=== PATIENT | male | born 1955 | race Caucasian/White ===

== ENCOUNTER 2016-10-22 14:59 | Inpatient (IN) | payer OTHER ==
[~2016-10-22] VITALS: Ht 165.1 cm; Wt 58.9 kg
[2016-10-22] MEDS ORDERED: FAMOTIDINE 20 MG INJ IV STA (17:43)
[2016-10-22] MEDS ORDERED: ONDANSETRON 4 MG INJ IV STA (17:43)
[2016-10-22] MEDS ORDERED: SOD CHLORIDE 0.9% 1,000 ML IV STA (17:43)
[2016-10-22] MEDS ORDERED: DEXL60CA2 PO (18:27)
[2016-10-22] MEDS ORDERED: [UNRECOGNIZED DRUG - OTHER] PO (18:31)
[2016-10-22 18:37] LABS: BASOPHIL # 0.1 10^3/ul (0.0-0.1); BASOPHILS % 0.9 % (0.0-2.0); EOSINOPHILS # 0.2 10^3/ul (0.0-0.5); EOSINOPHILS % 3.5 % (0.0-7.0); HEMATOCRIT 43.6 % (42.0-52.0); HEMOGLOBIN 14.7 g/dl (14.0-18.0); LYMPHOCYTES # 1.8 10^3/ul (0.8-2.9); LYMPHOCYTES % 28.6 % (15.0-51.0); MEAN CORPUSCULAR HEMOGLOBIN 29.6 pg (29.0-33.0); MEAN CORPUSCULAR HGB CONC 33.8 g/dl (32.0-37.0); MEAN CORPUSCULAR VOLUME 87.5 fl (82.0-101.0); MONOCYTE # 0.8 10^3/ul (0.3-0.9); MONOCYTES % 13.4 % (0.0-11.0); NEUTROPHIL # 3.4 10^3/ul (1.6-7.5); NEUTROPHILS % 53.6 % (39.0-77.0); PLATELET COUNT 373 10^3/UL (140-440); RED BLOOD COUNT 4.98 10^6/ul (4.70-6.10); RED CELL DISTRIBUTION WIDTH 13.9 % (11.5-14.5); UNCORRECTED WBC 6.3 10^3/ul (4.8-10.8); WHITE BLOOD COUNT 6.3 10^3/ul (4.8-10.8)
[2016-10-22 18:39] LABS: CONDITION 1
[2016-10-22 18:47] LABS: ALBUMIN 3.4 g/dl (3.3-4.9)
[2016-10-22 18:48] LABS: POTASSIUM 3.9 mmol/L (3.5-5.1)
[2016-10-22 18:50] LABS: ALBUMIN/GLOBULIN RATIO 1.06; BILIRUBIN,INDIRECT 0.6 mg/dl (0-1.1); BILIRUBIN,TOTAL 0.6 mg/dl (0.2-1.3); CREATININE 0.59 mg/dl (0.61-1.24); TOTAL PROTEIN 6.6 g/dl (6.1-8.1)
[2016-10-22 18:51] LABS: CALCIUM 8.9 mg/dl (8.4-10.2)
[2016-10-22 18:57] LABS: ADD UMIC NO; URINE BILIRUBIN (Dip) 1+ (NEGATIVE); URINE BLOOD (Dip) NEGATIVE (NEGATIVE); URINE COLOR YELLOW (YELLOW); URINE GLUCOSE (Dip) NEGATIVE (NEGATIVE); URINE KETONES (Dip) TRACE (NEGATIVE); URINE LEUKOCYTE ESTERASE (Dip) NEGATIVE (NEGATIVE); URINE NITRITE (Dip) NEGATIVE (NEGATIVE); URINE TOTAL PROTEIN (Dip) NEGATIVE (NEGATIVE); URINE UROBILINOGEN (Dip) 2.0 E.U./dL (0.1-1.0)
[2016-10-22] MEDS ORDERED: IOHEXOL 300MG/ML 150 ML BTL ONE (19:02)
[2016-10-22] MEDS ORDERED: SOD CHLORIDE 0.9% 100 ML ONE (19:02)
[2016-10-22 19:14] LABS: ICTOTEST NEGATIVE (NEGATIVE)
--- NOTE | 2016-10-22 19:39 | RADRPT ---
PROCEDURE: CT Abdomen and Pelvis with contrast. CLINICAL INDICATION: Abdominal pain, nausea/vomiting status post surgery 2 months ago TECHNIQUE: CT scan of the abdomen and pelvis with contrast was performed on a multidetector high-r Secure-24olution CT scanner. 90 cc of Omnipaque-300 was injected intravenously.. No oral contrast was admin istered. Coronal and sagittal reformatted images were obtained from the axial source images. Images were reviewed on a high-resolution PACS workstation. The total exam CTDI equals 7.53 mGy and the to karthikeyan exam DLP equals 440.5 mGy-cm. COMPARISON: None. FINDINGS: Lungs: There is a nonspecific 4 mm nodular density in the right lower lung lobe. There are 2 nonspe cific nodular densities in the lingula measuring 5 mm and 6 mm respectively. There is minimal linea r atelectasis/fibrosis scattered at the lung bases. There is nonspecific approximate 6 mm nodular d ensity in the left lower lung lobe. Liver: No abnormality seen. Gallbladder: Minimal pericholecystic fluid apparent. Spleen: No abnormality seen. Stomach: There is diffuse wall thickening of the gastric antrum and possibly the first portion of t he duodenum suspicious for malignancy. Opaque sutures apparent in the anterior gastric wall. Pancreas: No intrinsic abnormality is seen. Adrenals: No abnormality seen. Kidneys: Minimal fluid in bilateral renal collecting systems. Bilateral 1 cm renal cysts. Abdominal aorta: No aneurysm seen. Atherosclerotic calcification is seen. Calcification in iliac a rteries. Lymph nodes: There is adenopathy with enlarged lymph nodes in the gastrohepatic ligament, periporta l, peripancreatic, celiac, portocaval, aortocaval, left periaortic regions consistent with metastase s with an approximate 8.3 cm maximum transverse, 9.7 cm maximum anterior-posterior dimension conglom erate siddharth mass. Small bowel: Please see above. Colon: Moderate amount of stool in the rectum. Appendix: Not seen. Bladder: Impression on posterior inferior bladder by enlarged prostate. Appearance of diffuse wall t hickening which may at least partially be due to underdistension. Pelvic organs: Moderately enlarged prostate with impression on posterior inferior bladder. Ascites: Small amount of ascites. Osseous structures: Lumbar spondylosis. Degenerative changes at sacroiliac joints and hips. IMPRESSION: Diffuse wall thickening of the gastric antrum and possibly the first portion of the duodenum suspici ous for malignancy. There is marked narrowing of the region of the pylorus/ duodenal bulb suggesting impending gastric outlet obstruction. Adenopathy with enlarged lymph nodes in the gastrohepatic lig ament, periportal, peripancreatic, celiac, portocaval, aortocaval, left periaortic regions consisten t with metastases with an approximate 8.3 cm maximum transverse, 9.7 cm maximum anterior-posterior d imension conglomerate siddharth mass. Nonspecific nodular densities at lung bases. These could represen t metastases. Small amount of ascites. Moderately enlarged prostate. Please see above. A call repo rt was made to <<Referring Physicians Name>> on <<DATETIME>>. RPTAT: HJES .Ivan Gordon MD, Date Time Electronically viewed and signed by .Ivan Gordon MD, MD on 10/22/2016 19:38 .S/
[2016-10-22] MEDS ORDERED: SOD CHLORIDE 0.9% 1,000 ML IV SCH (19:45)
--- NOTE | 2016-10-22 19:51 | ERA ---
ER Documentation Chief Complaint Date/Time DATE: 10/22/16 TIME: 19:48 Chief Complaint sent by pmd to r/o obstruction see attached HPI This is a 61-year-old male with a history of gastric cancer not on chemo who presents to the emergency room for evaluation of vomiting and abdominal pain. Patient was seen by his primary care physician, was sent to the emergency room for further evaluation of his symptoms. The patient localizes the abdominal pain to the midportion of his abdomen and states it is an achy pain relief with vomiting and worse with food and laying flat ROS All systems reviewed and are negative except as per history of present illness. Medications Home Meds Reported Medications [Dosier] No Conflict Check, 5 MG PO BID 10/22/16 Dexlansoprazole (Dexilant) 60 Mg Cap., 60 MG PO DAILY, #30 CAP 10/22/16 Allergies Allergies: Coded Allergies: No Known Allergy (Unverified , 10/22/16) PMhx/Soc History of Surgery: Yes (lymphoma of the stomach) Hx Miscellaneous Medical Probl: Yes (DM) Hx Alcohol Use: No Hx Substance Use: No Hx Tobacco Use: No Smoking Status: Never smoker Physical Exam Vitals Vital Signs Date Time Temp Pulse Resp B/P Pulse Ox O2 Delivery O2 Flow Rate FiO2 10/22/16 15:04 97.6 75 20 115/65 98 Physical Exam INITIAL VITAL SIGNS: Reviewed by me GENERAL: The patient is well developed and appropriate for usual state of health in no apparent distress HEENT: Pupils equal, round, and reactive to light. EOMI. There is no scleral icterus. NECK: C-spine is soft and supple, there is no meningismus. There is no cervical lymphadenopathy. LUNGS: Clear to auscultation bilaterally. There are no rales, wheezes or rhonchi. HEART: Regular rate and rhythm, no murmurs, clicks, rubs or gallops. ABDOMEN: Epigastric tenderness to palpation, otherwise, negative Rodriguez's non- distended. There are bowel sounds in all four quadrants. No rebound or guarding. EXTREMITIES: There is no peripheral cyanosis or edema. No focal swelling or erythema. NEUROLOGICAL: The patient moves all four extremities with 5/5 strength. Cranial nerves II - XII are intact. Normal gait. Alert and oriented SKIN: There is no apparent rash or petechiae. HEME/LYMPHATIC: There is no evidence of excessive bruising or lymphedema. PSYCHIATRIC: The patient does not appear anxious or depressed. Result Diagram: 10/22/16181410/22/161814 Results 24 hrs Laboratory Tests Test 10/22/16 18:15 Alanine Aminotransferase (ALT/SGPT) 37IU/L Albumin 3.4g/dl Albumin/Globulin Ratio 1.06 Alkaline Phosphatase 122IU/L Anion Gap 16 Aspartate Amino Transf (AST/SGOT) 18IU/L Basophils # 0.110^3/ul Basophils % 0.9% Blood Morphology Comment Blood Urea Nitrogen 16mg/dl Calcium Level 8.9mg/dl Carbon Dioxide Level 28mmol/L Chloride Level 96mmol/L Creatinine 0.59mg/dl Direct Bilirubin 0.00mg/dl Eosinophils # 0.210^3/ul Eosinophils % 3.5% Globulin 3.20g/dl Glucose Level 161mg/dl Hematocrit 43.6% Hemoglobin 14.7g/dl Indirect Bilirubin 0.6mg/dl Lipase 111U/L Lymphocytes # 1.810^3/ul Lymphocytes % 28.6% Mean Corpuscular Hemoglobin 29.6pg Mean Corpuscular Hemoglobin Concent 33.8g/dl Mean Corpuscular Volume 87.5fl Mean Platelet Volume 7.0fl Monocytes # 0.810^3/ul Monocytes % 13.4% Neutrophils # 3.410^3/ul Neutrophils % 53.6% Nucleated Red Blood Cells # 0.010^3/ul Nucleated Red Blood Cells % 0.0/100WBC Platelet Count 31521^3/UL Potassium Level 3.9mmol/L Red Blood Count 4.9810^6/ul Red Cell Distribution Width 13.9% Sodium Level 136mmol/L Total Bilirubin 0.6mg/dl Total Protein 6.6g/dl Urine Bilirubin 1+ Urine Clarity CLEAR Urine Color YELLOW Urine Glucose NEGATIVE% Urine Hemoglobin NEGATIVE Urine Ictotest NEGATIVE Urine Ketones TRACE Urine Leukocyte Esterase NEGATIVE Urine Nitrite NEGATIVE Urine Specific [place] 1.025 Urine Total Protein NEGATIVE Urine Urobilinogen 2.0 E.U./dL Urine pH 6.0 White Blood Count 6.310^3/ul Current Medications Medications (Trade) Dose Ordered Sig/Sasha Route PRN Reason Start Time Stop Time Status Last Admin Dose Admin Sodium Chloride (NS) 1,000 ml @ 1,000 mls/hr Q1H STAT IV 10/22/16 17:43 10/22/16 18:42 DC 10/22/16 18:32 Ondansetron HCl (Zofran Inj) 4 mg ONCE STAT IV 10/22/16 17:43 10/22/16 17:44 DC 10/22/16 18:32 Famotidine (Pepcid Iv) 20 mg ONCE STAT IV 10/22/16 17:43 10/22/16 17:44 DC 10/22/16 18:32 IV Flush 10 ml 10 ml STK-MED ONCE .ROUTE 10/22/16 19:02 10/22/16 19:03 DC 10/22/16 19:13 Sodium Chloride (NS) 100 ml @ ud STK-MED ONCE .ROUTE 10/22/16 19:02 10/22/16 19:03 DC 10/22/16 19:13 Iohexol 150 ml 150 ml STK-MED ONCE .ROUTE 10/22/16 19:02 10/22/16 19:03 DC 10/22/16 19:13 Sodium Chloride (NS) 1,000 ml @ 125 mls/hr Q8H IV 10/22/16 19:45 10/23/16 03:44 Ondansetron HCl (Zofran Inj) 4 mg BRIDGE ORDER PRN IV NAUSEA AND/OR VOMITING 10/22/16 20:00 10/23/16 19:59 Acetaminophen (Tylenol Tab) 650 mg ER BRIDGE PRN PO MILD PAIN/FEVER 10/22/16 20:00 10/23/16 19:59 Procedures/MDM CT abdomen pelvis with IV contrast: Diffuse wall thickening of the gastric antrum and possibly the first portion of the duodenum suspicious for malignancy. There is marked narrowing of the region of the pylorus/ duodenal bulb suggesting impending gastric outlet obstruction. Adenopathy with enlarged lymph nodes in the gastrohepatic ligament, periportal, peripancreatic, celiac, portocaval, aortocaval, left periaortic regions consistent with metastases with an approximate 8.3 cm maximum transverse, 9.7 cm maximum anterior-posterior dimension conglomerate siddharth mass. Nonspecific nodular densities at lung bases. These could represent metastases. Small amount of ascites. Moderately enlarged prostate This is a 61-year-old male who presents to the emergency room for evaluation of abdominal pain, nausea and vomiting. This patient does have a history of gastric carcinoma which she is aware of. The patient is having difficulty holding down his food, states that when he eats he vomits. The patient was evaluated by myself and did have epigastric tenderness to palpation. CT of the abdomen and pelvis with contrast does reveal known gastric carcinoma and impending gastric outlet obstruction. This patient will be placed for admission at this time for symptomatic management and possible GI consult for gastric outlet obstruction. He is aware of his condition and plan of care. he is medically stable for [facility]. Departure Diagnosis: Primary Impression: Abdominal pain Additional Impression: Gastric outlet obstruction Condition: Stable MERCY AGUIRRE DO Oct 22, 2016 19:50
[2016-10-22] MEDS ORDERED: ACETAMINOPHEN 325 MG TAB PO PRN (20:00)
[2016-10-22] MEDS ORDERED: ONDANSETRON 4 MG INJ IV PRN (20:00)
[2016-10-22 22:00] VITALS: PULSE 70; Ht 165.1 cm; Wt 58.9 kg
[2016-10-22] MEDS: ZOLPIDEM 5 MG TAB PO PRN (22:37)
[2016-10-22] MEDS ORDERED: GLUCOSE GEL 15 GRAM TUBE BUCCAL PRN (23:30)
[2016-10-22] MEDS ORDERED: GLUCOSE GEL 15 GRAM TUBE PO PRN ×2 (23:30)
[2016-10-22] MEDS ORDERED: GLUCAGON 1 MG INJ IM PRN (23:30)
[2016-10-22] MEDS ORDERED: DEXTROSE 50% 50 ML SYRINGE IV PRN ×2 (23:30)
[2016-10-22] MEDS: SOD CHLORIDE 0.9% 1,000 ML IV SCH (23:34)
[2016-10-22] MEDS: DOCUSATE SODIUM 100 MG CAP PO SCH (23:36)
--- NOTE | 2016-10-22 23:42 | HP ---
DATE OF ADMISSION: 10/22/2016 PRESENTING COMPLAINT: Intermittent abdominal pain, nausea and vomiting. HISTORY OF PRESENTING COMPLAINT: Mr. Horn is a pleasant 61-year-old male with a past medical history only of diabetes who was recently diagnosed with a gastric lymphoma in [place] just about a m onth ago. The patient had gone in to see a doctor in [place] because of intermittent abdominal pain as well as occasional nausea and vomiting, underwent an upper endoscopy, and was found to have a gas tric mass. The mass was biopsied and was found to be cancerous. According to the son, a laparoscop ic surgery was done with the intention of possible resection of the mass; however, upon opening the patient up the son reports that the doctors were unable to resect the mass. Hence, he was referred for chemotherapy. He then returned to the [facility] here where he resides. He went to see his primary care physician about 2 weeks ago with the reports from [place]. His primary care physician h as put in referrals to oncology as well as GI. However, they are still in the process of awaiting i nsurance approval. They returned for a followup today and in the interim, the patient's nausea and vomiting has worsened. He is only able to tolerate low volumes of water and sometimes able to keep down his food, but more often than not, he tends to vomit whatever he eats. These episodes are usua lly associated with intractable abdominal pain, however. Patient has lost significant weight, per h is son. He, however, has no pain at this time, is not actively vomiting, but the patient does repor t a lot of nausea. There is no diarrhea and there is no hematochezia or hematemesis at this point. The patient also denies chest pain, denies shortness of breath or palpitations. REVIEW OF SYSTEMS: A 12-point review of systems was done and pertinent findings are as noted. PAST MEDICAL HISTORY: Positive for gastric lymphoma and diabetes mellitus. PAST SURGICAL HISTORY: Positive only for recent laparoscopic surgery for cancer staging. ALLERGIES: HE HAS NO KNOWN DRUG ALLERGIES. SOCIAL HISTORY: The patient never smoked, does not drink alcohol and has never abused illicit drugs . FAMILY HISTORY: Negative for stomach or colon cancer. PHYSICAL EXAMINATION VITAL SIGNS: Temperature 97.6, pulse is 75, respirations 20, blood pressure 115/65, saturation 98% on room air. GENERAL: I found an actinic gentleman in no acute distress, alert and oriented. HEENT: Head is normocephalic with equal, round, and reactive pupils. Mucous membranes were moist. There was no scleral jaundice. No conjunctival pallor. Posterior pharynx was clear of erythema an d exudate. NECK: Supple, nontender, without JVD or adenopathy. CHEST: Clear to auscultation with good air entry on both sides. CARDIOVASCULAR: S1 and S2, without added sounds or murmurs. ABDOMEN: Soft, nontender, nondistended. Normoactive bowel sounds. The patient's surgical scars no jay and healing very well without evidence of cellulitis or drainage. LOWER EXTREMITIES: Negative for edema. NEUROLOGIC: He has no focal deficits. SKIN: Not jaundiced and is without rash. PSYCHIATRIC: He was calm and cooperative with physical exam. LABORATORY VALUES: His CBC was completely normal, as was a CMP, except his alkaline phosphatase was mildly elevated at 122. Lipase levels were also normal. Urinalysis was not suggestive of an infec tion. IMAGING: A CT scan of his abdomen did show diffuse wall thickening of the gastric antrum with marke d narrowing of the region of the pylorus/duodenal bulb suggestive of impending gastric outlet obstru ction with diffuse adenopathy as well as moderate prostatic enlargement. IMPRESSION: A 61-year-old male with: 1. Intractable nausea, vomiting and intermittent abdominal pain secondary to impending gastric outl et obstruction secondary to #2. 2. 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 3. Diet-controlled diabetes mellitus. PLAN: The patient is to be admitted to the medical-surgical floor. He will be kept n.p.o. for now and put on maintenance IV fluids. We will obtain consultation with GI as well as oncology. GI will assess and see if the patient would benefit from stent placement, after which we might be able to a dvance his diet. The patient has his pathology reports from [place] as well as his EGD pictures and reports. If this is adequate for oncology, maybe we will discuss the plan to commence chemotherapy sooner than later. If not, the patient might require repeat biopsies from endoscopy procedures and based on this, oncology may proceed with the decision on how to treat. We will defer to them on the se, however. Other than that, we will provide supportive care to include IV fluids, pain control, a ntiemetics and antipyretics if those become needed. We will closely monitor patient, especially fo r GI bleeding and plan to intervene as appropriate if and when necessary. Prophylaxis will be with SCDs and intravenous PPI therapy twice a day and further interventions will depend on his clinical c ourse. I have discussed this plan with the patient in detail. I have answered questions. I have s poken with the patient's son. I have reviewed documentation sent from [place] and have reviewed docu mentation in house here. Overall evaluation time has been more than 1 hour. For clarification and further information, jefry sherwood review the patient's chart and my orders. Dictated By: POOJA VILLA MD, BA/AMBROSE Conf#: [id number] DID#: [id number]
[2016-10-23] VITALS (8 sets, daily range): BP systolic 105–131; BP diastolic 54–77; PULSE 63–88; RESP 12–55
[2016-10-23] MEDS: ACCUCHECK XX SCH (02:00)
[2016-10-23] MEDS: PANTOPRAZOLE 40 MG INJ IV SCH (05:38)
[2016-10-23 05:45] LABS: BASOPHILS % 0.5 % (0.0-2.0); EOSINOPHILS # 0.3 10^3/ul (0.0-0.5); EOSINOPHILS % 5.1 % (0.0-7.0); HEMATOCRIT 38.8 % (42.0-52.0); HEMOGLOBIN 13.1 g/dl (14.0-18.0); LYMPHOCYTES # 1.3 10^3/ul (0.8-2.9); LYMPHOCYTES % 22.8 % (15.0-51.0); MEAN CORPUSCULAR HEMOGLOBIN 29.6 pg (29.0-33.0); MEAN CORPUSCULAR HGB CONC 33.8 g/dl (32.0-37.0); MEAN CORPUSCULAR VOLUME 87.5 fl (82.0-101.0); MEAN PLATELET VOLUME 6.4 fl (7.4-10.4); MONOCYTE # 0.8 10^3/ul (0.3-0.9); MONOCYTES % 13.1 % (0.0-11.0); NEUTROPHIL # 3.4 10^3/ul (1.6-7.5); NEUTROPHILS % 58.5 % (39.0-77.0); PLATELET COUNT 350 10^3/UL (140-440); RED BLOOD COUNT 4.43 10^6/ul (4.70-6.10); RED CELL DISTRIBUTION WIDTH 13.8 % (11.5-14.5); UNCORRECTED WBC 5.8 10^3/ul (4.8-10.8); WHITE BLOOD COUNT 5.8 10^3/ul (4.8-10.8)
[2016-10-23 05:55] LABS: POTASSIUM 4.7 mmol/L (3.5-5.1)
[2016-10-23 05:57] LABS: CREATININE 0.69 mg/dl (0.61-1.24)
[2016-10-23 05:58] LABS: CALCIUM 8.5 mg/dl (8.4-10.2); MAGNESIUM 1.9 mg/dl (1.7-2.5)
[2016-10-23 06:15] LABS: CONDITION 1
[2016-10-23] MEDS: INSULIN ASPART [NOVOLOG] 3 ML PEN SC SCH ×4 (07:59→21:00)
--- NOTE | 2016-10-23 08:24 | PN ---
Date/Time of Note Date/Time of Note DATE: 10/23/16 TIME: 08:17 Assessment/Plan VTE Prophylaxis VTE Prophylaxis Intervention: SCD's Lines/Catheters IV Catheter Type (from Nrs): Peripheral IV Assessment/Plan Chief Complaint/Hosp Course Assessment and plan 1. Intractable nausea and vomiting secondary to gastric outlet obstruction from gastric mass (recent diagnosis of metastatic gastric lymphoma). Patient to be placed on IV fluids for now. We'll provide with antiemetics as needed. Working Second Hand as well as oncologist following 2. Reported diabetes mellitus. Follow-up with A1c. Continue carbohydrate controlled diet. We'll provide with insulin regimen and adjust as needed GERD prophylaxis: PPI Disposition and plan: We'll keep patient npo for now. Follow-up with finance accounting internship recommendations. Continue inpatient monitoring Discussed plan of care with Dr. Ortiz Problems: Subjective 24 Hr Interval Summary Free Text/Dictation Patient resting at this time. Reports only some right abdominal quadrant pain. Exam/Review of Systems Vital Signs Vitals Vital Signs Date Time Temp Pulse Resp B/P Pulse Ox O2 Delivery O2 Flow Rate FiO2 10/22/16 22:00 97.7 70 10/22/16 20:49 18 99 Room Air Intake and Output 10/22/16 10/22/16 10/23/16 15:00 23:00 07:00 Intake Total 660 ml Balance 660 ml Exam General: No acute signs or symptoms of distress Eyes: pupils equal round, Anicteric sclera Neck: Supple nontender, no JVD Cardiac: S1, S2 auscultated, regular rhythm and rate Pulmonary: No coarse rhonchi or breathing auscultated GI: Minimally tender upon palpation more noted on right abdominal quadrant Extremities: No edema bilateral lower extremities Skin: Clean dry and intact Neurologic: Alert to person place and time and situation Results Result Diagram: 10/23/16 0520 10/23/16 0520 Results 24 hrs Laboratory Tests Test 10/22/16 18:15 10/22/16 23:35 10/23/16 05:20 10/23/16 07:46 Alanine Aminotransferase (ALT/SGPT) 37 Albumin 3.4 Albumin/Globulin Ratio 1.06 Alkaline Phosphatase 122 H Anion Gap 16 13 Aspartate Amino Transf (AST/SGOT) 18 Basophils # 0.1 0.0 Basophils % 0.9 0.5 Blood Morphology Comment Blood Urea Nitrogen 16 13 Calcium Level 8.9 8.5 Carbon Dioxide Level 28 28 Chloride Level 96 L 101 Creatinine 0.59 L 0.69 Direct Bilirubin 0.00 Eosinophils # 0.2 0.3 Eosinophils % 3.5 5.1 Globulin 3.20 Glucose Level 161 92 # Hematocrit 43.6 38.8 L Hemoglobin 14.7 13.1 L Indirect Bilirubin 0.6 Lipase 111 Lymphocytes # 1.8 1.3 Lymphocytes % 28.6 22.8 Mean Corpuscular Hemoglobin 29.6 29.6 Mean Corpuscular Hemoglobin Concent 33.8 33.8 Mean Corpuscular Volume 87.5 87.5 Mean Platelet Volume 7.0 L 6.4 L Monocytes # 0.8 0.8 Monocytes % 13.4 H 13.1 H Neutrophils # 3.4 3.4 Neutrophils % 53.6 58.5 Nucleated Red Blood Cells # 0.0 0.0 Nucleated Red Blood Cells % 0.0 0.0 Platelet Count 373 350 Potassium Level 3.9 4.7 Red Blood Count 4.98 4.43 L Red Cell Distribution Width 13.9 13.8 Sodium Level 136 137 Total Bilirubin 0.6 Total Protein 6.6 Urine Bilirubin 1+ H Urine Clarity CLEAR Urine Color YELLOW Urine Glucose NEGATIVE Urine Hemoglobin NEGATIVE Urine Ictotest NEGATIVE Urine Ketones TRACE Urine Leukocyte Esterase NEGATIVE Urine Nitrite NEGATIVE Urine Specific [place] 1.025 Urine Total Protein NEGATIVE Urine Urobilinogen 2.0 E.U./dL H Urine pH 6.0 White Blood Count 6.3 5.8 Bedside Glucose 105 85 Magnesium Level 1.9 Medications Medications Current Medications Zolpidem Tartrate (Ambien) 5 mg HS PRN PO INSOMNIA Last administered on at 22:37; Admin Dose 5 MG; Start 10/22/16 at 22:30 Docusate Sodium (Colace) 100 mg BID PO Last administered on 10/22/16at 23:36; Admin Dose 100 MG; Start 10/22/16 at 23:30 Ondansetron HCl (Zofran Inj) 4 mg Q6H PRN IV NAUSEA AND/OR VOMITING; Start at 23:30 Acetaminophen (Tylenol Tab) 650 mg Q6H PRN PO PAIN AND OR ELEVATED TEMP; Start 10/22/16 at 23:30 Pantoprazole (Protonix Iv) 40 mg DAILY@06 IV Last administered on 10/23/16at 05 :38; Admin Dose 40 MG; Start 10/23/16 at 06:00 Diagnostic Test (Pha) 1 ea 1 ea 02 XX ; Start 10/23/16 at 02:00 Sodium Chloride (NS) 1,000 ml @ 80 mls/hr [id number] IV Last administered on at 23:34; Admin Dose 80 MLS/HR; Start 10/22/16 at 23:30 Miscellaneous Information 1 ea NOTE XX ; Start 10/22/16 at 23:30 Glucose (Glutose) 15 gm Q15M PRN PO DECREASED GLUCOSE; Start 10/22/16 at 23:30 Glucose (Glutose) 22.5 gm Q15M PRN PO DECREASED GLUCOSE; Start 10/22/16 at 23: 30 Dextrose (D50w Syringe) 25 ml Q15M PRN IV DECREASED GLUCOSE; Start 10/22/16 at 23:30 Dextrose (D50w Syringe) 50 ml Q15M PRN IV DECREASED GLUCOSE; Start 10/22/16 at 23:30 Glucagon (Glucagen) 1 mg Q15M PRN IM DECREASED GLUCOSE; Start 10/22/16 at 23: 30 Glucose (Glutose) 15 gm Q15M PRN BUCCAL DECREASED GLUCOSE; Start 10/22/16 at 23:30 GLORIA COOLEY Oct 23, 2016 08:24
[2016-10-23] MEDS: DOCUSATE SODIUM 100 MG CAP PO SCH ×2 (09:02→22:40)
[2016-10-23] MEDS: SOD CHLORIDE 0.9% 1,000 ML IV SCH ×2 (11:06→11:58)
[2016-10-23] MEDS ORDERED: FENTAnyl 50 MCG/ML VIAL ONE (13:59)
[2016-10-23] MEDS ORDERED: MIDAZOLAM 1 MG/ML 2 ML INJ ONE (13:59)
[2016-10-23] MEDS ORDERED: PROPOFOL 20 ML ONE (13:59)
--- NOTE | 2016-10-23 14:15 | CONS ---
Date/Time of Note Date/Time of Note DATE: 10/23/16 TIME: 13:56 Assessment/Plan Assessment/Plan Additional Assessment/Plan Assessment: * Persistent nausea and vomiting/gastric outlet obstruction * Known gastric mass, diagnosed lymphoma in [place] * Unresectable large distal gastric proximal intestinal mass with significant lymphadenopathy * History of diabetes mellitus Plan: * EGD now. Patient informed of risks, benefits and alternatives. Agreeable to proceed * Further recommendations will depend on our findings. 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 The patient has been previously evaluated approximately 1 month prior in [place] for similar symptoms , underwent endoscopic evaluation at which time a mass was noted in the antrum of the stomach which was biopsied and appeared to represent a lymphoma. The patient also had laparoscopic attempted resection which were unsuccessful. The patient was advised chemotherapy and radiation therapy but decided to come back to the [facility] where he normally resides. He saw his primary care physician and is currently awaiting authorization to see a rf design engineer and oncologist as outpatient however his situation deteriorated with his inability to maintain nutrition and it is for this reason she presents to the emergency room. The patient has had a CAT scan of the abdomen which showed a very large mass likely leading to gastric outlet obstruction. Oncology consultation is pending.. At this point we will evaluate endoscopically to obtain tissue diagnosis and expedite his treatment which likely will required radiation and chemotherapy. We will also address the feasibility of stenting the outlet of the stomach to provide palliative relief of gastric outlet obstruction. Constitutional: other (Weight loss), poor po Eyes: no complaints ENT: no complaints Respiratory: no complaints Cardiovascular: no complaints Gastrointestinal: decreased appetite, nausea, pain (Epigastric), vomiting Genitourinary: no complaints Musculoskeletal: no complaints Skin: no complaints Neurologic: no complaints Endocrine: no complaints Lymphatic: no complaints Psychological: nl mood/affect, no complaints Immunologic: no complaints Past Medical History Medical History: other (Gastric lymphoma) Past Surgical History Past Surgical Hx: endoscopy, other (Laparoscopy September 12, 2016) Family History Significant Family History: no pertinent family hx Social History Alcohol Use: occasionally Smoking Status: Never smoker Drug Use: none Exam/Review of Systems Vital Signs Vitals Vital Signs Date Time Temp Pulse Resp B/P Pulse Ox O2 Delivery O2 Flow Rate FiO2 10/23/16 08:00 97.8 72 18 120/63 98 Room Air Intake and Output 10/22/16 10/22/16 10/23/16 14:59 22:59 06:59 Intake Total 660 ml Balance 660 ml Exam Constitutional: alert, oriented, well developed (Undernourished) Psych: nl mood/affect, no complaints Head: atraumatic, normocephalic Eyes: EOMI, PERRL, nl conjunctiva, nl lids, nl sclera ENMT: nl external ears & nose, nl lips & teeth, nl nasal mucosa & septum Neck: non-tender, supple Respiratory: clear to auscultation, normal air movement Cardiovascular: nl pulses, regular rate and rhythm Gastrointestinal: bowel sounds, hepatomegaly, mass (Ill-defined fullness/mass in the epigastrium right upper quadrant areas), non-tender, soft, surgical scars (Recent laparoscopy), No rebound or guarding, No splenomegaly, No tender Musculoskeletal: nl extremities to inspection, nl gait and stance Extremities: normal pulses Neurological: PERSONAL LINES ACCOUNT MANAGER II-XII intact, nl mental status, nl speech, nl strength Skin: nl turgor, No rash or lesions Results Result Diagram: 10/23/16 0520 10/23/16 0520 Results 24 hrs Laboratory Tests Test 10/22/16 18:15 10/22/16 23:35 10/23/16 05:20 10/23/16 07:46 Alanine Aminotransferase (ALT/SGPT) 37 Albumin 3.4 Albumin/Globulin Ratio 1.06 Alkaline Phosphatase 122 H Anion Gap 16 13 Aspartate Amino Transf (AST/SGOT) 18 Basophils # 0.1 0.0 Basophils % 0.9 0.5 Blood Morphology Comment Blood Urea Nitrogen 16 13 Calcium Level 8.9 8.5 Carbon Dioxide Level 28 28 Chloride Level 96 L 101 Creatinine 0.59 L 0.69 Direct Bilirubin 0.00 Eosinophils # 0.2 0.3 Eosinophils % 3.5 5.1 Globulin 3.20 Glucose Level 161 92 # Hematocrit 43.6 38.8 L Hemoglobin 14.7 13.1 L Indirect Bilirubin 0.6 Lipase 111 Lymphocytes # 1.8 1.3 Lymphocytes % 28.6 22.8 Mean Corpuscular Hemoglobin 29.6 29.6 Mean Corpuscular Hemoglobin Concent 33.8 33.8 Mean Corpuscular Volume 87.5 87.5 Mean Platelet Volume 7.0 L 6.4 L Monocytes # 0.8 0.8 Monocytes % 13.4 H 13.1 H Neutrophils # 3.4 3.4 Neutrophils % 53.6 58.5 Nucleated Red Blood Cells # 0.0 0.0 Nucleated Red Blood Cells % 0.0 0.0 Platelet Count 373 350 Potassium Level 3.9 4.7 Red Blood Count 4.98 4.43 L Red Cell Distribution Width 13.9 13.8 Sodium Level 136 137 Total Bilirubin 0.6 Total Protein 6.6 Urine Bilirubin 1+ H Urine Clarity CLEAR Urine Color YELLOW Urine Glucose NEGATIVE Urine Hemoglobin NEGATIVE Urine Ictotest NEGATIVE Urine Ketones TRACE Urine Leukocyte Esterase NEGATIVE Urine Nitrite NEGATIVE Urine Specific [place] 1.025 Urine Total Protein NEGATIVE Urine Urobilinogen 2.0 E.U./dL H Urine pH 6.0 White Blood Count 6.3 5.8 Bedside Glucose 105 85 Hemoglobin A1c 6.8 H Magnesium Level 1.9 Test 10/23/16 11:42 Bedside Glucose 85 Medications Medications Current Medications Zolpidem Tartrate (Ambien) 5 mg HS PRN PO INSOMNIA Last administered on at 22:37; Admin Dose 5 MG; Start 10/22/16 at 22:30 Docusate Sodium (Colace) 100 mg BID PO Last administered on 10/23/16at 09:02; Admin Dose 100 MG; Start 10/22/16 at 23:30 Ondansetron HCl (Zofran Inj) 4 mg Q6H PRN IV NAUSEA AND/OR VOMITING; Start at 23:30 Acetaminophen (Tylenol Tab) 650 mg Q6H PRN PO PAIN AND OR ELEVATED TEMP; Start 10/22/16 at 23:30 Pantoprazole (Protonix Iv) 40 mg DAILY@06 IV Last administered on 10/23/16at 05 :38; Admin Dose 40 MG; Start 10/23/16 at 06:00 Diagnostic Test (Pha) 1 ea 1 ea 02 XX ; Start 10/23/16 at 02:00 Sodium Chloride (NS) 1,000 ml @ 80 mls/hr [id number] IV Last administered on at 11:06; Admin Dose 80 MLS/HR; Start 10/22/16 at 23:30 Miscellaneous Information 1 ea NOTE XX ; Start 10/22/16 at 23:30 Glucose (Glutose) 15 gm Q15M PRN PO DECREASED GLUCOSE; Start 10/22/16 at 23:30 Glucose (Glutose) 22.5 gm Q15M PRN PO DECREASED GLUCOSE; Start 10/22/16 at 23: 30 Dextrose (D50w Syringe) 25 ml Q15M PRN IV DECREASED GLUCOSE; Start 10/22/16 at 23:30 Dextrose (D50w Syringe) 50 ml Q15M PRN IV DECREASED GLUCOSE; Start 10/22/16 at 23:30 Glucagon (Glucagen) 1 mg Q15M PRN IM DECREASED GLUCOSE; Start 10/22/16 at 23: 30 Glucose (Glutose) 15 gm Q15M PRN BUCCAL DECREASED GLUCOSE; Start 10/22/16 at 23:30 JV DIAZ MD Oct 23, 2016 14:15
[2016-10-23] MEDS: METOCLOPRAMIDE 10 MG INJ IV SCH ×3 (14:39→22:40)
[2016-10-23] MEDS: ONDANSETRON 4 MG INJ IV PRN (14:42)
--- NOTE | 2016-10-23 15:10 | GILP ---
DATE OF PROCEDURE: PROCEDURE: Esophagogastroduodenoscopy with biopsy. BRIEF HISTORY AND INDICATIONS: The patient is being evaluated for gastric outlet obstruction with p ersistent nausea and vomiting and a history of recently diagnosed lymphoma, apparently unresectable. PREMEDICATION: Monitored anesthesia care by anesthesiologist. SURGEON: Jv Rojas MD. INSTRUMENT USED: Olympus panendoscope. TECHNIQUE: After informed consent, with the patient/relatives understanding the procedure, its indic ations, potential risks and complications, including but not limited to: allergic reaction, bleeding , perforation or infection, and after all pertinent questions were answered to the patients satisfac tion, the patient/relatives signed witnessed informed consent. Following this, premedication was administered slowly IV push under careful cardiovascular and respi ratory monitoring with pulse oximetry, automatic blood pressure and lead javascript engineer. Once the sedative effect was achieved the patient was place in the left lateral decubitus, the panen doscope was introduced and advanced under visual control. Careful examination of the upper gastrointestinal tract, both on insertion as well as withdrawal of the instrument disclosed the following findings: ESOPHAGUS: The mucosa of the entire esophagus appears within normal limits. There is no evidence of esophagitis, varices, neoplasm or stricture. No hiatal hernia identified. STOMACH: Upon entrance to the stomach, air was insufflated, the gastric huynh distended normally. There is evidence of small amount of retained material in the stomach which is suctioned out without difficulty. The antrum of the stomach is occupied in its entirety by a very large and ulcerated ma ss which compromises the to a significant extent. I am, however, able to identify an opening and reach the small intestine. PYLORUS: The pylorus appears to be obliterated by the tumor. Outlet obstruction is partial. The instrument was brought back into the stomach. Multiple biopsies were obtained from the edges of the mass to obtain viable tissue. It also became evident that the patient has a patent surgical ga strojejunostomy. The enteric portion of the gastrojejunostomy appears patent and within normal limi ts with normal appearing mucosa. The instrument was withdrawn, and the patient tolerated the proced ure well. IMPRESSION 1. Large partially obstructing antral gastric mass, clearly malignant in nature with extensive ulce ration. Multiple biopsies were obtained. 2. Patent surgical gastrojejunostomy. PLAN: The patient will be continued on present regimen. A liquid diet will be instituted. Reglan will be added to his regimen to hopefully improve gastric emptying. There would be no benefit to st enting the gastric outlet obstruction as the patient has a patent gastrojejunostomy which is much wi jason than what a stent may accomplish without significant difficulties that it may entail. Oncology consultation is pending. The possibility of chemotherapy and radiation therapy if this turns out to be a lymphoma should provide relatively rapid and beneficial response. Dictated By: JV RO Conf#: [id number] DID#: [id number]
[2016-10-23] MEDS: ZOLPIDEM 5 MG TAB PO PRN (22:40)
[2016-10-24] MEDS: SOD CHLORIDE 0.9% 1,000 ML IV SCH ×3 (01:15→15:17)
[2016-10-24] MEDS: ACCUCHECK XX SCH (02:00)
[2016-10-24] MEDS: METOCLOPRAMIDE 10 MG INJ IV SCH ×3 (05:33→18:04)
[2016-10-24] MEDS: PANTOPRAZOLE 40 MG INJ IV SCH (05:33)
[2016-10-24 05:45] LABS: POTASSIUM 3.9 mmol/L (3.5-5.1)
[2016-10-24 05:47] LABS: CREATININE 0.65 mg/dl (0.61-1.24)
[2016-10-24 05:48] LABS: CALCIUM 8.3 mg/dl (8.4-10.2)
[2016-10-24 07:05] LABS: BASOPHILS % 0.6 % (0.0-2.0); CONDITION 1; EOSINOPHILS # 0.2 10^3/ul (0.0-0.5); EOSINOPHILS % 4.6 % (0.0-7.0); HEMATOCRIT 36.5 % (42.0-52.0); HEMOGLOBIN 12.5 g/dl (14.0-18.0); LYMPHOCYTES # 1.2 10^3/ul (0.8-2.9); LYMPHOCYTES % 23.2 % (15.0-51.0); MEAN CORPUSCULAR HEMOGLOBIN 29.8 pg (29.0-33.0); MEAN CORPUSCULAR HGB CONC 34.4 g/dl (32.0-37.0); MEAN CORPUSCULAR VOLUME 86.7 fl (82.0-101.0); MEAN PLATELET VOLUME 6.9 fl (7.4-10.4); MONOCYTE # 0.7 10^3/ul (0.3-0.9); MONOCYTES % 14.6 % (0.0-11.0); NEUTROPHIL # 2.9 10^3/ul (1.6-7.5); PLATELET COUNT 342 10^3/UL (140-440); RED BLOOD COUNT 4.21 10^6/ul (4.70-6.10); RED CELL DISTRIBUTION WIDTH 13.7 % (11.5-14.5); UNCORRECTED WBC 5.1 10^3/ul (4.8-10.8); WHITE BLOOD COUNT 5.1 10^3/ul (4.8-10.8)
[2016-10-24] MEDS: INSULIN ASPART [NOVOLOG] 3 ML PEN SC SCH ×4 (07:59→21:00)
[2016-10-24 08:00] VITALS: BP 167/74; PULSE 62; RESP 18
[2016-10-24] MEDS: DOCUSATE SODIUM 100 MG CAP PO SCH ×2 (08:00→21:17)
--- NOTE | 2016-10-24 12:52 | CONS ---
Date/Time of Note Date/Time of Note DATE: 10/24/16 TIME: 12:43 Assessment/Plan Assessment/Plan Chief Complaint/Hosp Course The patient is a 61 year old male with recent diagnosis of gastric lymphoma in [place], with nausea and vomiting due to gastric outlet obstruction - The patient underwent EGD with biopsy 10/23/16 that demonstrated a large obstructing antral gastric mass, clearly malignant with extensive ulceration. Multiple biopsies were obtained.Per Dr. Rojas, there would be no benefit to stenting the gastric outlet obstruction as the patient has a patent gastrojejunostomy which is much wider than what a stent may accomplish. - CT A/P with contrast 10/22/16 demonstrated diffuse wall thickening of the gastric antrum and possibly the first portion of the duodenum suspicious for malignancy. There is marked narrowing of the region of the pylorus/ duodenal bulb suggesting impending gastric outlet obstruction. Adenopathy with enlarged lymph nodes in the gastrohepatic ligament, periportal, peripancreatic, celiac, portocaval, aortocaval, left periaortic regions consistent with metastases with an approximate 8.3 cm maximum transverse, 9.7 cm maximum anterior-posterior dimension conglomerate siddharth mass. Nonspecific nodular densities at lung bases. These could represent metastases. Small amount of ascites - Will need outpatient PET/CT scan - Will order CT chest for staging while in house - Will need bone marrow biopsy for staging, ordered for tomorrow by Dr. Erwin - Follow-up final path from EGD yesterday prior to initiation of chemotherapy. 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 In the meantime, consider starting steroids if patient unstable, however will hold off until BMBx obtained as can affect results - Will need port placed - ordered for tomorrow, coags ordered. Patient NPO after midnight. - Check LDH, uric acid to monitor for tumor lysis - Will order TTE prior to anthracyclines, HIV, hepatitis panel prior to rituximab - Problems: Consultation Date/Type/Reason Admit Date/Time Oct 22, 2016 at 19:46 Date of Consultation: Oct 24, 2016 Type of Consultation: Hematology/Oncology Hx of Present Illness Mr. Horn is a pleasant 61-year-old male with a past medical history only of diabetes who was recently diagnosed with a gastric lymphoma in [place] just about a month ago. The patient had gone in to see a doctor in [place] because of intermittent abdominal pain as well as occasional nausea and vomiting, underwent an upper endoscopy, and was found to have a gastric mass. The mass was biopsied and was found to be cancer. According to the son, a laparoscopic surgery was done September 13, 2016 with the intention of possible resection of the mass; however, upon opening the patient up the son reports that the doctors were unable to resect the mass. Hence, he was referred for chemotherapy. He then returned to the [facility] here where he resides. He went to see his primary care physician about 2 weeks ago with the reports from [place]. His primary care physician has put in referrals to oncology as well as GI. However , they are still in the process of awaiting insurance approval. They returned for a followup today and in the interim, the patient's nausea and vomiting has worsened. He is only able to tolerate low volumes of water and sometimes able to keep down his food, but more often than not, he tends to vomit whatever he eats. These episodes are usually associated with intractable abdominal pain, however. Patient has lost significant weight, per his son, about 20 kg over the past 3 months. He, however, has no pain at this time, is not actively vomiting, but the patient does report a lot of nausea. There is no diarrhea and there is no hematochezia or hematemesis at this point though did have two episodes of vomiting "black" emesis in the past. The patient also denies chest pain, denies shortness of breath or palpitations. The patient underwent EGD with biopsy 10/23/16 that demonstrated a large obstructing antral gastric mass, clearly malignant with extensive ulceration. Multiple biopsies were obtained.Per Dr. Rojas, there would be no benefit to stenting the gastric outlet obstruction as the patient has a patent gastrojejunostomy which is much wider than what a stent may accomplish. He denies fevers, or night sweats but has had 20 kg of weight loss over 3 months. ECOG PS 1. He denies pain at this time. Constitutional: other (Weight loss), poor po Eyes: no complaints ENT: no complaints Respiratory: no complaints Cardiovascular: no complaints Gastrointestinal: decreased appetite, nausea, pain (Epigastric), vomiting Genitourinary: no complaints Musculoskeletal: no complaints Skin: no complaints Neurologic: no complaints Endocrine: no complaints Lymphatic: no complaints Psychological: nl mood/affect, no complaints Immunologic: no complaints Past Medical History Gastric lymphoma and diabetes Medical History: other (Gastric lymphoma) Past Surgical History Past Surgical Hx: endoscopy, other (Laparoscopy September 12, 2016) Family History Significant Family History: cancer (cousin with non-Hodgkin's lymphoma) Social History Alcohol Use: occasionally Smoking Status: Never smoker Drug Use: none Exam/Review of Systems Vital Signs Vitals Vital Signs Date Time Temp Pulse Resp B/P Pulse Ox O2 Delivery O2 Flow Rate FiO2 10/24/16 08:00 98.3 62 18 167/74 97 Room Air 10/23/16 14:13 5 Intake and Output 10/23/16 10/23/16 10/24/16 15:00 23:00 07:00 Intake Total 370 ml 720 ml 1230 ml Output Total 200 ml Balance 370 ml 520 ml 1230 ml Exam Constitutional: alert, oriented Psych: no complaints Head: normocephalic Eyes: nl conjunctiva Neck: non-tender, supple Respiratory: clear to auscultation Cardiovascular: regular rate and rhythm Gastrointestinal: non-tender, soft Musculoskeletal: nl extremities to inspection Lymph: nl lymph nodes Results Result Diagram: 10/24/16 0520 10/24/16 0520 Results 24 hrs Laboratory Tests Test 10/23/16 16:30 10/23/16 20:42 10/24/16 05:20 10/24/16 07:45 Bedside Glucose 78 125 87 Anion Gap 11 Basophils # 0.0 Basophils % 0.6 Blood Morphology Comment Blood Urea Nitrogen 9 Calcium Level 8.3 L Carbon Dioxide Level 25 Chloride Level 103 Creatinine 0.65 Eosinophils # 0.2 Eosinophils % 4.6 Glucose Level 75 Hematocrit 36.5 L Hemoglobin 12.5 L Lymphocytes # 1.2 Lymphocytes % 23.2 Mean Corpuscular Hemoglobin 29.8 Mean Corpuscular Hemoglobin Concent 34.4 Mean Corpuscular Volume 86.7 Mean Platelet Volume 6.9 L Monocytes # 0.7 Monocytes % 14.6 H Neutrophils # 2.9 Neutrophils % 57.0 Nucleated Red Blood Cells # 0.0 Nucleated Red Blood Cells % 0.0 Platelet Count 342 Potassium Level 3.9 Red Blood Count 4.21 L Red Cell Distribution Width 13.7 Sodium Level 135 White Blood Count 5.1 Test 10/24/16 12:20 Bedside Glucose 98 Medications Medications Current Medications Zolpidem Tartrate (Ambien) 5 mg HS PRN PO INSOMNIA Last administered on at 22:40; Admin Dose 5 MG; Start 10/22/16 at 22:30 Docusate Sodium (Colace) 100 mg BID PO Last administered on 10/24/16at 08:00; Admin Dose 100 MG; Start 10/22/16 at 23:30 Ondansetron HCl (Zofran Inj) 4 mg Q6H PRN IV NAUSEA AND/OR VOMITING Last administered on 10/23/16at 14:42; Admin Dose 4 MG; Start 10/22/16 at 23:30 Acetaminophen (Tylenol Tab) 650 mg Q6H PRN PO PAIN AND OR ELEVATED TEMP; Start 10/22/16 at 23:30 Pantoprazole (Protonix Iv) 40 mg DAILY@06 IV Last administered on 10/24/16at 05 :33; Admin Dose 40 MG; Start 10/23/16 at 06:00 Diagnostic Test (Pha) 1 ea 1 ea 02 XX ; Start 10/23/16 at 02:00 Sodium Chloride (NS) 1,000 ml @ 80 mls/hr [id number] IV Last administered on at 01:15; Admin Dose 80 MLS/HR; Start 10/22/16 at 23:30 Miscellaneous Information 1 ea NOTE XX ; Start 10/22/16 at 23:30 Glucose (Glutose) 15 gm Q15M PRN PO DECREASED GLUCOSE; Start 10/22/16 at 23:30 Glucose (Glutose) 22.5 gm Q15M PRN PO DECREASED GLUCOSE; Start 10/22/16 at 23: 30 Dextrose (D50w Syringe) 25 ml Q15M PRN IV DECREASED GLUCOSE; Start 10/22/16 at 23:30 Dextrose (D50w Syringe) 50 ml Q15M PRN IV DECREASED GLUCOSE; Start 10/22/16 at 23:30 Glucagon (Glucagen) 1 mg Q15M PRN IM DECREASED GLUCOSE; Start 10/22/16 at 23: 30 Glucose (Glutose) 15 gm Q15M PRN BUCCAL DECREASED GLUCOSE; Start 10/22/16 at 23:30 Metoclopramide HCl (Reglan) 10 mg Q6 IV Last administered on 10/24/16at 12:22; Admin Dose 10 MG; Start 10/23/16 at 14:30 NEY SORTO MD Oct 24, 2016 12:52
--- NOTE | 2016-10-24 16:34 | CONS ---
Date/Time of Note Date/Time of Note DATE: 10/24/16 TIME: 16:34 Assessment/Plan Assessment/Plan Additional Assessment/Plan Persistent nausea and vomiting/gastric outlet obstruction * Known gastric mass, diagnosed lymphoma in [place] * Unresectable large distal gastric proximal intestinal mass with significant lymphadenopathy * There would be no benefit to stenting the gastric outlet obstruction as the patient has a patent gastrojejunostomy which is much wider than what a stent may accomplish without significant difficulties that it may entail. Oncology consultation is pending. The possibility of chemotherapy and radiation therapy if this turns out to be a lymphoma should provide relatively rapid and beneficial response. * History of diabetes mellitus Plan: * Advance diet as tolerated * Review pathology * Add Reglan 10mg every 6 hrs * Further recommendations will depend on our findings. Patient seen in collaboration with Dr. Rojas Consultation Date/Type/Reason Admit Date/Time Oct 22, 2016 at 19:46 Initial Consult Date 10/24/16 Type of Consultation: Gastroenterology 24 HR Interval Summary Free Text/Dictation Tolerating soft diet with little appetite CT chest and bone biopsy in process EGD biopsies in process Denies nausea and vomiting Abdominal pain and Exam/Review of Systems Vital Signs Vitals Vital Signs Date Time Temp Pulse Resp B/P Pulse Ox O2 Delivery O2 Flow Rate FiO2 10/24/16 08:00 98.3 62 18 167/74 97 Room Air 10/23/16 14:13 5 Intake and Output 10/23/16 10/23/16 10/24/16 15:00 23:00 07:00 Intake Total 370 ml 720 ml 1230 ml Output Total 200 ml Balance 370 ml 520 ml 1230 ml Exam Constitutional: alert, oriented, other (Thin) Psych: nl mood/affect Eyes: EOMI Respiratory: normal air movement Cardiovascular: regular rate and rhythm Gastrointestinal: non-tender, soft Neurological: RETAIL INTERIOR DESIGNER II-XII intact Results Result Diagram: 10/24/16 0520 10/24/16 0520 Results 24 hrs Laboratory Tests Test 10/23/16 20:42 10/24/16 05:20 10/24/16 07:45 10/24/16 12:20 Bedside Glucose 125 87 98 Anion Gap 11 Basophils # 0.0 Basophils % 0.6 Blood Morphology Comment Blood Urea Nitrogen 9 Calcium Level 8.3 L Carbon Dioxide Level 25 Chloride Level 103 Creatinine 0.65 Eosinophils # 0.2 Eosinophils % 4.6 Glucose Level 75 Hematocrit 36.5 L Hemoglobin 12.5 L Lymphocytes # 1.2 Lymphocytes % 23.2 Mean Corpuscular Hemoglobin 29.8 Mean Corpuscular Hemoglobin Concent 34.4 Mean Corpuscular Volume 86.7 Mean Platelet Volume 6.9 L Monocytes # 0.7 Monocytes % 14.6 H Neutrophils # 2.9 Neutrophils % 57.0 Nucleated Red Blood Cells # 0.0 Nucleated Red Blood Cells % 0.0 Platelet Count 342 Potassium Level 3.9 Red Blood Count 4.21 L Red Cell Distribution Width 13.7 Sodium Level 135 White Blood Count 5.1 Medications Medications Current Medications Zolpidem Tartrate (Ambien) 5 mg HS PRN PO INSOMNIA Last administered on at 22:40; Admin Dose 5 MG; Start 10/22/16 at 22:30 Docusate Sodium (Colace) 100 mg BID PO Last administered on 10/24/16at 08:00; Admin Dose 100 MG; Start 10/22/16 at 23:30 Ondansetron HCl (Zofran Inj) 4 mg Q6H PRN IV NAUSEA AND/OR VOMITING Last administered on 10/23/16at 14:42; Admin Dose 4 MG; Start 10/22/16 at 23:30 Acetaminophen (Tylenol Tab) 650 mg Q6H PRN PO PAIN AND OR ELEVATED TEMP; Start 10/22/16 at 23:30 Pantoprazole (Protonix Iv) 40 mg DAILY@06 IV Last administered on 10/24/16at 05 :33; Admin Dose 40 MG; Start 10/23/16 at 06:00 Diagnostic Test (Pha) 1 ea 1 ea 02 XX ; Start 10/23/16 at 02:00 Sodium Chloride (NS) 1,000 ml @ 80 mls/hr [id number] IV Last administered on at 15:17; Admin Dose 80 MLS/HR; Start 10/22/16 at 23:30 Miscellaneous Information 1 ea NOTE XX ; Start 10/22/16 at 23:30 Glucose (Glutose) 15 gm Q15M PRN PO DECREASED GLUCOSE; Start 10/22/16 at 23:30 Glucose (Glutose) 22.5 gm Q15M PRN PO DECREASED GLUCOSE; Start 10/22/16 at 23: 30 Dextrose (D50w Syringe) 25 ml Q15M PRN IV DECREASED GLUCOSE; Start 10/22/16 at 23:30 Dextrose (D50w Syringe) 50 ml Q15M PRN IV DECREASED GLUCOSE; Start 10/22/16 at 23:30 Glucagon (Glucagen) 1 mg Q15M PRN IM DECREASED GLUCOSE; Start 10/22/16 at 23: 30 Glucose (Glutose) 15 gm Q15M PRN BUCCAL DECREASED GLUCOSE; Start 10/22/16 at 23:30 Metoclopramide HCl (Reglan) 10 mg Q6 IV Last administered on 10/24/16at 12:22; Admin Dose 10 MG; Start 10/23/16 at 14:30 [place] Oct 24, 2016 16:34
[2016-10-24 20:00] VITALS: BP 115/59; PULSE 85; RESP 18
--- NOTE | 2016-10-24 21:37 | PN ---
Date/Time of Note Date/Time of Note DATE: 10/24/16 TIME: 21:25 Assessment/Plan VTE Prophylaxis VTE Prophylaxis Intervention: SCD's Lines/Catheters IV Catheter Type (from Nrs): Peripheral IV Assessment/Plan Assessment/Plan 1. Large partially obstructing antral gastric mass with extensive ulceration with extensive lymphadenopathy: pt known diagnoses of lymphoma in [place]. Tumor unresectable - s/p EGD with multiple biopsies on 10/23. Will await final pathology result. Stenting felt unnecessary as pt with patent gastrojejunostomy - oncology now on board with plan for portacath, outpt PET and eventually chemo - Will f/u staging CT chest 2. Intractable N/V: 2/2 above: per pt and family, symptom completely resolved with current anti-emetics. Will continue 3. Diabetes: A1C 6.8: diet controlled. PRN insulin while in house DVT/GI Ppx: SCDs and PPI DISP: pending result of pathology, placement of portacath, staging CT chest Subjective 24 Hr Interval Summary Free Text/Dictation feeling better. Reported N/V almost completely resolved Exam/Review of Systems Vital Signs Vitals Vital Signs Date Time Temp Pulse Resp B/P Pulse Ox O2 Delivery O2 Flow Rate FiO2 10/24/16 08:00 98.3 62 18 167/74 97 Room Air 10/23/16 14:13 5 Intake and Output 10/23/16 10/23/16 10/24/16 15:00 23:00 07:00 Intake Total 370 ml 720 ml 1230 ml Output Total 200 ml Balance 370 ml 520 ml 1230 ml Exam Constitutional: alert, oriented Head: atraumatic, normocephalic Neck: non-tender, supple Respiratory: clear to auscultation, normal air movement Cardiovascular: nl pulses, regular rate and rhythm Gastrointestinal: other (minimal tenderness to deep palpation in RLQ), soft Extremities: normal pulses Results Result Diagram: 10/24/16 0520 10/24/16 0520 Results 24 hrs Laboratory Tests Test 10/24/16 05:20 10/24/16 07:45 10/24/16 12:20 10/24/16 16:58 Anion Gap 11 Basophils # 0.0 Basophils % 0.6 Blood Morphology Comment Blood Urea Nitrogen 9 Calcium Level 8.3 L Carbon Dioxide Level 25 Chloride Level 103 Creatinine 0.65 Eosinophils # 0.2 Eosinophils % 4.6 Glucose Level 75 Hematocrit 36.5 L Hemoglobin 12.5 L Lymphocytes # 1.2 Lymphocytes % 23.2 Mean Corpuscular Hemoglobin 29.8 Mean Corpuscular Hemoglobin Concent 34.4 Mean Corpuscular Volume 86.7 Mean Platelet Volume 6.9 L Monocytes # 0.7 Monocytes % 14.6 H Neutrophils # 2.9 Neutrophils % 57.0 Nucleated Red Blood Cells # 0.0 Nucleated Red Blood Cells % 0.0 Platelet Count 342 Potassium Level 3.9 Red Blood Count 4.21 L Red Cell Distribution Width 13.7 Sodium Level 135 White Blood Count 5.1 Bedside Glucose 87 98 100 Test 10/24/16 21:15 Bedside Glucose 108 Medications Medications Current Medications Zolpidem Tartrate (Ambien) 5 mg HS PRN PO INSOMNIA Last administered on at 22:40; Admin Dose 5 MG; Start 10/22/16 at 22:30 Docusate Sodium (Colace) 100 mg BID PO Last administered on 10/24/16at 21:17; Admin Dose 100 MG; Start 10/22/16 at 23:30 Ondansetron HCl (Zofran Inj) 4 mg Q6H PRN IV NAUSEA AND/OR VOMITING Last administered on 10/23/16at 14:42; Admin Dose 4 MG; Start 10/22/16 at 23:30 Acetaminophen (Tylenol Tab) 650 mg Q6H PRN PO PAIN AND OR ELEVATED TEMP; Start 10/22/16 at 23:30 Pantoprazole (Protonix Iv) 40 mg DAILY@06 IV Last administered on 10/24/16at 05 :33; Admin Dose 40 MG; Start 10/23/16 at 06:00 Diagnostic Test (Pha) 1 ea 1 ea 02 XX ; Start 10/23/16 at 02:00 Sodium Chloride (NS) 1,000 ml @ 80 mls/hr [id number] IV Last administered on at 15:17; Admin Dose 80 MLS/HR; Start 10/22/16 at 23:30 Miscellaneous Information 1 ea NOTE XX ; Start 10/22/16 at 23:30 Glucose (Glutose) 15 gm Q15M PRN PO DECREASED GLUCOSE; Start 10/22/16 at 23:30 Glucose (Glutose) 22.5 gm Q15M PRN PO DECREASED GLUCOSE; Start 10/22/16 at 23: 30 Dextrose (D50w Syringe) 25 ml Q15M PRN IV DECREASED GLUCOSE; Start 10/22/16 at 23:30 Dextrose (D50w Syringe) 50 ml Q15M PRN IV DECREASED GLUCOSE; Start 10/22/16 at 23:30 Glucagon (Glucagen) 1 mg Q15M PRN IM DECREASED GLUCOSE; Start 10/22/16 at 23: 30 Glucose (Glutose) 15 gm Q15M PRN BUCCAL DECREASED GLUCOSE; Start 10/22/16 at 23:30 Metoclopramide HCl (Reglan) 10 mg Q6 IV Last administered on 10/24/16at 18:04; Admin Dose 10 MG; Start 10/23/16 at 14:30 NICK GRAHAM MD Oct 24, 2016 21:36
[2016-10-24] MEDS: ZOLPIDEM 5 MG TAB PO PRN (22:35)
[2016-10-25] MEDS: METOCLOPRAMIDE 10 MG INJ IV SCH ×5 (00:47→23:43)
[2016-10-25] MEDS: SOD CHLORIDE 0.9% 1,000 ML IV SCH ×3 (01:30→18:04)
[2016-10-25] MEDS: ACCUCHECK XX SCH (02:00)
[2016-10-25] MEDS: PANTOPRAZOLE 40 MG INJ IV SCH (05:32)
[2016-10-25 06:20] LABS: HAAIG REFLEX REFLEX FILED
[2016-10-25 06:33] LABS: BASOPHILS % 0.6 % (0.0-2.0); EOSINOPHILS # 0.2 10^3/ul (0.0-0.5); EOSINOPHILS % 3.2 % (0.0-7.0); HEMATOCRIT 37.1 % (42.0-52.0); HEMOGLOBIN 12.7 g/dl (14.0-18.0); LYMPHOCYTES # 1.2 10^3/ul (0.8-2.9); LYMPHOCYTES % 23.5 % (15.0-51.0); MEAN CORPUSCULAR HEMOGLOBIN 29.8 pg (29.0-33.0); MEAN CORPUSCULAR HGB CONC 34.3 g/dl (32.0-37.0); MEAN CORPUSCULAR VOLUME 86.8 fl (82.0-101.0); MEAN PLATELET VOLUME 6.7 fl (7.4-10.4); MONOCYTE # 0.6 10^3/ul (0.3-0.9); MONOCYTES % 12.4 % (0.0-11.0); NEUTROPHIL # 2.9 10^3/ul (1.6-7.5); NEUTROPHILS % 60.3 % (39.0-77.0); PLATELET COUNT 333 10^3/UL (140-440); RED BLOOD COUNT 4.28 10^6/ul (4.70-6.10); RED CELL DISTRIBUTION WIDTH 13.8 % (11.5-14.5); UNCORRECTED WBC 4.9 10^3/ul (4.8-10.8); WHITE BLOOD COUNT 4.9 10^3/ul (4.8-10.8)
[2016-10-25 06:37] LABS: INR 1.06; PROTIME 13.8 Sec (12.2-14.2); PT RATIO 1.1
[2016-10-25 06:43] LABS: CONDITION 1
[2016-10-25 07:01] LABS: LACTATE DEHYDROGENASE 444 IU/L (313-618)
[2016-10-25 07:02] LABS: URIC ACID 3.5 mg/dl (3.1-7.9)
[2016-10-25 07:08] LABS: POTASSIUM 3.9 mmol/L (3.5-5.1)
[2016-10-25 07:10] LABS: CREATININE 0.51 mg/dl (0.61-1.24)
[2016-10-25 07:11] LABS: CALCIUM 8.2 mg/dl (8.4-10.2)
[2016-10-25] MEDS: INSULIN ASPART [NOVOLOG] 3 ML PEN SC SCH ×4 (07:38→20:31)
[2016-10-25 07:43] LABS: HEPATITIS B CORE ANTIBODY NEGATIVE (NEGATIVE)
[2016-10-25 08:09] VITALS: BP 120/57; PULSE 62; RESP 20
--- NOTE | 2016-10-25 08:24 | CONS ---
Date/Time of Note Date/Time of Note DATE: 10/25/16 TIME: 08:17 Assessment/Plan Assessment/Plan Additional Assessment/Plan Persistent nausea and vomiting/gastric outlet obstruction * Known gastric mass, diagnosed lymphoma in [place] * Unresectable large distal gastric proximal intestinal mass with significant lymphadenopathy * There would be no benefit to stenting the gastric outlet obstruction as the patient has a patent gastrojejunostomy which is much wider than what a stent may accomplish without significant difficulties that it may entail. Oncology consultation is pending. The possibility of chemotherapy and radiation therapy if this turns out to be a lymphoma should provide relatively rapid and beneficial response. * History of diabetes mellitus Plan: * Advance diet as tolerated * Review pathology * Reglan 10mg every 6 hrs * Further recommendations will depend on our findings. * Patient seen in collaboration with Dr. Rojas Consultation Date/Type/Reason Admit Date/Time Oct 22, 2016 at 19:46 Initial Consult Date 10/24/16 Type of Consultation: Gastroenterology 24 HR Interval Summary Free Text/Dictation Patient to have cath and CT chest Pathology in process No reports from patient of nausea or vomiting Exam/Review of Systems Vital Signs Vitals Vital Signs Date Time Temp Pulse Resp B/P Pulse Ox O2 Delivery O2 Flow Rate FiO2 10/25/16 08:09 98.2 62 20 120/57 97 Room Air 10/23/16 14:13 5 Intake and Output 10/24/16 10/24/16 10/25/16 15:00 23:00 07:00 Intake Total 2130 ml 1700 ml Balance 2130 ml 1700 ml Exam Constitutional: alert, oriented, other (Thin) Psych: nl mood/affect Eyes: EOMI Respiratory: normal air movement Cardiovascular: regular rate and rhythm Gastrointestinal: non-tender, soft Neurological: [employer] II-XII intact Results Result Diagram: 10/25/16 0540 10/25/16 0540 Results 24 hrs Laboratory Tests Test 10/24/16 12:20 10/24/16 16:58 10/24/16 21:15 10/25/16 05:40 Bedside Glucose 98 100 108 Activated Partial Thromboplast Time 32.0 Anion Gap 13 Basophils # 0.0 Basophils % 0.6 Blood Morphology Comment Blood Urea Nitrogen 8 Calcium Level 8.2 L Carbon Dioxide Level 25 Chloride Level 102 Creatinine 0.51 L Eosinophils # 0.2 Eosinophils % 3.2 Glucose Level 80 HIV (1&2) Antibody NEGATIVE Hematocrit 37.1 L Hemoglobin 12.7 L Hepatitis B Core Total Antibody NEGATIVE Hepatitis B Surface Antigen NEGATIVE Hepatitis C Antibody NEGATIVE INR International Normalized Ratio 1.06 Lactate Dehydrogenase 444 Lymphocytes # 1.2 Lymphocytes % 23.5 Mean Corpuscular Hemoglobin 29.8 Mean Corpuscular Hemoglobin Concent 34.3 Mean Corpuscular Volume 86.8 Mean Platelet Volume 6.7 L Monocytes # 0.6 Monocytes % 12.4 H Neutrophils # 2.9 Neutrophils % 60.3 Nucleated Red Blood Cells # 0.0 Nucleated Red Blood Cells % 0.0 Platelet Count 333 Potassium Level 3.9 Prothrombin Time 13.8 Prothrombin Time Ratio 1.1 Red Blood Count 4.28 L Red Cell Distribution Width 13.8 Sodium Level 136 Uric Acid 3.5 White Blood Count 4.9 Test 10/25/16 07:37 Bedside Glucose 97 Medications Medications Current Medications Zolpidem Tartrate (Ambien) 5 mg HS PRN PO INSOMNIA Last administered on at 22:35; Admin Dose 5 MG; Start 10/22/16 at 22:30 Docusate Sodium (Colace) 100 mg BID PO Last administered on 10/24/16at 21:17; Admin Dose 100 MG; Start 10/22/16 at 23:30 Ondansetron HCl (Zofran Inj) 4 mg Q6H PRN IV NAUSEA AND/OR VOMITING Last administered on 10/23/16at 14:42; Admin Dose 4 MG; Start 10/22/16 at 23:30 Acetaminophen (Tylenol Tab) 650 mg Q6H PRN PO PAIN AND OR ELEVATED TEMP; Start 10/22/16 at 23:30 Pantoprazole (Protonix Iv) 40 mg DAILY@06 IV Last administered on 10/25/16at 05 :32; Admin Dose 40 MG; Start 10/23/16 at 06:00 Diagnostic Test (Pha) 1 ea 1 ea 02 XX ; Start 10/23/16 at 02:00 Sodium Chloride (NS) 1,000 ml @ 80 mls/hr [id number] IV Last administered on at 04:23; Admin Dose 80 MLS/HR; Start 10/22/16 at 23:30 Miscellaneous Information 1 ea NOTE XX ; Start 10/22/16 at 23:30 Glucose (Glutose) 15 gm Q15M PRN PO DECREASED GLUCOSE; Start 10/22/16 at 23:30 Glucose (Glutose) 22.5 gm Q15M PRN PO DECREASED GLUCOSE; Start 10/22/16 at 23: 30 Dextrose (D50w Syringe) 25 ml Q15M PRN IV DECREASED GLUCOSE; Start 10/22/16 at 23:30 Dextrose (D50w Syringe) 50 ml Q15M PRN IV DECREASED GLUCOSE; Start 10/22/16 at 23:30 Glucagon (Glucagen) 1 mg Q15M PRN IM DECREASED GLUCOSE; Start 10/22/16 at 23: 30 Glucose (Glutose) 15 gm Q15M PRN BUCCAL DECREASED GLUCOSE; Start 10/22/16 at 23:30 Metoclopramide HCl (Reglan) 10 mg Q6 IV Last administered on 10/25/16at 05:32; Admin Dose 10 MG; Start 10/23/16 at 14:30 [place] Oct 25, 2016 08:24
[2016-10-25] MEDS: DOCUSATE SODIUM 100 MG CAP PO SCH ×2 (08:34→20:31)
[2016-10-25] MEDS ORDERED: POLYMYXIN/BACITRACIN 1L IRRIG IRR SCH (11:00)
[2016-10-25] MEDS ORDERED: MIDAZOLAM 1 MG/ML 2 ML INJ ONE (11:16)
[2016-10-25] MEDS ORDERED: LIDOCAINE 1%/EPI (MDV) 20 ML INJ ONE (11:16)
[2016-10-25] MEDS ORDERED: LIDOCAINE 1% (MDV) 20 ML INJ ONE (11:16)
[2016-10-25] MEDS ORDERED: FENTAnyl 50 MCG/ML VIAL ONE (11:16)
[2016-10-25] MEDS ORDERED: IODIXANOL LOCM 50 ML BTL ONE (11:20)
[2016-10-25] MEDS ORDERED: SOD CHLORIDE 0.9% 500 ML ONE (11:20)
--- NOTE | 2016-10-25 11:35 | PN ---
Date/Time of Note Date/Time of Note DATE: 10/25/16 TIME: 11:33 Assessment/Plan VTE Prophylaxis VTE Prophylaxis Intervention: SCD's Lines/Catheters IV Catheter Type (from Nrs): Peripheral IV Assessment/Plan Assessment/Plan 1. Large partially obstructing antral gastric mass with extensive ulceration with extensive lymphadenopathy: pt known diagnoses of lymphoma in [place]. Tumor unresectable - s/p EGD with multiple biopsies on 10/23. Will await final pathology result. Stenting felt unnecessary as pt with patent gastrojejunostomy - oncology now on board with plan for portacath, outpt PET and eventually chemo - Will f/u staging CT chest 2. Intractable N/V: 2/2 above: per pt and family, symptom completely resolved with current anti-emetics. Will continue 3. Diabetes: A1C 6.8: diet controlled. PRN insulin while in house DVT/GI Ppx: SCDs and PPI DISP: pending result of pathology from EGD, placement of portacath, staging CT chest and Bone Marrow Biopsy Subjective 24 Hr Interval Summary Free Text/Dictation lying in bed, in acute distress. he said he is feeling well. Denied N/V or pain Exam/Review of Systems Vital Signs Vitals Vital Signs Date Time Temp Pulse Resp B/P Pulse Ox O2 Delivery O2 Flow Rate FiO2 10/25/16 08:09 98.2 62 20 120/57 97 Room Air 10/23/16 14:13 5 Intake and Output 10/24/16 10/24/16 10/25/16 15:00 23:00 07:00 Intake Total 2130 ml 1700 ml Balance 2130 ml 1700 ml Exam Constitutional: alert, oriented Head: atraumatic, normocephalic Neck: non-tender, supple Respiratory: clear to auscultation, normal air movement Cardiovascular: nl pulses, regular rate and rhythm Gastrointestinal: other (minimal tenderness to deep palpation in RLQ), soft Extremities: normal pulses Results Result Diagram: 10/25/16 0540 10/25/16 0540 Results 24 hrs Laboratory Tests Test 10/24/16 12:20 10/24/16 16:58 10/24/16 21:15 10/25/16 05:40 Bedside Glucose 98 100 108 Activated Partial Thromboplast Time 32.0 Anion Gap 13 Basophils # 0.0 Basophils % 0.6 Blood Morphology Comment Blood Urea Nitrogen 8 Calcium Level 8.2 L Carbon Dioxide Level 25 Chloride Level 102 Creatinine 0.51 L Eosinophils # 0.2 Eosinophils % 3.2 Glucose Level 80 HIV (1&2) Antibody NEGATIVE Hematocrit 37.1 L Hemoglobin 12.7 L Hepatitis B Core Total Antibody NEGATIVE Hepatitis B Surface Antigen NEGATIVE Hepatitis C Antibody NEGATIVE INR International Normalized Ratio 1.06 Lactate Dehydrogenase 444 Lymphocytes # 1.2 Lymphocytes % 23.5 Mean Corpuscular Hemoglobin 29.8 Mean Corpuscular Hemoglobin Concent 34.3 Mean Corpuscular Volume 86.8 Mean Platelet Volume 6.7 L Monocytes # 0.6 Monocytes % 12.4 H Neutrophils # 2.9 Neutrophils % 60.3 Nucleated Red Blood Cells # 0.0 Nucleated Red Blood Cells % 0.0 Platelet Count 333 Potassium Level 3.9 Prothrombin Time 13.8 Prothrombin Time Ratio 1.1 Red Blood Count 4.28 L Red Cell Distribution Width 13.8 Sodium Level 136 Uric Acid 3.5 White Blood Count 4.9 Test 10/25/16 07:37 Bedside Glucose 97 Medications Medications Current Medications Zolpidem Tartrate (Ambien) 5 mg HS PRN PO INSOMNIA Last administered on at 22:35; Admin Dose 5 MG; Start 10/22/16 at 22:30 Docusate Sodium (Colace) 100 mg BID PO Last administered on 10/24/16at 21:17; Admin Dose 100 MG; Start 10/22/16 at 23:30 Ondansetron HCl (Zofran Inj) 4 mg Q6H PRN IV NAUSEA AND/OR VOMITING Last administered on 10/23/16at 14:42; Admin Dose 4 MG; Start 10/22/16 at 23:30 Acetaminophen (Tylenol Tab) 650 mg Q6H PRN PO PAIN AND OR ELEVATED TEMP; Start 10/22/16 at 23:30 Pantoprazole (Protonix Iv) 40 mg DAILY@06 IV Last administered on 10/25/16at 05 :32; Admin Dose 40 MG; Start 10/23/16 at 06:00 Diagnostic Test (Pha) 1 ea 1 ea 02 XX ; Start 10/23/16 at 02:00 Sodium Chloride (NS) 1,000 ml @ 80 mls/hr [id number] IV Last administered on at 04:23; Admin Dose 80 MLS/HR; Start 10/22/16 at 23:30 Miscellaneous Information 1 ea NOTE XX ; Start 10/22/16 at 23:30 Glucose (Glutose) 15 gm Q15M PRN PO DECREASED GLUCOSE; Start 10/22/16 at 23:30 Glucose (Glutose) 22.5 gm Q15M PRN PO DECREASED GLUCOSE; Start 10/22/16 at 23: 30 Dextrose (D50w Syringe) 25 ml Q15M PRN IV DECREASED GLUCOSE; Start 10/22/16 at 23:30 Dextrose (D50w Syringe) 50 ml Q15M PRN IV DECREASED GLUCOSE; Start 10/22/16 at 23:30 Glucagon (Glucagen) 1 mg Q15M PRN IM DECREASED GLUCOSE; Start 10/22/16 at 23: 30 Glucose (Glutose) 15 gm Q15M PRN BUCCAL DECREASED GLUCOSE; Start 10/22/16 at 23:30 Metoclopramide HCl (Reglan) 10 mg Q6 IV Last administered on 10/25/16at 05:32; Admin Dose 10 MG; Start 10/23/16 at 14:30 NICK GRAHAM MD Oct 25, 2016 11:35
[2016-10-25] MEDS ORDERED: HEPARIN 1000 UNITS/ML 10 ML INJ ONE (11:42)
[2016-10-25] MEDS ORDERED: IOHEXOL 300MG/ML 150 ML BTL ONE (12:23)
[2016-10-25] MEDS ORDERED: SOD CHLORIDE 0.9% 100 ML ONE (12:23)
--- NOTE | 2016-10-25 12:35 | RADRPT ---
PROCEDURE: FLUOROSCOPIC AND ULTRASONOGRAPHIC-GUIDED PLACEMENT OF RIGHT CHEST PORT. CLINICAL INDICATION: History of gastric lymphoma. Venous access for chemotherapy. TECHNIQUE: INTRAPROCEDURE MEDICATIONS: PB antibiotic solution 40 cc applied topically. 1 gram Ancef intravenous ly, intra-op. IV Versed and Fentanyl per protocol. Informed consent was obtained. The procedure, risks, benefits, complications and alternatives were explained to the patient. Risks including bleeding, infection, and pneumothorax were explained. The patient understood and was willing to proceed. A procedural pause was performed. The patient's name, date of , and procedure to be performed w ere verified. The central line was inserted with all elements of maximal sterile barrier technique. All of the fol lowing were used: head covering, facial mask, sterile gown, sterile gloves, a large sterile sheet, h and hygiene, and 2% chlorhexidine for cutaneous antisepsis. The right neck and anterior/superior chest wall were prepped and draped in usual sterile fashion. Limited sonography of the right neck was then performed. Noted is a patent right internal jugular ve in. Following the local injection of 1% lidocaine, the right internal jugular vein was punctured under s onographic guidance with a 20-gauge needle through which a 0.018 inch floppy tip guidewire was advan tho into the superior vena cava with fluoroscopic guidance. The tract was dilated to 5 [place]i and the wire was then replaced with a 0.035 in Amplatz guidewire. Serial dilatation was then performed and a 7 [place]i peel away sheath was introduced. A site just inferior to the clavicle in the superior anterior right chest wall was localized. One pe rcent lidocaine was used as local anesthesia. A transverse 2.5 cm incision was made utilizing a 15 b lade scalpel. Utilizing blunt dissection a subcutaneous pocket was created inferior to the incision. The cavity was flushed with approximately 40 cc of PB antibiotic solution. The catheter was tunneled underneath the skin from the newly created pocket to the puncture site in the neck. The central line catheter was pulled through the tract. The catheter was then advanced thr ough the sheath until the tip was positioned in the right atrium. The peel-away sheath was removed. The catheter was flushed and clamped. The 6.6 [place]i catheter was then connected to the Angiodynamics power port. The port was then placed into the pocket. Prior to closing the instrument and sponge count was verified and was correct. The subcutaneous tissue was closed with 3-0 Vicryl interrupted suture. The skin at the site of the pock et and in the neck was closed with 4-0 Vicryl suture in a running subcuticular technique. The port w as flushed with 1500 units of heparin in 1.5 cc utilizing a Wallis needle. The needle was removed. A dressing was applied. The patient tolerated procedure well. COMPARISON: None. FINDINGS: Ultrasound images were recorded and stored in the patient's medical record. Final radiographic images demonstrate the tip of the catheter in the upper right atrium. A total of 0.2 minutes of fluoroscopy time was used. The ultrasound images demonstrate the needle entering th e internal jugular vein. IMPRESSION: 1. Successful ultrasonographic and fluoroscopic guided placement of right chest power port. RPTAT: QQ .Nicolas Erwin MD, Date Time Electronically viewed and signed by .Nicolas Erwin MD, MD on 10/25/2016 12:35 .R/
--- NOTE | 2016-10-25 12:42 | CONS ---
Date/Time of Note Date/Time of Note DATE: 10/25/16 TIME: 12:41 Assessment/Plan Assessment/Plan Chief Complaint/Hosp Course The patient is a 61 year old male with recent diagnosis of gastric lymphoma in [place], with nausea and vomiting due to gastric outlet obstruction - The patient underwent EGD with biopsy 10/23/16 that demonstrated a large obstructing antral gastric mass, clearly malignant with extensive ulceration. Multiple biopsies were obtained.Per Dr. Rojas, there would be no benefit to stenting the gastric outlet obstruction as the patient has a patent gastrojejunostomy which is much wider than what a stent may accomplish. - CT A/P with contrast 10/22/16 demonstrated diffuse wall thickening of the gastric antrum and possibly the first portion of the duodenum suspicious for malignancy. There is marked narrowing of the region of the pylorus/ duodenal bulb suggesting impending gastric outlet obstruction. Adenopathy with enlarged lymph nodes in the gastrohepatic ligament, periportal, peripancreatic, celiac, portocaval, aortocaval, left periaortic regions consistent with metastases with an approximate 8.3 cm maximum transverse, 9.7 cm maximum anterior-posterior dimension conglomerate siddharth mass. Nonspecific nodular densities at lung bases. These could represent metastases. Small amount of ascites - CT chest 10/25/16 showed stable bulky retroperitoneal and gastrohepatic lymphadenopathy as demonstrated on prior CT scan consistent with lymphoma. No intrathoracic, supraclavicular, or axillary lymphadenopathy. - Will need outpatient PET/CT scan - Pending bone marrow biopsy for staging, to be performed on 10/29/15 by IR. If BMBx positive, will order baseline LP for staging. - TTE 10/25/16 shows Ef 55-60% - Follow-up final path from EGD yesterday prior to initiation of chemotherapy. 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 Ki 67 high at 95%. BCL2 and BCL6 positive, FISH pending for BCL2, BCL6 and Myc. Given double expression of BCL2 and BCL6, will likely start with R-EPOCH chemotherapy until FISH results return. - Once pharmacy has received chemo, will administer R-EPOCH (5 day infusional chemotherapy). Chemo orders written. Patient to be transferred to . Rituximab 375 mg IV D1 Etoposide 50 mg/m2 IV over 24 hours D1-4 Doxorubicin 10 mg/m2 IV over 24 hours D1-4 Vincristine 0.4 mg/m2 IV over 24 hours D1-4 Cyclophosphamide 750 mg/m2 IV over 15 minutes D5 Prednisone 60 mg/m2 PO D1-5 - Patient will need neupogen 300 mcg starting D6 - s/p port placement 10/25/16 - Check LDH, uric acid daily to monitor for tumor lysis, so far ok with LDH 444 and uric acid 3.5, will start allopurinol with chemotherapy as tumor lysis prophylaxis - Pending TTE read prior to anthracyclines; HIV, hepatitis panel negative - Problems: Consultation Date/Type/Reason Admit Date/Time Oct 22, 2016 at 19:46 Initial Consult Date 10/24/16 Type of Consultation: Hematology/Oncology 24 HR Interval Summary Free Text/Dictation The patient has no complaints, he is feeling well and eating well. Exam/Review of Systems Vital Signs Vitals Vital Signs Date Time Temp Pulse Resp B/P Pulse Ox O2 Delivery O2 Flow Rate FiO2 10/25/16 08:09 98.2 62 20 120/57 97 Room Air 10/23/16 14:13 5 Intake and Output 10/24/16 10/24/16 10/25/16 15:00 23:00 07:00 Intake Total 2130 ml 1700 ml Balance 2130 ml 1700 ml Exam Constitutional: alert, oriented Psych: no complaints Head: normocephalic Eyes: nl conjunctiva Neck: non-tender, supple Respiratory: clear to auscultation Cardiovascular: regular rate and rhythm Gastrointestinal: non-tender, soft Musculoskeletal: nl extremities to inspection Lymph: nl lymph nodes Results Result Diagram: 10/25/16 0540 10/25/16 0540 Results 24 hrs Laboratory Tests Test 10/24/16 16:58 10/24/16 21:15 10/25/16 05:40 10/25/16 07:37 Bedside Glucose 100 108 97 Activated Partial Thromboplast Time 32.0 Anion Gap 13 Basophils # 0.0 Basophils % 0.6 Blood Morphology Comment Blood Urea Nitrogen 8 Calcium Level 8.2 L Carbon Dioxide Level 25 Chloride Level 102 Creatinine 0.51 L Eosinophils # 0.2 Eosinophils % 3.2 Glucose Level 80 HIV (1&2) Antibody NEGATIVE Hematocrit 37.1 L Hemoglobin 12.7 L Hepatitis B Core Total Antibody NEGATIVE Hepatitis B Surface Antigen NEGATIVE Hepatitis C Antibody NEGATIVE INR International Normalized Ratio 1.06 Lactate Dehydrogenase 444 Lymphocytes # 1.2 Lymphocytes % 23.5 Mean Corpuscular Hemoglobin 29.8 Mean Corpuscular Hemoglobin Concent 34.3 Mean Corpuscular Volume 86.8 Mean Platelet Volume 6.7 L Monocytes # 0.6 Monocytes % 12.4 H Neutrophils # 2.9 Neutrophils % 60.3 Nucleated Red Blood Cells # 0.0 Nucleated Red Blood Cells % 0.0 Platelet Count 333 Potassium Level 3.9 Prothrombin Time 13.8 Prothrombin Time Ratio 1.1 Red Blood Count 4.28 L Red Cell Distribution Width 13.8 Sodium Level 136 Uric Acid 3.5 White Blood Count 4.9 Medications Medications Current Medications Zolpidem Tartrate (Ambien) 5 mg HS PRN PO INSOMNIA Last administered on at 22:35; Admin Dose 5 MG; Start 10/22/16 at 22:30 Docusate Sodium (Colace) 100 mg BID PO Last administered on 10/24/16at 21:17; Admin Dose 100 MG; Start 10/22/16 at 23:30 Ondansetron HCl (Zofran Inj) 4 mg Q6H PRN IV NAUSEA AND/OR VOMITING Last administered on 10/23/16at 14:42; Admin Dose 4 MG; Start 10/22/16 at 23:30 Acetaminophen (Tylenol Tab) 650 mg Q6H PRN PO PAIN AND OR ELEVATED TEMP; Start 10/22/16 at 23:30 Pantoprazole (Protonix Iv) 40 mg DAILY@06 IV Last administered on 10/25/16at 05 :32; Admin Dose 40 MG; Start 10/23/16 at 06:00 Diagnostic Test (Pha) 1 ea 1 ea 02 XX ; Start 10/23/16 at 02:00 Sodium Chloride (NS) 1,000 ml @ 80 mls/hr [id number] IV Last administered on at 04:23; Admin Dose 80 MLS/HR; Start 10/22/16 at 23:30 Miscellaneous Information 1 ea NOTE XX ; Start 10/22/16 at 23:30 Glucose (Glutose) 15 gm Q15M PRN PO DECREASED GLUCOSE; Start 10/22/16 at 23:30 Glucose (Glutose) 22.5 gm Q15M PRN PO DECREASED GLUCOSE; Start 10/22/16 at 23: 30 Dextrose (D50w Syringe) 25 ml Q15M PRN IV DECREASED GLUCOSE; Start 10/22/16 at 23:30 Dextrose (D50w Syringe) 50 ml Q15M PRN IV DECREASED GLUCOSE; Start 10/22/16 at 23:30 Glucagon (Glucagen) 1 mg Q15M PRN IM DECREASED GLUCOSE; Start 10/22/16 at 23: 30 Glucose (Glutose) 15 gm Q15M PRN BUCCAL DECREASED GLUCOSE; Start 10/22/16 at 23:30 Metoclopramide HCl (Reglan) 10 mg Q6 IV Last administered on 10/25/16at 05:32; Admin Dose 10 MG; Start 10/23/16 at 14:30 TONEY MD Oct 25, 2016 12:42
[2016-10-25 12:55] VITALS: BP 106/52; PULSE 81; RESP 20
--- NOTE | 2016-10-25 13:34 | RADRPT ---
PROCEDURE: CT CHEST WITH CONTRAST CLINICAL INDICATION: Lymphoma TECHNIQUE: Volumetrically acquired images of the thorax obtained with intravenous contrast were re formatted in the axial, coronal, and sagittal planes. CTDI = 11.1 mGy; DLP = 456 mGy-cm. 80 cc of O mnipaque was administered. COMPARISON: CT abdomen from 10/22/2016. FINDINGS: LOWER NECK AND CHEST WALL: A right chest wall port catheter seen with the tip in the superior vena c anil AIRWAYS: The trachea and large airways are normal. Minimal bronchial wall thickening is seen. LUNGS: Occasional benign micronodules are seen, the result of prior bronchiolitis. No suspicious no dules, masses, or consolidation. PLEURA: Unremarkable. No pleural thickening or effusions. MEDIASTINUM: No mediastinal mass. LYMPH NODES: No significant axillary, hilar, or mediastinal lymphadenopathy by CT size criteria. CARDIAC: The heart size is normal. No pericardial effusion. VASCULAR: The aorta and main pulmonary artery are normal in caliber. Aortic and coronary atheroscl erotic calcifications are present. OSSEOUS: No suspicious osseous lesions. Scattered degenerative changes of the thoracic spine is vis ualized. Limited evaluation of the upper abdomen demonstrates bulky gastrohepatic and retroperitoneal lymphad enopathy as demonstrated on prior study. IMPRESSION: 1. Stable bulky retroperitoneal and gastrohepatic lymphadenopathy as demonstrated on prior CT scan consistent with lymphoma. No intrathoracic, supraclavicular, or axillary lymphadenopathy. 2. Aortic and coronary atherosclerosis. 3. Minimal bronchial wall thickening may be sequela of bronchitis, asthma, or other nonspecific airw ay inflammation. No suspicious pulmonary nodules. RPTAT:PP .Rupert Stewart MD, Date Time Electronically viewed and signed by .Rupert Stewart MD, MD on 10/25/2016 13:33 .V/
--- NOTE | 2016-10-25 19:00 | RADRPT ---
Echocardiogram Report Patient Name: LEONARDA FARIA Gender: Male Date: 1955 Study Date: 25-Oct-2016 Vice President Of Procurement: Tori Tobin [facility] Location: [id number] Ref. Physician: NEY SORTO Quality: Good Procedures: Transthoracic echocardiogram with complete 2D, M-Mode, and doppler examination. Indications: Evaluate Left Ventricular function. 2D/M Mode Doppler Measurement Value Normal Ranges Measurement Value Normal Ranges LVIDd 2D 4.9 3.5 - 5.6 cm AV Peak Jaquan 1.3 m/sec LVIDs 2D 3.2 2.1 - 4.1 cm AV Peak PG 7.0 mmHg LVPWd 2D 0.9 0.6 - 1.1 cm AI Peak PG 61.1 mmHg IVSd 2D 0.8 0.6 - 1.1 cm AI Peak Jaquan 3.9 m/sec AoR Diam 2D 3.1 2.0 - 3.7 cm AI PHT 562.9 msec EDV 2D 110.6 cm3 LVOT Peak Jaquan 1.2 m/sec ESV 2D 34.0 cm3 LVOT Peak PG 5.3 mmHg LA Dimen 2D 3.2 2.3 - 4.0 cm MV E Peak Jaquan 0.4 m/sec MV A Peak Jaquan 0.6 m/sec MV E/A 0.8 MV Decel Time 228 msec MV Decel Saline 2 MV E/A 0.8 Findings Left Ventricle: Normal left ventricular systolic function. Normal left ventricular cavity size. Normal left ventricular wall thickness. Ejection fraction is visually estimated at 5560 %. Tissue Doppler/Mitral Doppler indices are consistent with impaired relaxation (Stage I diastolic dysfunction). Right Ventricle: Normal right ventricular size. Normal right ventricular systolic function. Left Atrium: The left atrium is normal in size. Right Atrium: The right atrium is normal in size. Mitral Valve: Normal appearance and function of the mitral valve with trace physiologic regurgitation. Aortic Valve: Aortic cusps appear mildly calcified. Mild aortic valve regurgitation. Tricuspid Valve: Normal appearance and function of the tricuspid valve with trace physiologic regurgitation. Pericardium: Normal pericardium with no significant pericardial effusion. Aorta: Normal aortic root. IVC: Normal size and normal respiratory collapse consistent with normal right atrial pressure. Conclusions 1.Normal left ventricular systolic function. Normal left ventricular cavity size. Normal left ventricular wall thickness. Ejection fraction is visually estimated at 55-60 %. Tissue Doppler/Mitral Doppler indices are consistent with impaired relaxation (Stage I diastolic dysfunction). 2.Normal appearance and function of the mitral valve with trace physiologic regurgitation. 3.Aortic cusps appear mildly calcified. Mild aortic valve regurgitation. 4.Normal appearance and function of the tricuspid valve with trace physiologic regurgitation. Electronically Signed By: Jean-Paul Quan 25-Oct-2016 18:59:33 -0800 Patient Name: LEONARDA FARIA Study Date: 25-Oct-2016 [id number]
[2016-10-25 20:00] VITALS: BP 113/59; PULSE 71; RESP 20
[2016-10-25 23:00] VITALS: BP 114/57; PULSE 76; RESP 17
[2016-10-25] MEDS: ZOLPIDEM 5 MG TAB PO PRN (23:42)
[2016-10-26] MEDS: ACCUCHECK XX SCH (02:00)
[2016-10-26] MEDS: PANTOPRAZOLE 40 MG INJ IV SCH (05:23)
[2016-10-26] MEDS: METOCLOPRAMIDE 10 MG INJ IV SCH ×3 (05:23→17:57)
[2016-10-26] MEDS: SOD CHLORIDE 0.9% 1,000 ML IV SCH ×2 (05:30→21:35)
[2016-10-26 05:41] LABS: URIC ACID 3.5 mg/dl (3.1-7.9)
[2016-10-26] MEDS: INSULIN ASPART [NOVOLOG] 3 ML PEN SC SCH ×4 (07:50→21:00)
[2016-10-26 08:00] VITALS: BP 124/60; PULSE 73; RESP 17
[2016-10-26] MEDS: ALLOPURINOL 300 MG TAB PO SCH (09:23)
[2016-10-26] MEDS: DOCUSATE SODIUM 100 MG CAP PO SCH ×2 (09:23→21:06)
--- NOTE | 2016-10-26 11:08 | PN ---
Date/Time of Note Date/Time of Note DATE: 10/26/16 TIME: 11:05 Assessment/Plan VTE Prophylaxis VTE Prophylaxis Intervention: SCD's Lines/Catheters IV [facility] Central Line Central line still needed: Yes Urinary Cath still in place: No Assessment/Plan Assessment/Plan 1. Large partially obstructing antral gastric mass with extensive ulceration with extensive lymphadenopathy: pt known diagnoses of lymphoma in [place]. Tumor unresectable - s/p EGD with multiple biopsies on 10/23. Will await final pathology result. Stenting felt unnecessary as pt with patent gastrojejunostomy - oncology now on board. portacath was placed yesterday. Chemo per oncology - staging CT chest showed stable bulky retroperitoneal and gastrohepatic lymphadenopathy - There is also a plan for bone marrow bx sometime next week 2. Intractable N/V: 2/2 above: per pt and family, symptom completely resolved with current anti-emetics. Will continue 3. Diabetes: A1C 6.8: diet controlled. PRN insulin while in house DVT/GI Ppx: SCDs and PPI DISP: pending result of pathology from EGD and Bone Marrow Biopsy Subjective 24 Hr Interval Summary Free Text/Dictation pt feeling well. denied pain, nausea or vomiting Exam/Review of Systems Vital Signs Vitals Vital Signs Date Time Temp Pulse Resp B/P Pulse Ox O2 Delivery O2 Flow Rate FiO2 10/26/16 08:00 98.5 73 17 124/60 97 Room Air 10/23/16 14:13 5 Intake and Output 10/25/16 10/25/16 10/26/16 15:00 23:00 07:00 Intake Total 2120 ml 750 ml Balance 2120 ml 750 ml Exam Constitutional: alert, oriented Head: atraumatic, normocephalic Neck: non-tender, supple Respiratory: clear to auscultation, normal air movement Cardiovascular: nl pulses, regular rate and rhythm Gastrointestinal: other (minimal tenderness to deep palpation in RLQ), soft Extremities: normal pulses Results Result Diagram: 10/25/16 0540 10/25/16 0540 Results 24 hrs Laboratory Tests Test 10/25/16 12:54 10/25/16 16:50 10/25/16 20:29 10/26/16 04:26 Bedside Glucose 99 101 99 Lactate Dehydrogenase 503 Uric Acid 3.5 Test 10/26/16 08:09 Bedside Glucose 89 Medications Medications Current Medications Zolpidem Tartrate (Ambien) 5 mg HS PRN PO INSOMNIA Last administered on at 23:42; Admin Dose 5 MG; Start 10/22/16 at 22:30 Docusate Sodium (Colace) 100 mg BID PO Last administered on 10/26/16at 09:23; Admin Dose 100 MG; Start 10/22/16 at 23:30 Ondansetron HCl (Zofran Inj) 4 mg Q6H PRN IV NAUSEA AND/OR VOMITING Last administered on 10/23/16at 14:42; Admin Dose 4 MG; Start 10/22/16 at 23:30 Acetaminophen (Tylenol Tab) 650 mg Q6H PRN PO PAIN AND OR ELEVATED TEMP; Start 10/22/16 at 23:30 Pantoprazole (Protonix Iv) 40 mg DAILY@06 IV Last administered on 10/26/16at 05 :23; Admin Dose 40 MG; Start 10/23/16 at 06:00 Diagnostic Test (Pha) 1 ea 1 ea 02 XX ; Start 10/23/16 at 02:00 Sodium Chloride (NS) 1,000 ml @ 80 mls/hr [id number] IV Last administered on at 05:30; Admin Dose 80 MLS/HR; Start 10/22/16 at 23:30 Miscellaneous Information 1 ea NOTE XX ; Start 10/22/16 at 23:30 Glucose (Glutose) 15 gm Q15M PRN PO DECREASED GLUCOSE; Start 10/22/16 at 23:30 Glucose (Glutose) 22.5 gm Q15M PRN PO DECREASED GLUCOSE; Start 10/22/16 at 23: 30 Dextrose (D50w Syringe) 25 ml Q15M PRN IV DECREASED GLUCOSE; Start 10/22/16 at 23:30 Dextrose (D50w Syringe) 50 ml Q15M PRN IV DECREASED GLUCOSE; Start 10/22/16 at 23:30 Glucagon (Glucagen) 1 mg Q15M PRN IM DECREASED GLUCOSE; Start 10/22/16 at 23: 30 Glucose (Glutose) 15 gm Q15M PRN BUCCAL DECREASED GLUCOSE; Start 10/22/16 at 23:30 Metoclopramide HCl (Reglan) 10 mg Q6 IV Last administered on 10/26/16at 05:23; Admin Dose 10 MG; Start 10/23/16 at 14:30 Allopurinol (Zyloprim) 300 mg DAILY PO Last administered on 10/26/16at 09:23; Admin Dose 300 MG; Start 10/26/16 at 09:00 NICK GRAHAM MD Oct 26, 2016 11:08
[2016-10-26] MEDS ORDERED: ONDANSETRON INJ 8 MG in DEXTROSE 5% 50 ML IV PRN (14:00)
[2016-10-26] MEDS ORDERED: DEXAMETHASONE 10 MG/ML 1 ML INJ IV ONE (14:00)
[2016-10-26] MEDS ORDERED: DIPHENHYDRAMINE 50 MG INJ IV PRN (14:00)
[2016-10-26] MEDS ORDERED: DEXAMETHASONE 10 MG/ML 1 ML INJ IV PRN (15:00)
[2016-10-26 20:00] VITALS: BP 118/65; PULSE 74; RESP 16
--- NOTE | 2016-10-26 20:36 | CONS ---
Date/Time of Note Date/Time of Note DATE: 10/26/16 TIME: 20:35 Assessment/Plan Assessment/Plan Chief Complaint/Hosp Course Assessment Persistent nausea and vomiting/gastric outlet obstruction * Known gastric mass, diagnosed lymphoma in [place] * Unresectable large distal gastric proximal intestinal mass with significant lymphadenopathy * There would be no benefit to stenting the gastric outlet obstruction as the patient has a patent gastrojejunostomy which is much wider than what a stent may accomplish without significant difficulties that it may entail. Oncology consultation is pending. The possibility of chemotherapy and radiation therapy if this turns out to be a lymphoma should provide relatively rapid and beneficial response. 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 Constitutional: improved Exam/Review of Systems Vital Signs Vitals Vital Signs Date Time Temp Pulse Resp B/P Pulse Ox O2 Delivery O2 Flow Rate FiO2 10/26/16 20:00 97.7 74 16 118/65 98 Room Air 10/23/16 14:13 5 Intake and Output 10/25/16 10/25/16 10/26/16 15:00 23:00 07:00 Intake Total 2120 ml 750 ml Balance 2120 ml 750 ml Exam Constitutional: alert, oriented, well developed Psych: nl mood/affect, no complaints Head: atraumatic, normocephalic Eyes: EOMI, nl conjunctiva, nl lids, nl sclera ENMT: mucosa pink and moist, nl external ears & nose, nl lips & teeth, nl nasal mucosa & septum Neck: non-tender, supple Respiratory: clear to auscultation, normal air movement Cardiovascular: nl pulses, regular rate and rhythm Gastrointestinal: bowel sounds, non-tender, soft Results Result Diagram: 10/25/16 0540 10/25/16 0540 Results 24 hrs Laboratory Tests Test 10/26/16 04:26 10/26/16 08:09 10/26/16 12:10 10/26/16 17:03 Lactate Dehydrogenase 503 Uric Acid 3.5 Bedside Glucose 89 123 100 Medications Medications Current Medications Zolpidem Tartrate (Ambien) 5 mg HS PRN PO INSOMNIA Last administered on at 23:42; Admin Dose 5 MG; Start 10/22/16 at 22:30 Docusate Sodium (Colace) 100 mg BID PO Last administered on 10/26/16at 09:23; Admin Dose 100 MG; Start 10/22/16 at 23:30 Ondansetron HCl (Zofran Inj) 4 mg Q6H PRN IV NAUSEA AND/OR VOMITING Last administered on 10/23/16at 14:42; Admin Dose 4 MG; Start 10/22/16 at 23:30 Acetaminophen (Tylenol Tab) 650 mg Q6H PRN PO PAIN AND OR ELEVATED TEMP; Start 10/22/16 at 23:30 Pantoprazole (Protonix Iv) 40 mg DAILY@06 IV Last administered on 10/26/16at 05 :23; Admin Dose 40 MG; Start 10/23/16 at 06:00 Diagnostic Test (Pha) 1 ea 1 ea 02 XX ; Start 10/23/16 at 02:00 Sodium Chloride (NS) 1,000 ml @ 80 mls/hr [id number] IV Last administered on at 05:30; Admin Dose 80 MLS/HR; Start 10/22/16 at 23:30 Miscellaneous Information 1 ea NOTE XX ; Start 10/22/16 at 23:30 Glucose (Glutose) 15 gm Q15M PRN PO DECREASED GLUCOSE; Start 10/22/16 at 23:30 Glucose (Glutose) 22.5 gm Q15M PRN PO DECREASED GLUCOSE; Start 10/22/16 at 23: 30 Dextrose (D50w Syringe) 25 ml Q15M PRN IV DECREASED GLUCOSE; Start 10/22/16 at 23:30 Dextrose (D50w Syringe) 50 ml Q15M PRN IV DECREASED GLUCOSE; Start 10/22/16 at 23:30 Glucagon (Glucagen) 1 mg Q15M PRN IM DECREASED GLUCOSE; Start 10/22/16 at 23: 30 Glucose (Glutose) 15 gm Q15M PRN BUCCAL DECREASED GLUCOSE; Start 10/22/16 at 23:30 Metoclopramide HCl (Reglan) 10 mg Q6 IV Last administered on 10/26/16at 12:54; Admin Dose 10 MG; Start 10/23/16 at 14:30 Allopurinol 300 mg 300 mg DAILY PO Last administered on 10/26/16at 09:23; Admin Dose 300 MG; Start 10/26/16 at 09:00 Ondansetron HCl/ Dextrose (Zofran Inj/D5W) 54 ml @ 108 mls/hr Q6H PRN IV NAUSEA AND/OR VOMITING; Start 10/26/16 at 14:00 Diphenhydramine HCl (Benadryl) 25 mg Q6H PRN IV ALLERGIC REACTION; Start 10/26 at 14:00 Dexamethasone (Decadron) 8 mg ONCE PRN IV ALLERGIC REACTION; Start 10/26/16 at 15:00; Stop 01/24/17 at 14:59 Prednisone (Prednisone) 50 mg DAILY PO ; Start 10/26/16 at 21:00; Stop 10/30/16 at 09:01 Acetaminophen (Tylenol Tab) 650 mg 0930 PO ; Start 10/27/16 at 09:30; Stop at 09:31 Diphenhydramine HCl 25 mg 25 mg 0930 PO ; Start 10/27/16 at 09:30; Stop 10/27/16 at 09:31 Famotidine/ Ondansetron HCl/ Sodium Chloride (Pepcid Iv/ Zofran Inj/NS) 60 ml @ 120 mls/hr 2130 IV ; Start 10/26/16 at 21:30; Stop 10/26/16 at 21:59 POLLY OLSON MD Oct 26, 2016 20:36
[2016-10-26] MEDS ORDERED: ONDANSETRON IV SCH (21:30)
[2016-10-26] MEDS ORDERED: SOD CHLORIDE 0.9% IV SCH ×2 (21:30→22:00)
[2016-10-26] MEDS ORDERED: FAMOTIDINE IV SCH (21:30)
[2016-10-26] MEDS: predniSONE 50 MG TAB PO SCH (21:35)
[2016-10-26] MEDS ORDERED: DIPHENHYDRAMINE 25 MG CAP PO SCH (22:00)
[2016-10-26] MEDS ORDERED: RITUXIMAB IV SCH (22:00)
[2016-10-26] MEDS ORDERED: ACETAMINOPHEN 325 MG TAB PO SCH (22:00)
[2016-10-27] VITALS (12 sets, daily range): BP systolic 101–141; BP diastolic 55–63; PULSE 52–85; RESP 16–18
[2016-10-27] MEDS: METOCLOPRAMIDE 10 MG INJ IV SCH ×5 (00:39→23:55)
[2016-10-27] MEDS: ACCUCHECK XX SCH (01:38)
[2016-10-27] MEDS: SOD CHLORIDE 0.9% 1,000 ML IV SCH ×2 (03:30→12:55)
[2016-10-27] MEDS: PANTOPRAZOLE 40 MG INJ IV SCH (05:33)
[2016-10-27 05:42] LABS: URIC ACID 2.9 mg/dl (3.1-7.9)
[2016-10-27] MEDS: DOCUSATE SODIUM 100 MG CAP PO SCH ×2 (08:50→20:46)
[2016-10-27] MEDS: predniSONE 50 MG TAB PO SCH (08:50)
[2016-10-27] MEDS: ALLOPURINOL 300 MG TAB PO SCH (08:50)
[2016-10-27] MEDS: INSULIN ASPART [NOVOLOG] 3 ML PEN SC SCH ×4 (08:56→20:48)
[2016-10-27] MEDS ORDERED: SOD CHLORIDE 0.9% IV SCH (09:30)
[2016-10-27] MEDS ORDERED: FAMOTIDINE IV SCH (09:30)
[2016-10-27] MEDS ORDERED: ONDANSETRON IV SCH (09:30)
[2016-10-27] MEDS: TRIMETHOPRIM/SULFAMETHOX (DS) TAB PO SCH (14:45)
[2016-10-27] MEDS: ONDANSETRON IV SCH (14:46)
[2016-10-27] MEDS: FAMOTIDINE IV SCH (14:46)
[2016-10-27] MEDS: SOD CHLORIDE 0.9% IV SCH ×3 (14:46→17:36)
[2016-10-27] MEDS: ETOPOSIDE IV SCH (15:43)
--- NOTE | 2016-10-27 15:47 | PN ---
Date/Time of Note Date/Time of Note DATE: 10/27/16 TIME: 15:42 Assessment/Plan VTE Prophylaxis VTE Prophylaxis Intervention: LMWH Lines/Catheters IV [facility] Portacath Urinary Cath still in place: No Assessment/Plan Chief Complaint/Hosp Course A/P 1. Gastric Outlet Obstruction; stable. cont supportive care. 2. Likely DLBCL; for chemo/xrt- may improve obstruction w time. Bmarrow bx/ outpt pet/ct 3. Ftt/ 4. Pre Diabetes 5. Anemia; lovenox if stable. Problems: Subjective 24 Hr Interval Summary Free Text/Dictation S- no events; no distress Exam/Review of Systems Vital Signs Vitals Vital Signs Date Time Temp Pulse Resp B/P Pulse Ox O2 Delivery O2 Flow Rate FiO2 10/27/16 15:00 98.8 18 122/62 98 Room Air 10/27/16 08:00 85 10/23/16 14:13 5 Intake and Output 10/26/16 10/26/16 10/27/16 15:00 23:00 07:00 Intake Total 1820 ml 1090 ml Balance 1820 ml 1090 ml Exam Constitutional: alert Respiratory: clear to auscultation (port c/d/i) Cardiovascular: regular rate and rhythm Gastrointestinal: non-tender (nd; no r r g), soft Extremities: other Results Result Diagram: 10/25/16 0540 10/25/16 0540 Results 24 hrs Laboratory Tests Test 10/26/16 17:03 10/26/16 21:08 10/27/16 04:45 10/27/16 08:16 Bedside Glucose 100 138 144 Lactate Dehydrogenase 987 H Uric Acid 2.9 L Test 10/27/16 11:53 Bedside Glucose 158 Medications Medications Current Medications Zolpidem Tartrate (Ambien) 5 mg HS PRN PO INSOMNIA Last administered on at 23:42; Admin Dose 5 MG; Start 10/22/16 at 22:30 Docusate Sodium (Colace) 100 mg BID PO Last administered on 10/27/16t 08:50; Admin Dose 100 MG; Start 10/22/16 at 23:30 Ondansetron HCl (Zofran Inj) 4 mg Q6H PRN IV NAUSEA AND/OR VOMITING Last administered on 10/23/16at 14:42; Admin Dose 4 MG; Start 10/22/16 at 23:30 Acetaminophen (Tylenol Tab) 650 mg Q6H PRN PO PAIN AND OR ELEVATED TEMP; Start 10/22/16 at 23:30 Pantoprazole (Protonix Iv) 40 mg DAILY@06 IV Last administered on 10/27/16 05: 33; Admin Dose 40 MG; Start 10/23/16 at 06:00 Diagnostic Test (Pha) 1 ea 1 ea 02 XX ; Start 10/23/16 at 02:00 Sodium Chloride (NS) 1,000 ml @ 80 mls/hr [id number] IV Last administered on 12:55; Admin Dose 80 MLS/HR; Start 10/22/16 at 23:30 Miscellaneous Information 1 ea NOTE XX ; Start 10/22/16 at 23:30 Glucose (Glutose) 15 gm Q15M PRN PO DECREASED GLUCOSE; Start 10/22/16 at 23:30 Glucose (Glutose) 22.5 gm Q15M PRN PO DECREASED GLUCOSE; Start 10/22/16 at 23: 30 Dextrose (D50w Syringe) 25 ml Q15M PRN IV DECREASED GLUCOSE; Start 10/22/16 at 23:30 Dextrose (D50w Syringe) 50 ml Q15M PRN IV DECREASED GLUCOSE; Start 10/22/16 at 23:30 Glucagon (Glucagen) 1 mg Q15M PRN IM DECREASED GLUCOSE; Start 10/22/16 at 23: 30 Glucose (Glutose) 15 gm Q15M PRN BUCCAL DECREASED GLUCOSE; Start 10/22/16 at 23:30 Metoclopramide HCl (Reglan) 10 mg Q6 IV Last administered on 10/27/16 12:55; Admin Dose 10 MG; Start 10/23/16 at 14:30 Allopurinol 300 mg 300 mg DAILY PO Last administered on 10/27/16 08:50; Admin Dose 300 MG; Start 10/26/16 at 09:00 Ondansetron HCl/ Dextrose (Zofran Inj/D5W) 54 ml @ 108 mls/hr Q6H PRN IV NAUSEA AND/OR VOMITING; Start 10/26/16 at 14:00 Diphenhydramine HCl (Benadryl) 25 mg Q6H PRN IV ALLERGIC REACTION; Start 12/31 /16 at 14:00 Dexamethasone (Decadron) 8 mg ONCE PRN IV ALLERGIC REACTION; Start 10/26/16 at 15:00; Stop 01/24/17 at 14:59 Prednisone 50 mg 50 mg DAILY PO Last administered on 10/27/16 08:50; Admin Dose 50 MG; Start 10/26/16 at 21:00; Stop 10/30/16 at 09:01 Famotidine 20 mg/ Ondansetron HCl 16 mg/Sodium Chloride 60 ml @ 120 mls/hr 15 IV Last administered on 10/27/16 14:46; Admin Dose 120 MLS/HR; Start 10/27/16 at 15:00; Stop 10/31/16 at 15:29 Etoposide 83 mg/ Sodium Chloride 500 ml @ 21 mls/hr 16 IV ; Start 10/27/16 at 16 :00; Stop 10/31/16 at 15:49 Doxorubicin HCl 17 mg/Vincristine Sulfate 0.5 mg/ Sodium Chloride 500 ml @ 21 mls/hr 16 IV ; Start 10/27/16 at 16:00; Stop 10/31/16 at 15:49 Cyclophosphamide/ Cyclophosphamide/ Sodium Chloride (Cytoxan/Cytoxan/ NS) 250 ml @ 1,000 mls/hr 16 IV ; Start 10/31/16 at 16:00; Stop 10/31/16 at 16:14 Filgrastim (Neupogen) 300 mcg DAILY@17 SC ; Start 11/01/16 at 17:00 Trimethoprim/ Sulfamethoxazole (Bactrim (Ds)) 1 tab BID PO Last administered on 10/27/16 14:45; Admin Dose 1 TAB; Start 10/27/16 at 14:00 GEOVANY STAHL MD Oct 27, 2016 15:46
[2016-10-27] MEDS: VINCRISTINE IV SCH (17:36)
[2016-10-27] MEDS: DOXORUBICIN IV SCH (17:36)
--- NOTE | 2016-10-27 18:35 | CONS ---
Date/Time of Note Date/Time of Note DATE: 10/27/16 TIME: 18:35 Assessment/Plan Assessment/Plan Chief Complaint/Hosp Course Assessment Persistent nausea and vomiting/gastric outlet obstruction * Known gastric mass, diagnosed lymphoma in [place] * Unresectable large distal gastric proximal intestinal mass with significant lymphadenopathy * There would be no benefit to stenting the gastric outlet obstruction as the patient has a patent gastrojejunostomy which is much wider than what a stent may accomplish without significant difficulties that it may entail. Oncology consultation is pending. The possibility of chemotherapy and radiation therapy if this turns out to be a lymphoma should provide relatively rapid and beneficial response. 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 Plan: * Advance diet as tolerated * Review final pathology * Reglan 10mg every 6 hrs * treatment of gastric lymphoma per [place] consultant Problems: Consultation Date/Type/Reason Admit Date/Time Oct 22, 2016 at 19:46 Initial Consult Date 10/24/16 Type of Consultation: GI 24 HR Interval Summary Free Text/Dictation no n/v, no abdominal pain Exam/Review of Systems Vital Signs Vitals Vital Signs Date Time Temp Pulse Resp B/P Pulse Ox O2 Delivery O2 Flow Rate FiO2 10/27/16 18:25 97.6 16 101/56 95 Room Air 10/27/16 15:54 62 10/23/16 14:13 5 Intake and Output 10/26/16 10/26/16 10/27/16 15:00 23:00 07:00 Intake Total 1820 ml 1090 ml Balance 1820 ml 1090 ml Exam Constitutional: alert, oriented, well developed Head: atraumatic, normocephalic Eyes: EOMI, nl conjunctiva, nl lids, nl sclera ENMT: mucosa pink and moist, nl external ears & nose, nl lips & teeth, nl nasal mucosa & septum Neck: non-tender, supple Respiratory: clear to auscultation, normal air movement Cardiovascular: nl pulses, regular rate and rhythm Gastrointestinal: bowel sounds, soft Results Result Diagram: 10/25/16 0540 10/25/16 0540 Results 24 hrs Laboratory Tests Test 10/26/16 21:08 10/27/16 04:45 10/27/16 08:16 10/27/16 11:53 Bedside Glucose 138 144 158 Lactate Dehydrogenase 987 H Uric Acid 2.9 L Test 10/27/16 16:26 Bedside Glucose 195 Medications Medications Current Medications Zolpidem Tartrate (Ambien) 5 mg HS PRN PO INSOMNIA Last administered on at 23:42; Admin Dose 5 MG; Start 10/22/16 at 22:30 Docusate Sodium (Colace) 100 mg BID PO Last administered on 10/27/16 08:50; Admin Dose 100 MG; Start 10/22/16 at 23:30 Ondansetron HCl (Zofran Inj) 4 mg Q6H PRN IV NAUSEA AND/OR VOMITING Last administered on 10/23/16at 14:42; Admin Dose 4 MG; Start 10/22/16 at 23:30 Acetaminophen (Tylenol Tab) 650 mg Q6H PRN PO PAIN AND OR ELEVATED TEMP; Start 10/22/16 at 23:30 Pantoprazole (Protonix Iv) 40 mg DAILY@06 IV Last administered on 10/27/16 05: 33; Admin Dose 40 MG; Start 10/23/16 at 06:00 Diagnostic Test (Pha) 1 ea 1 ea 02 XX ; Start 10/23/16 at 02:00 Sodium Chloride (NS) 1,000 ml @ 80 mls/hr [id number] IV Last administered on 12:55; Admin Dose 80 MLS/HR; Start 10/22/16 at 23:30 Miscellaneous Information 1 ea NOTE XX ; Start 10/22/16 at 23:30 Glucose (Glutose) 15 gm Q15M PRN PO DECREASED GLUCOSE; Start 10/22/16 at 23:30 Glucose (Glutose) 22.5 gm Q15M PRN PO DECREASED GLUCOSE; Start 10/22/16 at 23: 30 Dextrose (D50w Syringe) 25 ml Q15M PRN IV DECREASED GLUCOSE; Start 10/22/16 at 23:30 Dextrose (D50w Syringe) 50 ml Q15M PRN IV DECREASED GLUCOSE; Start 10/22/16 at 23:30 Glucagon (Glucagen) 1 mg Q15M PRN IM DECREASED GLUCOSE; Start 10/22/16 at 23: 30 Glucose (Glutose) 15 gm Q15M PRN BUCCAL DECREASED GLUCOSE; Start 10/22/16 at 23:30 Metoclopramide HCl (Reglan) 10 mg Q6 IV Last administered on 10/27/16 17:28; Admin Dose 10 MG; Start 10/23/16 at 14:30 Allopurinol 300 mg 300 mg DAILY PO Last administered on 10/27/16 08:50; Admin Dose 300 MG; Start 10/26/16 at 09:00 Ondansetron HCl/ Dextrose (Zofran Inj/D5W) 54 ml @ 108 mls/hr Q6H PRN IV NAUSEA AND/OR VOMITING; Start 10/26/16 at 14:00 Diphenhydramine HCl (Benadryl) 25 mg Q6H PRN IV ALLERGIC REACTION; Start 10/26 at 14:00 Dexamethasone (Decadron) 8 mg ONCE PRN IV ALLERGIC REACTION; Start 10/26/16 at 15:00; Stop 01/24/17 at 14:59 Prednisone 50 mg 50 mg DAILY PO Last administered on 10/27/16 08:50; Admin Dose 50 MG; Start 10/26/16 at 21:00; Stop 10/30/16 at 09:01 Famotidine 20 mg/ Ondansetron HCl 16 mg/Sodium Chloride 60 ml @ 120 mls/hr 15 IV Last administered on 10/27/16 14:46; Admin Dose 120 MLS/HR; Start 10/27/16 at 15:00; Stop 10/31/16 at 15:29 Etoposide 83 mg/ Sodium Chloride 500 ml @ 21 mls/hr 16 IV Last administered on 10/27/16 15:43; Admin Dose 21 MLS/HR; Start 10/27/16 at 16:00; Stop 10/31/16 at 15:49 Doxorubicin HCl 17 mg/Vincristine Sulfate 0.5 mg/ Sodium Chloride 500 ml @ 21 mls/hr 16 IV Last administered on 10/27/16 17:36; Admin Dose 21 MLS/HR; Start 10/27/16 at 16:00; Stop 10/31/16 at 15:49 Cyclophosphamide/ Cyclophosphamide/ Sodium Chloride (Cytoxan/Cytoxan/ NS) 250 ml @ 1,000 mls/hr 16 IV ; Start 10/31/16 at 16:00; Stop 10/31/16 at 16:14 Filgrastim (Neupogen) 300 mcg DAILY@17 SC ; Start 11/01/16 at 17:00 Trimethoprim/ Sulfamethoxazole (Bactrim (Ds)) 1 tab BID PO Last administered on 10/27/16t 14:45; Admin Dose 1 TAB; Start 10/27/16 at 14:00 POLLY OLSON MD Oct 27, 2016 18:35
[2016-10-27] MEDS: ZOLPIDEM 5 MG TAB PO PRN (22:29)
[2016-10-28] VITALS (7 sets, daily range): BP systolic 107–131; BP diastolic 53–63; PULSE 50–61; RESP 16–20
[2016-10-28] MEDS: TRIMETHOPRIM/SULFAMETHOX (DS) TAB PO SCH ×3 (00:05→21:47)
[2016-10-28] MEDS: SOD CHLORIDE 0.9% 1,000 ML IV SCH (01:10)
[2016-10-28] MEDS: ACCUCHECK XX SCH (02:14)
[2016-10-28 06:05] LABS: BASOPHILS % 0.2 % (0.0-2.0); EOSINOPHILS # 0.1 10^3/ul (0.0-0.5); EOSINOPHILS % 0.9 % (0.0-7.0); HEMATOCRIT 33.8 % (42.0-52.0); HEMOGLOBIN 11.6 g/dl (14.0-18.0); LYMPHOCYTES # 0.8 10^3/ul (0.8-2.9); LYMPHOCYTES % 12.9 % (15.0-51.0); MEAN CORPUSCULAR HEMOGLOBIN 29.8 pg (29.0-33.0); MEAN CORPUSCULAR HGB CONC 34.4 g/dl (32.0-37.0); MEAN CORPUSCULAR VOLUME 86.8 fl (82.0-101.0); MEAN PLATELET VOLUME 6.8 fl (7.4-10.4); MONOCYTE # 0.6 10^3/ul (0.3-0.9); MONOCYTES % 9.2 % (0.0-11.0); NEUTROPHIL # 4.8 10^3/ul (1.6-7.5); NEUTROPHILS % 76.8 % (39.0-77.0); PLATELET COUNT 285 10^3/UL (140-440); RED CELL DISTRIBUTION WIDTH 13.7 % (11.5-14.5); UNCORRECTED WBC 6.2 10^3/ul (4.8-10.8); WHITE BLOOD COUNT 6.2 10^3/ul (4.8-10.8)
[2016-10-28] MEDS: METOCLOPRAMIDE 10 MG INJ IV SCH ×4 (06:09→23:42)
[2016-10-28] MEDS: PANTOPRAZOLE 40 MG INJ IV SCH (06:09)
[2016-10-28 06:11] LABS: CONDITION 1
[2016-10-28 06:19] LABS: INR 1.09; PROTIME 14.1 Sec (12.2-14.2); PT RATIO 1.1
[2016-10-28 06:25] LABS: POTASSIUM 3.7 mmol/L (3.5-5.1)
[2016-10-28 06:27] LABS: CREATININE 0.49 mg/dl (0.61-1.24); URIC ACID 2.8 mg/dl (3.1-7.9)
[2016-10-28 06:29] LABS: CALCIUM 8.3 mg/dl (8.4-10.2); MAGNESIUM 1.8 mg/dl (1.7-2.5)
[2016-10-28 06:55] LABS: THYROID STIMULATING HORMONE 5.05 MIU/L (0.465-4.680)
[2016-10-28] MEDS: INSULIN ASPART [NOVOLOG] 3 ML PEN SC SCH ×4 (07:50→21:50)
[2016-10-28] MEDS: ALLOPURINOL 300 MG TAB PO SCH (08:23)
[2016-10-28] MEDS: DOCUSATE SODIUM 100 MG CAP PO SCH ×2 (08:23→21:47)
[2016-10-28] MEDS: predniSONE 50 MG TAB PO SCH (08:23)
--- NOTE | 2016-10-28 09:34 | CONS ---
Date/Time of Note Date/Time of Note DATE: 10/28/16 TIME: 09:32 Assessment/Plan Assessment/Plan Chief Complaint/Hosp Course Assessment Persistent nausea and vomiting/gastric outlet obstruction * Known gastric mass, diagnosed lymphoma in [place] * Unresectable large distal gastric proximal intestinal mass with significant lymphadenopathy * There would be no benefit to stenting the gastric outlet obstruction as the patient has a patent gastrojejunostomy which is much wider than what a stent may accomplish without significant difficulties that it may entail. Oncology consultation is pending. The possibility of chemotherapy and radiation therapy if this turns out to be a lymphoma should provide relatively rapid and beneficial response. 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 Rojas to resume care of this patient tomorrow Problems: Consultation Date/Type/Reason Admit Date/Time Oct 22, 2016 at 19:46 Initial Consult Date 10/24/16 Type of Consultation: GI 24 HR Interval Summary Free Text/Dictation no n/v, tolerating po Constitutional: improved Exam/Review of Systems Vital Signs Vitals Vital Signs Date Time Temp Pulse Resp B/P Pulse Ox O2 Delivery O2 Flow Rate FiO2 10/28/16 08:02 98.0 59 18 107/53 97 10/28/16 06:15 Room Air Intake and Output 10/27/16 10/27/16 10/28/16 15:00 23:00 07:00 Intake Total 350 ml 1220 ml 2213 ml Output Total 1140 ml 2700 ml Balance 350 ml 80 ml -487 ml Exam Constitutional: alert, oriented, well developed Psych: nl mood/affect, no complaints Head: atraumatic, normocephalic Eyes: EOMI, nl conjunctiva, nl lids, nl sclera ENMT: mucosa pink and moist, nl external ears & nose, nl lips & teeth, nl nasal mucosa & septum Neck: non-tender, supple Respiratory: clear to auscultation, normal air movement Cardiovascular: nl pulses, regular rate and rhythm Gastrointestinal: bowel sounds, non-tender, soft Results Result Diagram: 10/28/16 0442 10/28/16 0442 Results 24 hrs Laboratory Tests Test 10/27/16 11:53 10/27/16 16:26 10/27/16 20:13 10/28/16 02:07 Bedside Glucose 158 195 186 108 Test 10/28/16 04:42 10/28/16 07:59 Anion Gap 11 Basophils # 0.0 Basophils % 0.2 Blood Morphology Comment Blood Urea Nitrogen 8 Calcium Level 8.3 L Carbon Dioxide Level 25 Chloride Level 104 Creatinine 0.49 L Eosinophils # 0.1 Eosinophils % 0.9 Glucose Level 81 Hematocrit 33.8 L Hemoglobin 11.6 L INR International Normalized Ratio 1.09 Lactate Dehydrogenase 1083 H Lymphocytes # 0.8 Lymphocytes % 12.9 L Magnesium Level 1.8 Mean Corpuscular Hemoglobin 29.8 Mean Corpuscular Hemoglobin Concent 34.4 Mean Corpuscular Volume 86.8 Mean Platelet Volume 6.8 L Monocytes # 0.6 Monocytes % 9.2 Neutrophils # 4.8 Neutrophils % 76.8 Nucleated Red Blood Cells # 0.0 Nucleated Red Blood Cells % 0.0 Phosphorus Level 4.0 Platelet Count 285 Potassium Level 3.7 Prothrombin Time 14.1 Prothrombin Time Ratio 1.1 Red Blood Count 3.90 L Red Cell Distribution Width 13.7 Sodium Level 136 Thyroid Stimulating Hormone (TSH) 5.050 H Uric Acid 2.8 L White Blood Count 6.2 # Bedside Glucose 86 Medications Medications Current Medications Zolpidem Tartrate (Ambien) 5 mg HS PRN PO INSOMNIA Last administered on 22:29; Admin Dose 5 MG; Start 10/22/16 at 22:30 Docusate Sodium (Colace) 100 mg BID PO Last administered on 10/28/16 08:23; Admin Dose 100 MG; Start 10/22/16 at 23:30 Ondansetron HCl (Zofran Inj) 4 mg Q6H PRN IV NAUSEA AND/OR VOMITING Last administered on 10/23/16at 14:42; Admin Dose 4 MG; Start 10/22/16 at 23:30 Acetaminophen (Tylenol Tab) 650 mg Q6H PRN PO PAIN AND OR ELEVATED TEMP; Start 10/22/16 at 23:30 Pantoprazole (Protonix Iv) 40 mg DAILY@06 IV Last administered on 10/28/16 06: 09; Admin Dose 40 MG; Start 10/23/16 at 06:00 Diagnostic Test (Pha) 1 ea 1 ea 02 XX Last administered on 10/28/16 02:14; Admin Dose 1 EA; Start 10/23/16 at 02:00 Sodium Chloride (NS) 1,000 ml @ 80 mls/hr [id number] IV Last administered on 01:10; Admin Dose 80 MLS/HR; Start 10/22/16 at 23:30 Miscellaneous Information 1 ea NOTE XX ; Start 10/22/16 at 23:30 Glucose (Glutose) 15 gm Q15M PRN PO DECREASED GLUCOSE; Start 10/22/16 at 23:30 Glucose (Glutose) 22.5 gm Q15M PRN PO DECREASED GLUCOSE; Start 10/22/16 at 23: 30 Dextrose (D50w Syringe) 25 ml Q15M PRN IV DECREASED GLUCOSE; Start 10/22/16 at 23:30 Dextrose (D50w Syringe) 50 ml Q15M PRN IV DECREASED GLUCOSE; Start 10/22/16 at 23:30 Glucagon (Glucagen) 1 mg Q15M PRN IM DECREASED GLUCOSE; Start 10/22/16 at 23: 30 Glucose (Glutose) 15 gm Q15M PRN BUCCAL DECREASED GLUCOSE; Start 10/22/16 at 23:30 Metoclopramide HCl (Reglan) 10 mg Q6 IV Last administered on 10/28/16 06:09; Admin Dose 10 MG; Start 10/23/16 at 14:30 Allopurinol 300 mg 300 mg DAILY PO Last administered on 10/28/16 08:23; Admin Dose 300 MG; Start 10/26/16 at 09:00 Ondansetron HCl/ Dextrose (Zofran Inj/D5W) 54 ml @ 108 mls/hr Q6H PRN IV NAUSEA AND/OR VOMITING; Start 10/26/16 at 14:00 Diphenhydramine HCl (Benadryl) 25 mg Q6H PRN IV ALLERGIC REACTION; Start 10/26 at 14:00 Dexamethasone (Decadron) 8 mg ONCE PRN IV ALLERGIC REACTION; Start 10/26/16 at 15:00; Stop 01/24/17 at 14:59 Prednisone 50 mg 50 mg DAILY PO Last administered on 10/28/16 08:23; Admin Dose 50 MG; Start 10/26/16 at 21:00; Stop 10/30/16 at 09:01 Famotidine 20 mg/ Ondansetron HCl 16 mg/Sodium Chloride 60 ml @ 120 mls/hr 15 IV Last administered on 10/27/16 14:46; Admin Dose 120 MLS/HR; Start 10/27/16 at 15:00; Stop 10/31/16 at 15:29 Etoposide 83 mg/ Sodium Chloride 500 ml @ 21 mls/hr 16 IV Last administered on 10/27/16 15:43; Admin Dose 21 MLS/HR; Start 10/27/16 at 16:00; Stop 10/31/16 at 15:49 Doxorubicin HCl 17 mg/Vincristine Sulfate 0.5 mg/ Sodium Chloride 500 ml @ 21 mls/hr 16 IV Last administered on 10/27/16 17:36; Admin Dose 21 MLS/HR; Start 10/27/16 at 16:00; Stop 10/31/16 at 15:49 Cyclophosphamide/ Cyclophosphamide/ Sodium Chloride (Cytoxan/Cytoxan/ NS) 250 ml @ 1,000 mls/hr 16 IV ; Start 10/31/16 at 16:00; Stop 10/31/16 at 16:14 Filgrastim (Neupogen) 300 mcg DAILY@17 SC ; Start 11/01/16 at 17:00 Trimethoprim/ Sulfamethoxazole (Bactrim (Ds)) 1 tab BID PO Last administered on 10/28/16 08:23; Admin Dose 1 TAB; Start 10/27/16 at 14:00 POLLY OLSON MD Oct 28, 2016 09:34
--- NOTE | 2016-10-28 12:10 | PN ---
Date/Time of Note Date/Time of Note DATE: 10/28/16 TIME: 12:06 Assessment/Plan VTE Prophylaxis VTE Prophylaxis Intervention: SCD's Lines/Catheters IV [facility] Portacath Central line still needed: Yes Urinary Cath still in place: No Assessment/Plan Assessment/Plan 1. DLBCL (Large partially obstructing antral gastric mass with extensive ulceration with extensive lymphadenopathy): pt known diagnoses of lymphoma in [place]. Tumor unresectable - s/p EGD with multiple biopsies on 10/23, pathology DLBCL. Stenting felt unnecessary as pt with patent gastrojejunostomy - staging CT chest showed stable bulky retroperitoneal and gastrohepatic lymphadenopathy - Possible bone marrow bx sometime this week - Chemo per Oncology 2. Intractable N/V: 2/2 above: per pt and family, symptom completely resolved with current anti-emetics. Will continue 3. Diabetes: A1C 6.8: diet controlled. PRN insulin while in house DVT/GI Ppx: SCDs and PPI Subjective 24 Hr Interval Summary Free Text/Dictation pt looks comfortable. denied N/V or pain Exam/Review of Systems Vital Signs Vitals Vital Signs Date Time Temp Pulse Resp B/P Pulse Ox O2 Delivery O2 Flow Rate FiO2 10/28/16 08:02 98.0 59 18 107/53 97 10/28/16 06:15 Room Air Intake and Output 10/27/16 10/27/16 10/28/16 15:00 23:00 07:00 Intake Total 350 ml 1220 ml 2213 ml Output Total 1140 ml 2700 ml Balance 350 ml 80 ml -487 ml Exam Constitutional: alert, oriented Head: atraumatic, normocephalic Neck: non-tender, supple Respiratory: clear to auscultation, normal air movement Cardiovascular: nl pulses, regular rate and rhythm Gastrointestinal: other (minimal tenderness to deep palpation in RLQ), soft Extremities: normal pulses Results Result Diagram: 10/28/16 0442 10/28/16 0442 Results 24 hrs Laboratory Tests Test 10/27/16 16:26 10/27/16 20:13 10/28/16 02:07 10/28/16 04:42 Bedside Glucose 195 186 108 Anion Gap 11 Basophils # 0.0 Basophils % 0.2 Blood Morphology Comment Blood Urea Nitrogen 8 Calcium Level 8.3 L Carbon Dioxide Level 25 Chloride Level 104 Creatinine 0.49 L Eosinophils # 0.1 Eosinophils % 0.9 Glucose Level 81 Hematocrit 33.8 L Hemoglobin 11.6 L INR International Normalized Ratio 1.09 Lactate Dehydrogenase 1083 H Lymphocytes # 0.8 Lymphocytes % 12.9 L Magnesium Level 1.8 Mean Corpuscular Hemoglobin 29.8 Mean Corpuscular Hemoglobin Concent 34.4 Mean Corpuscular Volume 86.8 Mean Platelet Volume 6.8 L Monocytes # 0.6 Monocytes % 9.2 Neutrophils # 4.8 Neutrophils % 76.8 Nucleated Red Blood Cells # 0.0 Nucleated Red Blood Cells % 0.0 Phosphorus Level 4.0 Platelet Count 285 Potassium Level 3.7 Prothrombin Time 14.1 Prothrombin Time Ratio 1.1 Red Blood Count 3.90 L Red Cell Distribution Width 13.7 Sodium Level 136 Thyroid Stimulating Hormone (TSH) 5.050 H Uric Acid 2.8 L White Blood Count 6.2 # Test 10/28/16 07:59 Bedside Glucose 86 Medications Medications Current Medications Zolpidem Tartrate (Ambien) 5 mg HS PRN PO INSOMNIA Last administered on 22:29; Admin Dose 5 MG; Start 10/22/16 at 22:30 Docusate Sodium (Colace) 100 mg BID PO Last administered on 10/28/16 08:23; Admin Dose 100 MG; Start 10/22/16 at 23:30 Ondansetron HCl (Zofran Inj) 4 mg Q6H PRN IV NAUSEA AND/OR VOMITING Last administered on 10/23/16at 14:42; Admin Dose 4 MG; Start 10/22/16 at 23:30 Acetaminophen (Tylenol Tab) 650 mg Q6H PRN PO PAIN AND OR ELEVATED TEMP; Start 10/22/16 at 23:30 Pantoprazole (Protonix Iv) 40 mg DAILY@06 IV Last administered on 10/28/16 06: 09; Admin Dose 40 MG; Start 10/23/16 at 06:00 Diagnostic Test (Pha) 1 ea 1 ea 02 XX Last administered on 10/28/16 02:14; Admin Dose 1 EA; Start 10/23/16 at 02:00 Sodium Chloride (NS) 1,000 ml @ 80 mls/hr [id number] IV Last administered on 01:10; Admin Dose 80 MLS/HR; Start 10/22/16 at 23:30 Miscellaneous Information 1 ea NOTE XX ; Start 10/22/16 at 23:30 Glucose (Glutose) 15 gm Q15M PRN PO DECREASED GLUCOSE; Start 10/22/16 at 23:30 Glucose (Glutose) 22.5 gm Q15M PRN PO DECREASED GLUCOSE; Start 10/22/16 at 23: 30 Dextrose (D50w Syringe) 25 ml Q15M PRN IV DECREASED GLUCOSE; Start 10/22/16 at 23:30 Dextrose (D50w Syringe) 50 ml Q15M PRN IV DECREASED GLUCOSE; Start 10/22/16 at 23:30 Glucagon (Glucagen) 1 mg Q15M PRN IM DECREASED GLUCOSE; Start 10/22/16 at 23: 30 Glucose (Glutose) 15 gm Q15M PRN BUCCAL DECREASED GLUCOSE; Start 10/22/16 at 23:30 Metoclopramide HCl (Reglan) 10 mg Q6 IV Last administered on 10/28/16 06:09; Admin Dose 10 MG; Start 10/23/16 at 14:30 Allopurinol 300 mg 300 mg DAILY PO Last administered on 10/28/16 08:23; Admin Dose 300 MG; Start 10/26/16 at 09:00 Ondansetron HCl/ Dextrose (Zofran Inj/D5W) 54 ml @ 108 mls/hr Q6H PRN IV NAUSEA AND/OR VOMITING; Start 10/26/16 at 14:00 Diphenhydramine HCl (Benadryl) 25 mg Q6H PRN IV ALLERGIC REACTION; Start 10/26 at 14:00 Dexamethasone (Decadron) 8 mg ONCE PRN IV ALLERGIC REACTION; Start 10/26/16 at 15:00; Stop 01/24/17 at 14:59 Prednisone 50 mg 50 mg DAILY PO Last administered on 10/28/16 08:23; Admin Dose 50 MG; Start 10/26/16 at 21:00; Stop 10/30/16 at 09:01 Famotidine 20 mg/ Ondansetron HCl 16 mg/Sodium Chloride 60 ml @ 120 mls/hr 15 IV Last administered on 10/27/16 14:46; Admin Dose 120 MLS/HR; Start 10/27/16 at 15:00; Stop 10/31/16 at 15:29 Etoposide 83 mg/ Sodium Chloride 500 ml @ 21 mls/hr 16 IV Last administered on 10/27/16 15:43; Admin Dose 21 MLS/HR; Start 10/27/16 at 16:00; Stop 10/31/16 at 15:49 Doxorubicin HCl 17 mg/Vincristine Sulfate 0.5 mg/ Sodium Chloride 500 ml @ 21 mls/hr 16 IV Last administered on 10/27/16 17:36; Admin Dose 21 MLS/HR; Start 10/27/16 at 16:00; Stop 10/31/16 at 15:49 Cyclophosphamide/ Cyclophosphamide/ Sodium Chloride (Cytoxan/Cytoxan/ NS) 250 ml @ 1,000 mls/hr 16 IV ; Start 10/31/16 at 16:00; Stop 10/31/16 at 16:14 Filgrastim (Neupogen) 300 mcg DAILY@17 SC ; Start 11/01/16 at 17:00 Trimethoprim/ Sulfamethoxazole (Bactrim (Ds)) 1 tab BID PO Last administered on 10/28/16 08:23; Admin Dose 1 TAB; Start 10/27/16 at 14:00 NICK GRAHAM MD Oct 28, 2016 12:10
[2016-10-28] MEDS: FAMOTIDINE IV SCH (15:59)
[2016-10-28] MEDS: ONDANSETRON IV SCH (15:59)
[2016-10-28] MEDS: SOD CHLORIDE 0.9% IV SCH ×3 (15:59→17:58)
[2016-10-28] MEDS: ETOPOSIDE IV SCH (16:36)
[2016-10-28] MEDS: VINCRISTINE IV SCH (17:58)
[2016-10-28] MEDS: DOXORUBICIN IV SCH (17:58)
[2016-10-29] MEDS: ACCUCHECK XX SCH (02:34)
[2016-10-29] MEDS: SOD CHLORIDE 0.9% 1,000 ML IV SCH ×2 (02:42→15:42)
[2016-10-29] MEDS: PANTOPRAZOLE 40 MG INJ IV SCH (05:15)
[2016-10-29] MEDS: METOCLOPRAMIDE 10 MG INJ IV SCH ×4 (05:15→23:42)
[2016-10-29 05:32] LABS: URIC ACID 2.5 mg/dl (3.1-7.9)
[2016-10-29] MEDS: INSULIN ASPART [NOVOLOG] 3 ML PEN SC SCH ×4 (07:47→20:26)
[2016-10-29 07:50] VITALS: BP 118/54; RESP 18
[2016-10-29] MEDS: DOCUSATE SODIUM 100 MG CAP PO SCH ×2 (08:11→20:25)
[2016-10-29] MEDS: predniSONE 50 MG TAB PO SCH (08:11)
[2016-10-29] MEDS: TRIMETHOPRIM/SULFAMETHOX (DS) TAB PO SCH (08:11)
[2016-10-29] MEDS: ALLOPURINOL 300 MG TAB PO SCH (08:11)
--- NOTE | 2016-10-29 14:58 | CONS ---
Date/Time of Note Date/Time of Note DATE: 10/29/16 TIME: 14:53 Assessment/Plan Assessment/Plan Chief Complaint/Hosp Course The patient is a 61 year old male with recent diagnosis of gastric lymphoma in [place], with nausea and vomiting due to gastric outlet obstruction. 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 THe lymphoma has a Ki 67 high at 95%. BCL2 and BCL6 positive, FISH pending for BCL2, BCL6 and Myc. Given double expression of BCL2 and BCL6, pt has been started on R-EPOCH chemotherapy until FISH results return. Problems: (1) Gastric lymphoma Status: Acute Additional Assessment/Plan -continue with chemotherapy, day 4 today Rituximab 375 mg IV D1 Etoposide 50 mg/m2 IV over 24 hours D1-4 Doxorubicin 10 mg/m2 IV over 24 hours D1-4 Vincristine 0.4 mg/m2 IV over 24 hours D1-4 Cyclophosphamide 750 mg/m2 IV over 15 minutes D5 Prednisone 60 mg/m2 PO D1-5 - Patient will need neupogen 300 mcg starting D6 - s/p port placement 10/25/16 - Check LDH, uric acid daily to monitor for tumor lysis, so far ok with LDH 444 and uric acid 3.5, will continue allopurinol with chemotherapy as tumor lysis prophylaxis - TTE shows normal EF. HIV, hepatitis panel negative - bone marrow bx scheduled for tomorrow Approximately 40 min were spent at patient's bedside and in coordination of his care Consultation Date/Type/Reason Admit Date/Time Oct 22, 2016 at 19:46 Initial Consult Date 10/24/16 Type of Consultation: Hematology Reason for Consultation lymphoma Referring Provider: POOJA VILLA 24 HR Interval Summary Free Text/Dictation pt is tolerating chemotherapy well. currently no complaints. ate this morning and so will get bone marrow bx tomorrow am Exam/Review of Systems Vital Signs Vitals Vital Signs Date Time Temp Pulse Resp B/P Pulse Ox O2 Delivery O2 Flow Rate FiO2 10/29/16 07:50 97.9 66 18 118/54 97 10/28/16 18:35 Room Air Intake and Output 10/28/16 10/28/16 10/29/16 15:00 23:00 07:00 Intake Total 2264 ml 2064 ml Output Total 1650 ml 300 ml Balance 614 ml 1764 ml Exam Constitutional: alert, oriented Psych: nl mood/affect, no complaints Head: atraumatic, normocephalic Eyes: nl conjunctiva ENMT: nl external ears & nose Neck: non-tender, supple Respiratory: clear to auscultation, normal air movement Cardiovascular: nl pulses, regular rate and rhythm Gastrointestinal: soft Musculoskeletal: nl extremities to inspection, nl gait and stance Results Result Diagram: 10/28/16 0442 10/28/16 0442 Results 24 hrs Laboratory Tests Test 10/28/16 17:09 10/28/16 20:58 10/29/16 01:52 10/29/16 04:41 Bedside Glucose 218 200 121 Lactate Dehydrogenase 950 H Uric Acid 2.5 L Test 10/29/16 07:31 10/29/16 12:07 Bedside Glucose 115 171 Medications Medications Current Medications Zolpidem Tartrate (Ambien) 5 mg HS PRN PO INSOMNIA Last administered on 22:29; Admin Dose 5 MG; Start 10/22/16 at 22:30 Docusate Sodium (Colace) 100 mg BID PO Last administered on 10/29/16 08:11; Admin Dose 100 MG; Start 10/22/16 at 23:30 Ondansetron HCl (Zofran Inj) 4 mg Q6H PRN IV NAUSEA AND/OR VOMITING Last administered on 10/23/16at 14:42; Admin Dose 4 MG; Start 10/22/16 at 23:30 Acetaminophen (Tylenol Tab) 650 mg Q6H PRN PO PAIN AND OR ELEVATED TEMP; Start 10/22/16 at 23:30 Pantoprazole (Protonix Iv) 40 mg DAILY@06 IV Last administered on 10/29/16 05: 15; Admin Dose 40 MG; Start 10/23/16 at 06:00 Diagnostic Test (Pha) 1 ea 1 ea 02 XX Last administered on 10/29/16 02:34; Admin Dose 1 EA; Start 10/23/16 at 02:00 Sodium Chloride (NS) 1,000 ml @ 80 mls/hr [id number] IV Last administered on 02:42; Admin Dose 80 MLS/HR; Start 10/22/16 at 23:30 Miscellaneous Information 1 ea NOTE XX ; Start 10/22/16 at 23:30 Glucose (Glutose) 15 gm Q15M PRN PO DECREASED GLUCOSE; Start 10/22/16 at 23:30 Glucose (Glutose) 22.5 gm Q15M PRN PO DECREASED GLUCOSE; Start 10/22/16 at 23: 30 Dextrose (D50w Syringe) 25 ml Q15M PRN IV DECREASED GLUCOSE; Start 10/22/16 at 23:30 Dextrose (D50w Syringe) 50 ml Q15M PRN IV DECREASED GLUCOSE; Start 10/22/16 at 23:30 Glucagon (Glucagen) 1 mg Q15M PRN IM DECREASED GLUCOSE; Start 10/22/16 at 23: 30 Glucose (Glutose) 15 gm Q15M PRN BUCCAL DECREASED GLUCOSE; Start 10/22/16 at 23:30 Metoclopramide HCl (Reglan) 10 mg Q6 IV Last administered on 10/29/16 12:44; Admin Dose 10 MG; Start 10/23/16 at 14:30 Allopurinol 300 mg 300 mg DAILY PO Last administered on 10/29/16 08:11; Admin Dose 300 MG; Start 10/26/16 at 09:00 Ondansetron HCl/ Dextrose (Zofran Inj/D5W) 54 ml @ 108 mls/hr Q6H PRN IV NAUSEA AND/OR VOMITING; Start 10/26/16 at 14:00 Diphenhydramine HCl (Benadryl) 25 mg Q6H PRN IV ALLERGIC REACTION; Start 10/26 at 14:00 Dexamethasone (Decadron) 8 mg ONCE PRN IV ALLERGIC REACTION; Start 10/26/16 at 15:00; Stop 01/24/17 at 14:59 Prednisone 50 mg 50 mg DAILY PO Last administered on 10/29/16 08:11; Admin Dose 50 MG; Start 10/26/16 at 21:00; Stop 10/30/16 at 09:01 Famotidine 20 mg/ Ondansetron HCl 16 mg/Sodium Chloride 60 ml @ 120 mls/hr 15 IV Last administered on 10/28/16 15:59; Admin Dose 120 MLS/HR; Start 10/27/16 at 15:00; Stop 10/31/16 at 15:29 Etoposide 83 mg/ Sodium Chloride 500 ml @ 21 mls/hr 16 IV Last administered on 10/28/16 16:36; Admin Dose 21 MLS/HR; Start 10/27/16 at 16:00; Stop 10/31/16 at 15:49 Doxorubicin HCl 17 mg/Vincristine Sulfate 0.5 mg/ Sodium Chloride 500 ml @ 21 mls/hr 16 IV Last administered on 10/28/16 17:58; Admin Dose 21 MLS/HR; Start 10/27/16 at 16:00; Stop 10/31/16 at 15:49 Cyclophosphamide/ Cyclophosphamide/ Sodium Chloride (Cytoxan/Cytoxan/ NS) 250 ml @ 1,000 mls/hr 16 IV ; Start 10/31/16 at 16:00; Stop 10/31/16 at 16:14 Filgrastim (Neupogen) 300 mcg DAILY@17 SC ; Start 11/01/16 at 17:00 Trimethoprim/ Sulfamethoxazole (Bactrim (Ds)) 1 tab BID PO Last administered on 10/29/16 08:11; Admin Dose 1 TAB; Start 10/27/16 at 14:00 GERMANIA QUIÑONES M.D. Oct 29, 2016 14:58
--- NOTE | 2016-10-29 16:34 | CONS ---
Date/Time of Note Date/Time of Note DATE: 10/29/16 TIME: 16:31 Assessment/Plan Assessment/Plan Additional Assessment/Plan Persistent nausea and vomiting 2/2 to gastric outlet obstruction * Known gastric mass, diagnosed lymphoma in [place] * Unresectable large distal gastric proximal intestinal mass with significant lymphadenopathy * There would be no benefit to stenting the gastric outlet obstruction as the patient has a patent gastrojejunostomy which is much wider than what a stent may accomplish without significant difficulties that it may entail. Oncology following. 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 Rojas Consultation Date/Type/Reason Admit Date/Time Oct 22, 2016 at 19:46 Initial Consult Date 10/24/16 Type of Consultation: Gastroenterology Reason for Consultation Nausea, Referring Provider: POOJA VILLA 24 HR Interval Summary Free Text/Dictation Final pathology pending Patient denies any nausea vomiting or abdominal pain Patient tolerating p.o. intake Exam/Review of Systems Vital Signs Vitals Vital Signs Date Time Temp Pulse Resp B/P Pulse Ox O2 Delivery O2 Flow Rate FiO2 10/29/16 07:50 97.9 66 18 118/54 97 10/28/16 18:35 Room Air Intake and Output 10/28/16 10/28/16 10/29/16 15:00 23:00 07:00 Intake Total 2264 ml 2064 ml Output Total 1650 ml 300 ml Balance 614 ml 1764 ml Exam Constitutional: alert, oriented, well developed Psych: nl mood/affect, no complaints Head: atraumatic, normocephalic Eyes: EOMI, nl conjunctiva, nl lids, nl sclera ENMT: mucosa pink and moist, nl external ears & nose, nl lips & teeth, nl nasal mucosa & septum Neck: non-tender, supple Respiratory: clear to auscultation, normal air movement Cardiovascular: nl pulses, regular rate and rhythm Gastrointestinal: bowel sounds, non-tender, soft Results Result Diagram: 10/28/16 0442 10/28/162 Results 24 hrs Laboratory Tests Test 10/28/16 17:09 10/28/16 20:58 10/29/16 01:52 10/29/16 04:41 Bedside Glucose 218 200 121 Lactate Dehydrogenase 950 H Uric Acid 2.5 L Test 10/29/16 07:31 10/29/16 12:07 Bedside Glucose 115 171 Medications Medications Current Medications Zolpidem Tartrate (Ambien) 5 mg HS PRN PO INSOMNIA Last administered on 22:29; Admin Dose 5 MG; Start 10/22/16 at 22:30 Docusate Sodium (Colace) 100 mg BID PO Last administered on 10/29/16 08:11; Admin Dose 100 MG; Start 10/22/16 at 23:30 Ondansetron HCl (Zofran Inj) 4 mg Q6H PRN IV NAUSEA AND/OR VOMITING Last administered on 10/23/16at 14:42; Admin Dose 4 MG; Start 10/22/16 at 23:30 Acetaminophen (Tylenol Tab) 650 mg Q6H PRN PO PAIN AND OR ELEVATED TEMP; Start 10/22/16 at 23:30 Pantoprazole (Protonix Iv) 40 mg DAILY@06 IV Last administered on 10/29/16 05: 15; Admin Dose 40 MG; Start 10/23/16 at 06:00 Diagnostic Test (Pha) 1 ea 1 ea 02 XX Last administered on 10/29/16 02:34; Admin Dose 1 EA; Start 10/23/16 at 02:00 Sodium Chloride (NS) 1,000 ml @ 80 mls/hr [id number] IV Last administered on 15:42; Admin Dose 80 MLS/HR; Start 10/22/16 at 23:30 Miscellaneous Information 1 ea NOTE XX ; Start 10/22/16 at 23:30 Glucose (Glutose) 15 gm Q15M PRN PO DECREASED GLUCOSE; Start 10/22/16 at 23:30 Glucose (Glutose) 22.5 gm Q15M PRN PO DECREASED GLUCOSE; Start 10/22/16 at 23: 30 Dextrose (D50w Syringe) 25 ml Q15M PRN IV DECREASED GLUCOSE; Start 10/22/16 at 23:30 Dextrose (D50w Syringe) 50 ml Q15M PRN IV DECREASED GLUCOSE; Start 10/22/16 at 23:30 Glucagon (Glucagen) 1 mg Q15M PRN IM DECREASED GLUCOSE; Start 10/22/16 at 23: 30 Glucose (Glutose) 15 gm Q15M PRN BUCCAL DECREASED GLUCOSE; Start 10/22/16 at 23:30 Metoclopramide HCl (Reglan) 10 mg Q6 IV Last administered on 10/29/16 12:44; Admin Dose 10 MG; Start 10/23/16 at 14:30 Allopurinol 300 mg 300 mg DAILY PO Last administered on 10/29/16 08:11; Admin Dose 300 MG; Start 10/26/16 at 09:00 Ondansetron HCl/ Dextrose (Zofran Inj/D5W) 54 ml @ 108 mls/hr Q6H PRN IV NAUSEA AND/OR VOMITING; Start 10/26/16 at 14:00 Diphenhydramine HCl (Benadryl) 25 mg Q6H PRN IV ALLERGIC REACTION; Start 10/26 at 14:00 Dexamethasone (Decadron) 8 mg ONCE PRN IV ALLERGIC REACTION; Start 10/26/16 at 15:00; Stop 01/24/17 at 14:59 Prednisone 50 mg 50 mg DAILY PO Last administered on 10/29/16 08:11; Admin Dose 50 MG; Start 10/26/16 at 21:00; Stop 10/30/16 at 09:01 Famotidine 20 mg/ Ondansetron HCl 16 mg/Sodium Chloride 60 ml @ 120 mls/hr 15 IV Last administered on 10/28/16 15:59; Admin Dose 120 MLS/HR; Start 10/27/16 at 15:00; Stop 10/31/16 at 15:29 Etoposide 83 mg/ Sodium Chloride 500 ml @ 21 mls/hr 16 IV Last administered on 10/28/16 16:36; Admin Dose 21 MLS/HR; Start 10/27/16 at 16:00; Stop 10/31/16 at 15:49 Doxorubicin HCl 17 mg/Vincristine Sulfate 0.5 mg/ Sodium Chloride 500 ml @ 21 mls/hr 16 IV Last administered on 10/28/16 17:58; Admin Dose 21 MLS/HR; Start 10/27/16 at 16:00; Stop 10/31/16 at 15:49 Cyclophosphamide/ Cyclophosphamide/ Sodium Chloride (Cytoxan/Cytoxan/ NS) 250 ml @ 1,000 mls/hr 16 IV ; Start 1/5/17 at 16:00; Stop 10/31/16 at 16:14 Filgrastim (Neupogen) 300 mcg DAILY@17 SC ; Start 11/01/16 at 17:00 Trimethoprim/ Sulfamethoxazole (Bactrim (Ds)) 1 tab TuThSa@09 PO ; Start at 09:00 [place] Oct 29, 2016 16:34
[2016-10-29 16:38] VITALS: BP 114/55; PULSE 68; RESP 18
--- NOTE | 2016-10-29 19:40 | PN ---
Date/Time of Note Date/Time of Note DATE: 10/29/16 TIME: 19:39 Assessment/Plan VTE Prophylaxis VTE Prophylaxis Intervention: SCD's Lines/Catheters IV [facility]from [facility] Peripheral IV Urinary Cath still in place: No Assessment/Plan Assessment/Plan Assessment/Plan 1. 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 Tumor unresectable - s/p EGD with multiple biopsies on 10/23, pathology DLBCL. Stenting felt unnecessary as pt with patent gastrojejunostomy - staging CT chest showed stable bulky retroperitoneal and gastrohepatic lymphadenopathy - Possible bone marrow bx sometime this week - Chemo per Oncology 2. Intractable N/V: 2/2 above: per pt and family, symptom completely resolved with current anti-emetics. Will continue 3. Diabetes: A1C 6.8: diet controlled. PRN insulin while in house DVT/GI Ppx: SCDs and PPI Subjective 24 Hr Interval Summary Free Text/Dictation no pain, N/V Exam/Review of Systems Vital Signs Vitals Vital Signs Date Time Temp Pulse Resp B/P Pulse Ox O2 Delivery O2 Flow Rate FiO2 10/29/16 16:38 98.1 68 18 114/55 97 Room Air Intake and Output 10/28/16 10/28/16 10/29/16 15:00 23:00 07:00 Intake Total 2264 ml 2064 ml Output Total 1650 ml 300 ml Balance 614 ml 1764 ml Exam Constitutional: alert, oriented Head: atraumatic, normocephalic Neck: non-tender, supple Respiratory: clear to auscultation, normal air movement Cardiovascular: nl pulses, regular rate and rhythm Gastrointestinal: other (minimal tenderness to deep palpation in RLQ), soft Extremities: normal pulses Results Result Diagram: 10/28/162 10/28/162 Results 24 hrs Laboratory Tests Test 10/28/16 20:58 10/29/16 01:52 10/29/16 04:41 10/29/16 07:31 Bedside Glucose 200 121 115 Lactate Dehydrogenase 950 H Uric Acid 2.5 L Test 10/29/16 12:07 10/29/16 17:20 Bedside Glucose 171 222 H Medications Medications Current Medications Zolpidem Tartrate (Ambien) 5 mg HS PRN PO INSOMNIA Last administered on t 22:29; Admin Dose 5 MG; Start 10/22/16 at 22:30 Docusate Sodium (Colace) 100 mg BID PO Last administered on 10/29/16 08:11; Admin Dose 100 MG; Start 10/22/16 at 23:30 Ondansetron HCl (Zofran Inj) 4 mg Q6H PRN IV NAUSEA AND/OR VOMITING Last administered on 10/23/16at 14:42; Admin Dose 4 MG; Start 10/22/16 at 23:30 Acetaminophen (Tylenol Tab) 650 mg Q6H PRN PO PAIN AND OR ELEVATED TEMP; Start 10/22/16 at 23:30 Pantoprazole (Protonix Iv) 40 mg DAILY@06 IV Last administered on 10/29/16 05: 15; Admin Dose 40 MG; Start 10/23/16 at 06:00 Diagnostic Test (Pha) 1 ea 1 ea 02 XX Last administered on 10/29/16 02:34; Admin Dose 1 EA; Start 10/23/16 at 02:00 Sodium Chloride (NS) 1,000 ml @ 80 mls/hr [id number] IV Last administered on 15:42; Admin Dose 80 MLS/HR; Start 10/22/16 at 23:30 Miscellaneous Information 1 ea NOTE XX ; Start 10/22/16 at 23:30 Glucose (Glutose) 15 gm Q15M PRN PO DECREASED GLUCOSE; Start 10/22/16 at 23:30 Glucose (Glutose) 22.5 gm Q15M PRN PO DECREASED GLUCOSE; Start 10/22/16 at 23: 30 Dextrose (D50w Syringe) 25 ml Q15M PRN IV DECREASED GLUCOSE; Start 10/22/16 at 23:30 Dextrose (D50w Syringe) 50 ml Q15M PRN IV DECREASED GLUCOSE; Start 10/22/16 at 23:30 Glucagon (Glucagen) 1 mg Q15M PRN IM DECREASED GLUCOSE; Start 10/22/16 at 23: 30 Glucose (Glutose) 15 gm Q15M PRN BUCCAL DECREASED GLUCOSE; Start 10/22/16 at 23:30 Metoclopramide HCl (Reglan) 10 mg Q6 IV Last administered on 10/29/16 17:45; Admin Dose 10 MG; Start 10/23/16 at 14:30 Allopurinol 300 mg 300 mg DAILY PO Last administered on 10/29/16 08:11; Admin Dose 300 MG; Start 10/26/16 at 09:00 Ondansetron HCl/ Dextrose (Zofran Inj/D5W) 54 ml @ 108 mls/hr Q6H PRN IV NAUSEA AND/OR VOMITING; Start 10/26/16 at 14:00 Diphenhydramine HCl (Benadryl) 25 mg Q6H PRN IV ALLERGIC REACTION; Start 10/26 at 14:00 Dexamethasone (Decadron) 8 mg ONCE PRN IV ALLERGIC REACTION; Start 10/26/16 at 15:00; Stop 01/24/17 at 14:59 Prednisone 50 mg 50 mg DAILY PO Last administered on 10/29/16 08:11; Admin Dose 50 MG; Start 10/26/16 at 21:00; Stop 10/30/16 at 09:01 Famotidine 20 mg/ Ondansetron HCl 16 mg/Sodium Chloride 60 ml @ 120 mls/hr 15 IV Last administered on 10/28/16 15:59; Admin Dose 120 MLS/HR; Start 10/27/16 at 15:00; Stop 10/31/16 at 15:29 Etoposide 83 mg/ Sodium Chloride 500 ml @ 21 mls/hr 16 IV Last administered on 10/28/16 16:36; Admin Dose 21 MLS/HR; Start 10/27/16 at 16:00; Stop 10/31/16 at 15:49 Doxorubicin HCl 17 mg/Vincristine Sulfate 0.5 mg/ Sodium Chloride 500 ml @ 21 mls/hr 16 IV Last administered on 10/28/16 17:58; Admin Dose 21 MLS/HR; Start 10/27/16 at 16:00; Stop 10/31/16 at 15:49 Cyclophosphamide/ Cyclophosphamide/ Sodium Chloride (Cytoxan/Cytoxan/ NS) 250 ml @ 1,000 mls/hr 16 IV ; Start 10/31/16 at 16:00; Stop 10/31/16 at 16:14 Filgrastim (Neupogen) 300 mcg DAILY@17 SC ; Start 11/01/16 at 17:00 Trimethoprim/ Sulfamethoxazole (Bactrim (Ds)) 1 tab TuThSa@09 PO ; Start at 09:00 NICK GRAHAM MD Oct 29, 2016 19:40
[2016-10-29 20:32] VITALS: BP 105/55; PULSE 68; RESP 18
[2016-10-29] MEDS: ONDANSETRON IV SCH (21:31)
[2016-10-29] MEDS: FAMOTIDINE IV SCH (21:31)
[2016-10-29] MEDS: SOD CHLORIDE 0.9% IV SCH ×3 (21:31→21:57)
[2016-10-29] MEDS: ETOPOSIDE IV SCH (21:57)
[2016-10-29] MEDS: VINCRISTINE IV SCH (21:57)
[2016-10-29] MEDS: DOXORUBICIN IV SCH (21:57)
[2016-10-29 22:17] VITALS: BP 100/54; PULSE 62; RESP 18
[2016-10-29 23:52] VITALS: BP 120/60; PULSE 62; RESP 18
[2016-10-30] VITALS (15 sets, daily range): BP systolic 100–142; BP diastolic 55–74; PULSE 54–77; RESP 15–19
[2016-10-30] MEDS: ACCUCHECK XX SCH (01:25)
[2016-10-30] MEDS: SOD CHLORIDE 0.9% 1,000 ML IV SCH ×2 (05:09→18:15)
[2016-10-30] MEDS: PANTOPRAZOLE 40 MG INJ IV SCH (05:09)
[2016-10-30] MEDS: METOCLOPRAMIDE 10 MG INJ IV SCH ×3 (05:09→17:41)
[2016-10-30 06:28] LABS: URIC ACID 2.3 mg/dl (3.1-7.9)
[2016-10-30] MEDS: INSULIN ASPART [NOVOLOG] 3 ML PEN SC SCH ×4 (07:50→21:00)
[2016-10-30] MEDS: predniSONE 50 MG TAB PO SCH (09:12)
[2016-10-30] MEDS: DOCUSATE SODIUM 100 MG CAP PO SCH ×2 (09:12→22:10)
[2016-10-30] MEDS: ALLOPURINOL 300 MG TAB PO SCH (09:12)
--- NOTE | 2016-10-30 13:07 | PN ---
Date/Time of Note Date/Time of Note DATE: 10/30/16 TIME: 13:05 Assessment/Plan VTE Prophylaxis VTE Prophylaxis Intervention: SCD's Lines/Catheters [facility] Central Line Central line still needed: Yes Urinary Cath still in place: No Assessment/Plan Assessment/Plan 1. 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 Tumor unresectable - s/p EGD with multiple biopsies on 10/23, pathology DLBCL. Stenting felt unnecessary as pt with patent gastrojejunostomy - staging CT chest showed stable bulky retroperitoneal and gastrohepatic lymphadenopathy - bone marrow bx today - Chemo per Oncology 2. Intractable N/V: 2/2 above: per pt and family, symptom completely resolved with current anti-emetics. Will continue 3. Diabetes: A1C 6.8: diet controlled. PRN insulin while in house DVT/GI Ppx: SCDs and PPI Subjective 24 Hr Interval Summary Free Text/Dictation Pt feeling well. awaiting bone marrow bx Exam/Review of Systems Vital Signs Vitals Vital Signs Date Time Temp Pulse Resp B/P Pulse Ox O2 Delivery O2 Flow Rate FiO2 10/30/16 11:58 98.0 66 16 135/62 98 Room Air 10/29/16 21:10 2 Intake and Output 10/29/16 10/29/16 10/30/16 15:00 23:00 07:00 Intake Total 2724 ml 1888 ml Output Total 1200 ml Balance 2724 ml 688 ml Exam Constitutional: alert, oriented Head: atraumatic, normocephalic Neck: non-tender, supple Respiratory: clear to auscultation, normal air movement Cardiovascular: nl pulses, regular rate and rhythm Gastrointestinal: other (minimal tenderness to deep palpation in RLQ), soft Extremities: normal pulses Results Result Diagram: 10/28/1644110/28/162 Results 24 hrs Laboratory Tests Test 10/29/16 17:20 10/29/16 20:23 10/30/16 01:19 10/30/16 04:28 Bedside Glucose 222 H 226 H 147 Lactate Dehydrogenase 842 H Uric Acid 2.3 L Test 10/30/16 08:07 10/30/16 11:56 Bedside Glucose 104 151 Medications Medications Current Medications Zolpidem Tartrate (Ambien) 5 mg HS PRN PO INSOMNIA Last administered on 22:29; Admin Dose 5 MG; Start 10/22/16 at 22:30 Docusate Sodium (Colace) 100 mg BID PO Last administered on 10/30/16 09:12; Admin Dose 100 MG; Start 10/22/16 at 23:30 Ondansetron HCl (Zofran Inj) 4 mg Q6H PRN IV NAUSEA AND/OR VOMITING Last administered on 10/23/16at 14:42; Admin Dose 4 MG; Start 10/22/16 at 23:30 Acetaminophen (Tylenol Tab) 650 mg Q6H PRN PO PAIN AND OR ELEVATED TEMP; Start 10/22/16 at 23:30 Pantoprazole (Protonix Iv) 40 mg DAILY@06 IV Last administered on 10/30/16 05: 09; Admin Dose 40 MG; Start 10/23/16 at 06:00 Diagnostic Test (Pha) 1 ea 1 ea 02 XX Last administered on 10/30/16 01:25; Admin Dose 1 EA; Start 10/23/16 at 02:00 Sodium Chloride (NS) 1,000 ml @ 80 mls/hr [id number] IV Last administered on 05:09; Admin Dose 80 MLS/HR; Start 10/22/16 at 23:30 Miscellaneous Information 1 ea NOTE XX ; Start 10/22/16 at 23:30 Glucose (Glutose) 15 gm Q15M PRN PO DECREASED GLUCOSE; Start 10/22/16 at 23:30 Glucose (Glutose) 22.5 gm Q15M PRN PO DECREASED GLUCOSE; Start 10/22/16 at 23: 30 Dextrose (D50w Syringe) 25 ml Q15M PRN IV DECREASED GLUCOSE; Start 10/22/16 at 23:30 Dextrose (D50w Syringe) 50 ml Q15M PRN IV DECREASED GLUCOSE; Start 10/22/16 at 23:30 Glucagon (Glucagen) 1 mg Q15M PRN IM DECREASED GLUCOSE; Start 10/22/16 at 23: 30 Glucose (Glutose) 15 gm Q15M PRN BUCCAL DECREASED GLUCOSE; Start 10/22/16 at 23:30 Metoclopramide HCl (Reglan) 10 mg Q6 IV Last administered on 10/30/16 12:15; Admin Dose 10 MG; Start 10/23/16 at 14:30 Allopurinol 300 mg 300 mg DAILY PO Last administered on 10/30/16 09:12; Admin Dose 300 MG; Start 10/26/16 at 09:00 Ondansetron HCl/ Dextrose (Zofran Inj/D5W) 54 ml @ 108 mls/hr Q6H PRN IV NAUSEA AND/OR VOMITING; Start 10/26/16 at 14:00 Diphenhydramine HCl (Benadryl) 25 mg Q6H PRN IV ALLERGIC REACTION; Start 10/26 at 14:00 Dexamethasone 8 mg 8 mg ONCE PRN IV ALLERGIC REACTION; Start 10/26/16 at 15:00 ; Stop 01/24/17 at 14:59 Famotidine 20 mg/ Ondansetron HCl 16 mg/Sodium Chloride 60 ml @ 120 mls/hr 15 IV Last administered on 10/29/16 21:31; Admin Dose 120 MLS/HR; Start 10/27/16 at 15:00; Stop 10/31/16 at 15:29 Etoposide 83 mg/ Sodium Chloride 500 ml @ 21 mls/hr 16 IV Last administered on 10/29/16 21:57; Admin Dose 21 MLS/HR; Start 10/27/16 at 16:00; Stop 10/31/16 at 15:49 Doxorubicin HCl 17 mg/Vincristine Sulfate 0.5 mg/ Sodium Chloride 500 ml @ 21 mls/hr 16 IV Last administered on 10/29/16 21:57; Admin Dose 21 MLS/HR; Start 10/27/16 at 16:00; Stop 10/31/16 at 15:49 Cyclophosphamide/ Cyclophosphamide/ Sodium Chloride (Cytoxan/Cytoxan/ NS) 250 ml @ 1,000 mls/hr 16 IV ; Start 10/31/16 at 16:00; Stop 10/31/16 at 16:14 Filgrastim (Neupogen) 300 mcg DAILY@17 SC ; Start 11/01/16 at 17:00 Trimethoprim/ Sulfamethoxazole (Bactrim (Ds)) 1 tab TuThSa@09 PO ; Start at 09:00 NICK GRAHAM MD Oct 30, 2016 13:07
[2016-10-30] MEDS ORDERED: LIDOCAINE 1% (MDV) 20 ML INJ ONE (13:40)
[2016-10-30] MEDS ORDERED: MIDAZOLAM 1 MG/ML 2 ML INJ ONE (13:41)
[2016-10-30] MEDS ORDERED: SOD CHLORIDE 0.9% 500 ML ONE (13:41)
[2016-10-30] MEDS ORDERED: FENTAnyl 50 MCG/ML VIAL ONE (13:41)
--- NOTE | 2016-10-30 14:57 | CONS ---
Date/Time of Note Date/Time of Note DATE: 10/30/16 TIME: 14:56 Assessment/Plan Assessment/Plan Chief Complaint/Hosp Course The patient is a 61 year old male with recent diagnosis of gastric lymphoma in [place], with nausea and vomiting due to gastric outlet obstruction. 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 THe lymphoma has a Ki 67 high at 95%. BCL2 and BCL6 positive, FISH pending for BCL2, BCL6 and Myc. Given double expression of BCL2 and BCL6, pt has been started on R-EPOCH chemotherapy until FISH results return. Problems: (1) Gastric lymphoma Status: Acute Additional Assessment/Plan -continue with chemotherapy, day 4 today Rituximab 375 mg IV D1 Etoposide 50 mg/m2 IV over 24 hours D1-4 Doxorubicin 10 mg/m2 IV over 24 hours D1-4 Vincristine 0.4 mg/m2 IV over 24 hours D1-4 Cyclophosphamide 750 mg/m2 IV over 15 minutes D5 Prednisone 60 mg/m2 PO D1-5 - Patient will need neupogen 300 mcg starting D6 - s/p port placement 10/25/16 - Check LDH, uric acid daily to monitor for tumor lysis, will continue allopurinol with chemotherapy as tumor lysis prophylaxis - TTE shows normal EF. HIV, hepatitis panel negative - bone marrow bx performed today, will follow up results - will place case management order for patient to follow up with Dr. Stephanie Leblanc upon discharge Problems: Consultation Date/Type/Reason Admit Date/Time Oct 22, 2016 at 19:46 Initial Consult Date 10/24/16 Type of Consultation: Hematology/Oncology Referring Provider: POOJA VILLA 24 HR Interval Summary Free Text/Dictation Patient had BMBx done today. He started chemo in the evening on 10/26 and reports no side effects, he is doing well. Exam/Review of Systems Vital Signs Vitals Vital Signs Date Time Temp Pulse Resp B/P Pulse Ox O2 Delivery O2 Flow Rate FiO2 10/30/16 11:58 98.0 66 16 135/62 98 Room Air 10/29/16 21:10 2 Intake and Output 10/29/16 10/29/16 10/30/16 15:00 23:00 07:00 Intake Total 2724 ml 1888 ml Output Total 1200 ml Balance 2724 ml 688 ml Exam Constitutional: alert, oriented Psych: nl mood/affect, no complaints Head: atraumatic, normocephalic Eyes: nl conjunctiva ENMT: nl external ears & nose Neck: non-tender, supple Respiratory: clear to auscultation, normal air movement Cardiovascular: nl pulses, regular rate and rhythm Gastrointestinal: soft Musculoskeletal: nl extremities to inspection, nl gait and stance Results Result Diagram: 10/28/16 0442 10/28/16 0442 Results 24 hrs Laboratory Tests Test 10/29/16 17:20 10/29/16 20:23 10/30/16 01:19 10/30/16 04:28 Bedside Glucose 222 H 226 H 147 Lactate Dehydrogenase 842 H Uric Acid 2.3 L Test 10/30/16 08:07 10/30/16 11:56 Bedside Glucose 104 151 Medications Medications Current Medications Zolpidem Tartrate (Ambien) 5 mg HS PRN PO INSOMNIA Last administered on 22:29; Admin Dose 5 MG; Start 10/22/16 at 22:30 Docusate Sodium (Colace) 100 mg BID PO Last administered on 10/30/16 09:12; Admin Dose 100 MG; Start 10/22/16 at 23:30 Ondansetron HCl (Zofran Inj) 4 mg Q6H PRN IV NAUSEA AND/OR VOMITING Last administered on 10/23/16at 14:42; Admin Dose 4 MG; Start 10/22/16 at 23:30 Acetaminophen (Tylenol Tab) 650 mg Q6H PRN PO PAIN AND OR ELEVATED TEMP; Start 10/22/16 at 23:30 Pantoprazole (Protonix Iv) 40 mg DAILY@06 IV Last administered on 10/30/16 05: 09; Admin Dose 40 MG; Start 10/23/16 at 06:00 Diagnostic Test (Pha) 1 ea 1 ea 02 XX Last administered on 10/30/16 01:25; Admin Dose 1 EA; Start 10/23/16 at 02:00 Sodium Chloride (NS) 1,000 ml @ 80 mls/hr [id number] IV Last administered on 05:09; Admin Dose 80 MLS/HR; Start 10/22/16 at 23:30 Miscellaneous Information 1 ea NOTE XX ; Start 10/22/16 at 23:30 Glucose (Glutose) 15 gm Q15M PRN PO DECREASED GLUCOSE; Start 10/22/16 at 23:30 Glucose (Glutose) 22.5 gm Q15M PRN PO DECREASED GLUCOSE; Start 10/22/16 at 23: 30 Dextrose (D50w Syringe) 25 ml Q15M PRN IV DECREASED GLUCOSE; Start 10/22/16 at 23:30 Dextrose (D50w Syringe) 50 ml Q15M PRN IV DECREASED GLUCOSE; Start 10/22/16 at 23:30 Glucagon (Glucagen) 1 mg Q15M PRN IM DECREASED GLUCOSE; Start 10/22/16 at 23: 30 Glucose (Glutose) 15 gm Q15M PRN BUCCAL DECREASED GLUCOSE; Start 10/22/16 at 23:30 Metoclopramide HCl (Reglan) 10 mg Q6 IV Last administered on 10/30/16 12:15; Admin Dose 10 MG; Start 10/23/16 at 14:30 Allopurinol 300 mg 300 mg DAILY PO Last administered on 10/30/16 09:12; Admin Dose 300 MG; Start 10/26/16 at 09:00 Ondansetron HCl/ Dextrose (Zofran Inj/D5W) 54 ml @ 108 mls/hr Q6H PRN IV NAUSEA AND/OR VOMITING; Start 10/26/16 at 14:00 Diphenhydramine HCl (Benadryl) 25 mg Q6H PRN IV ALLERGIC REACTION; Start 10/26 at 14:00 Dexamethasone 8 mg 8 mg ONCE PRN IV ALLERGIC REACTION; Start 10/26/16 at 15:00 ; Stop 01/24/17 at 14:59 Famotidine 20 mg/ Ondansetron HCl 16 mg/Sodium Chloride 60 ml @ 120 mls/hr 15 IV Last administered on 10/29/16 21:31; Admin Dose 120 MLS/HR; Start 10/27/16 at 15:00; Stop 10/31/16 at 15:29 Etoposide 83 mg/ Sodium Chloride 500 ml @ 21 mls/hr 16 IV Last administered on 10/29/16 21:57; Admin Dose 21 MLS/HR; Start 10/27/16 at 16:00; Stop 10/31/16 at 15:49 Doxorubicin HCl 17 mg/Vincristine Sulfate 0.5 mg/ Sodium Chloride 500 ml @ 21 mls/hr 16 IV Last administered on 10/29/16t 21:57; Admin Dose 21 MLS/HR; Start 10/27/16 at 16:00; Stop 10/31/16 at 15:49 Cyclophosphamide/ Cyclophosphamide/ Sodium Chloride (Cytoxan/Cytoxan/ NS) 250 ml @ 1,000 mls/hr 16 IV ; Start 10/31/16 at 16:00; Stop 10/31/16 at 16:14 Filgrastim (Neupogen) 300 mcg DAILY@17 SC ; Start 11/01/16 at 17:00 Trimethoprim/ Sulfamethoxazole (Bactrim (Ds)) 1 tab TuThSa@09 PO ; Start at 09:00 TO,NEY Granado MD Oct 30, 2016 14:56
--- NOTE | 2016-10-30 16:27 | RADRPT ---
PROCEDURE: CT guided bone marrow aspiration and left iliac bone biopsy. CLINICAL INDICATION: History of lymphoma with pancytopenia. TECHNIQUE: Informed consent was obtained. The procedure, risks, benefits, complications and alternatives were e xplained to the patient. Risks including bleeding and infection were explained. The patient understo od and was willing to proceed. A procedural pause was performed. The patient's name, date of , and procedure to be performed were verified. One or more of the following dose reduction techniqu es were used: Automated exposure control, adjustment of the mA and/or kV according to patient size, use of iterative reconstruction technique. Using local anesthetic, sterile technique and CT guidance, an 11-gauge On Control bone biopsy needle was advanced into the left iliac bone via a posterior approach. Bone marrow aspiration was perform ed yielding approximately 10 ml. The bone biopsy needle was then advanced an additional 4 cm using the power drill device and tissue was obtained. Adequate tissue was obtained according to the patho logist present during the procedure. The needle was removed. A postprocedural scan was performed. A dressing was applied. The patient tolerated procedure well. COMPARISON: None. FINDINGS: Initial images demonstrate the tip of the needle at the posterior margin of the left iliac bone. Phillip bsequent images demonstrate the needle within the bone. Post biopsy images demonstrate no immediate complication. IMPRESSION: 1. Successful CT guided bone marrow aspiration and biopsy. RPTAT: QQ .Nicolas Erwin MD, Date Time Electronically viewed and signed by .Nicolas Erwin MD, MD on 10/30/2016 16:26 .R/
--- NOTE | 2016-10-30 18:32 | CONS ---
Date/Time of Note Date/Time of Note DATE: 10/30/16 TIME: 18:29 Assessment/Plan Assessment/Plan Additional Assessment/Plan Persistent nausea and vomiting 2/2 to gastric outlet obstruction * Known gastric mass, diagnosed lymphoma in [place] * Unresectable large distal gastric proximal intestinal mass with significant lymphadenopathy * There would be no benefit to stenting the gastric outlet obstruction as the patient has a patent gastrojejunostomy which is much wider than what a stent may accomplish without significant difficulties that it may entail. 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 * History of diabetes mellitus Plan: * Advance diet as tolerated * Reglan 10mg every 6 hrs * Treatment of gastric lymphoma per rn oncology * Further recommendations depend on clinical course * GI sign off. Available as needed for additional consult * Patient seen in collaboration with Dr. Rojas Consultation Date/Type/Reason Admit Date/Time Oct 22, 2016 at 19:46 Initial Consult Date 10/24/16 Type of Consultation: Hematology/Oncology Referring Provider: POOJA VILLA 24 HR Interval Summary Free Text/Dictation Patient tolerating diet Pathology reviewed by oncology Bone marrow biopsy today GI sign off Exam/Review of Systems Vital Signs Vitals Vital Signs Date Time Temp Pulse Resp B/P Pulse Ox O2 Delivery O2 Flow Rate FiO2 10/30/16 16:00 97.6 65 16 117/68 97 Room Air 10/30/16 14:55 3.0 Intake and Output 10/29/16 10/29/16 10/30/16 15:00 23:00 07:00 Intake Total 2724 ml 1888 ml Output Total 1200 ml Balance 2724 ml 688 ml Exam Constitutional: alert, oriented, well developed Psych: nl mood/affect, no complaints Head: atraumatic, normocephalic Eyes: EOMI, nl conjunctiva, nl lids, nl sclera ENMT: mucosa pink and moist, nl external ears & nose, nl lips & teeth, nl nasal mucosa & septum Neck: non-tender, supple Respiratory: clear to auscultation, normal air movement Cardiovascular: nl pulses, regular rate and rhythm Gastrointestinal: bowel sounds, non-tender, soft Results Result Diagram: 10/28/16 0442 10/28/16441 Results 24 hrs Laboratory Tests Test 10/29/16 20:23 10/30/16 01:19 10/30/16 04:28 10/30/16 08:07 Bedside Glucose 226 H 147 104 Lactate Dehydrogenase 842 H Uric Acid 2.3 L Test 10/30/16 11:56 10/30/16 17:40 Bedside Glucose 151 255 H Medications Medications Current Medications Zolpidem Tartrate (Ambien) 5 mg HS PRN PO INSOMNIA Last administered on 22:29; Admin Dose 5 MG; Start 10/22/16 at 22:30 Docusate Sodium (Colace) 100 mg BID PO Last administered on 10/30/16 09:12; Admin Dose 100 MG; Start 10/22/16 at 23:30 Ondansetron HCl (Zofran Inj) 4 mg Q6H PRN IV NAUSEA AND/OR VOMITING Last administered on 10/23/16at 14:42; Admin Dose 4 MG; Start 10/22/16 at 23:30 Acetaminophen (Tylenol Tab) 650 mg Q6H PRN PO PAIN AND OR ELEVATED TEMP; Start 10/22/16 at 23:30 Pantoprazole (Protonix Iv) 40 mg DAILY@06 IV Last administered on 10/30/16 05: 09; Admin Dose 40 MG; Start 10/23/16 at 06:00 Diagnostic Test (Pha) 1 ea 1 ea 02 XX Last administered on 10/30/16 01:25; Admin Dose 1 EA; Start 10/23/16 at 02:00 Sodium Chloride (NS) 1,000 ml @ 80 mls/hr [id number] IV Last administered on 18:15; Admin Dose 80 MLS/HR; Start 10/22/16 at 23:30 Miscellaneous Information 1 ea NOTE XX ; Start 10/22/16 at 23:30 Glucose (Glutose) 15 gm Q15M PRN PO DECREASED GLUCOSE; Start 10/22/16 at 23:30 Glucose (Glutose) 22.5 gm Q15M PRN PO DECREASED GLUCOSE; Start 10/22/16 at 23: 30 Dextrose (D50w Syringe) 25 ml Q15M PRN IV DECREASED GLUCOSE; Start 10/22/16 at 23:30 Dextrose (D50w Syringe) 50 ml Q15M PRN IV DECREASED GLUCOSE; Start 10/22/16 at 23:30 Glucagon (Glucagen) 1 mg Q15M PRN IM DECREASED GLUCOSE; Start 10/22/16 at 23: 30 Glucose (Glutose) 15 gm Q15M PRN BUCCAL DECREASED GLUCOSE; Start 10/22/16 at 23:30 Metoclopramide HCl (Reglan) 10 mg Q6 IV Last administered on 10/30/16 17:41; Admin Dose 10 MG; Start 10/23/16 at 14:30 Allopurinol 300 mg 300 mg DAILY PO Last administered on 10/30/16 09:12; Admin Dose 300 MG; Start 10/26/16 at 09:00 Ondansetron HCl/ Dextrose (Zofran Inj/D5W) 54 ml @ 108 mls/hr Q6H PRN IV NAUSEA AND/OR VOMITING; Start 10/26/16 at 14:00 Diphenhydramine HCl (Benadryl) 25 mg Q6H PRN IV ALLERGIC REACTION; Start 10/26 at 14:00 Dexamethasone 8 mg 8 mg ONCE PRN IV ALLERGIC REACTION; Start 10/26/16 at 15:00 ; Stop 01/24/17 at 14:59 Famotidine 20 mg/ Ondansetron HCl 16 mg/Sodium Chloride 60 ml @ 120 mls/hr 15 IV Last administered on 10/29/16 21:31; Admin Dose 120 MLS/HR; Start 10/27/16 at 15:00; Stop 10/31/16 at 15:29 Etoposide 83 mg/ Sodium Chloride 500 ml @ 21 mls/hr 16 IV Last administered on 10/29/16 21:57; Admin Dose 21 MLS/HR; Start 10/27/16 at 16:00; Stop 10/31/16 at 15:49 Doxorubicin HCl 17 mg/Vincristine Sulfate 0.5 mg/ Sodium Chloride 500 ml @ 21 mls/hr 16 IV Last administered on 10/29/16 21:57; Admin Dose 21 MLS/HR; Start 10/27/16 at 16:00; Stop 10/31/16 at 15:49 Cyclophosphamide/ Cyclophosphamide/ Sodium Chloride (Cytoxan/Cytoxan/ NS) 250 ml @ 1,000 mls/hr 16 IV ; Start 10/31/16 at 16:00; Stop 10/31/16 at 16:14 Filgrastim (Neupogen) 300 mcg DAILY@17 SC ; Start 11/01/16 at 17:00 Trimethoprim/ Sulfamethoxazole (Bactrim (Ds)) 1 tab [place]@09 PO ; Start at 09:00 [place] Oct 30, 2016 18:31
[2016-10-30] MEDS: ONDANSETRON IV SCH (23:04)
[2016-10-30] MEDS: FAMOTIDINE IV SCH (23:04)
[2016-10-30] MEDS: SOD CHLORIDE 0.9% IV SCH ×3 (23:04→23:56)
[2016-10-30] MEDS: ETOPOSIDE IV SCH (23:46)
[2016-10-30] MEDS: VINCRISTINE IV SCH (23:56)
[2016-10-30] MEDS: DOXORUBICIN IV SCH (23:56)
[2016-10-31] VITALS (9 sets, daily range): BP systolic 119–128; BP diastolic 55–70; PULSE 61–73; RESP 16–20
[2016-10-31] MEDS: ACCUCHECK XX SCH (01:27)
[2016-10-31 05:32] LABS: ALBUMIN 2.7 g/dl (3.3-4.9); URIC ACID 2.1 mg/dl (3.1-7.9)
[2016-10-31 05:33] LABS: POTASSIUM 3.8 mmol/L (3.5-5.1)
[2016-10-31 05:35] LABS: BILIRUBIN,INDIRECT 0.7 mg/dl (0-1.1); BILIRUBIN,TOTAL 0.7 mg/dl (0.2-1.3); CALCIUM 8.4 mg/dl (8.4-10.2); CREATININE 0.52 mg/dl (0.61-1.24); TOTAL PROTEIN 5.4 g/dl (6.1-8.1)
[2016-10-31] MEDS: SOD CHLORIDE 0.9% 1,000 ML IV SCH ×2 (07:01→20:11)
[2016-10-31] MEDS: METOCLOPRAMIDE 10 MG INJ IV SCH ×4 (07:01→18:23)
[2016-10-31] MEDS: INSULIN ASPART [NOVOLOG] 3 ML PEN SC SCH ×4 (07:50→20:12)
[2016-10-31] MEDS: TRIMETHOPRIM/SULFAMETHOX (DS) TAB PO SCH (08:59)
[2016-10-31] MEDS: DOCUSATE SODIUM 100 MG CAP PO SCH ×2 (08:59→20:13)
[2016-10-31] MEDS: ALLOPURINOL 300 MG TAB PO SCH (08:59)
[2016-10-31] MEDS: PANTOPRAZOLE 40 MG INJ IV SCH (08:59)
[2016-10-31] MEDS: ONDANSETRON 4 MG INJ IV PRN (09:04)
--- NOTE | 2016-10-31 15:23 | CONS ---
Date/Time of Note Date/Time of Note DATE: 10/31/16 TIME: 15:22 Assessment/Plan Assessment/Plan Chief Complaint/Hosp Course The patient is a 61 year old male with recent diagnosis of gastric lymphoma in [place], with nausea and vomiting due to gastric outlet obstruction. 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 THe lymphoma has a Ki 67 high at 95%. BCL2 and BCL6 positive, FISH pending for BCL2, BCL6 and Myc. Given double expression of BCL2 and BCL6, pt has been started on R-EPOCH chemotherapy until FISH results return. Problems: (1) Gastric lymphoma Status: Acute Additional Assessment/Plan -continue with chemotherapy, day 5 today Rituximab 375 mg IV D1 Etoposide 50 mg/m2 IV over 24 hours D1-4 Doxorubicin 10 mg/m2 IV over 24 hours D1-4 Vincristine 0.4 mg/m2 IV over 24 hours D1-4 Cyclophosphamide 750 mg/m2 IV over 15 minutes D5 Prednisone 60 mg/m2 PO D1-5 - Patient will need neupogen 300 mcg starting D6 - s/p port placement 10/25/16 - Check LDH, uric acid daily to monitor for tumor lysis, will continue allopurinol with chemotherapy as tumor lysis prophylaxis, on bactrim 3x/week prophylaxis - TTE shows normal EF. HIV, hepatitis panel negative - bone marrow bx performed 10/30/16, will follow up results - Rx placed in chart for neupogen 300 mcg subcutaneous daily to be given for 10 days starting day after chemo (needs auth), bactrim ppx, allopurinol, colace and zofran prn - Patient receiving zofran prn, reglan atc - will place case management order for patient to follow up with Dr. Stephanie Leblanc upon discharge Problems: Consultation Date/Type/Reason Admit Date/Time Oct 22, 2016 at 19:46 Initial Consult Date 10/24/16 Type of Consultation: Hematology/Oncology Referring Provider: POOJA VILLA 24 HR Interval Summary Free Text/Dictation Patient had nausea this morning but improved with zofran. He is doing well, no complaints. Exam/Review of Systems Vital Signs Vitals Vital Signs Date Time Temp Pulse Resp B/P Pulse Ox O2 Delivery O2 Flow Rate FiO2 10/31/16 08:05 97.8 61 18 128/60 99 10/31/16 04:00 Room Air 10/30/16 14:55 3.0 Intake and Output 10/30/16 10/30/16 10/31/16 15:00 23:00 07:00 Intake Total 250 ml 1360 ml 1676 ml Balance 250 ml 1360 ml 1676 ml Exam Constitutional: alert, oriented Psych: nl mood/affect, no complaints Head: atraumatic, normocephalic Eyes: nl conjunctiva ENMT: nl external ears & nose Neck: non-tender, supple Respiratory: clear to auscultation, normal air movement Cardiovascular: nl pulses, regular rate and rhythm Gastrointestinal: soft Musculoskeletal: nl extremities to inspection, nl gait and stance Results Result Diagram: 10/28/162 10/31/16 0445 Results 24 hrs Laboratory Tests Test 10/30/16 17:40 10/30/16 22:12 10/31/16 04:45 10/31/16 07:57 Bedside Glucose 255 H 164 102 Alanine Aminotransferase (ALT/SGPT) 28 Albumin 2.7 L Albumin/Globulin Ratio 1.00 Alkaline Phosphatase 76 Anion Gap 11 Aspartate Amino Transf (AST/SGOT) 17 Blood Urea Nitrogen 9 Calcium Level 8.4 Carbon Dioxide Level 28 Chloride Level 99 Creatinine 0.52 L Direct Bilirubin 0.00 Globulin 2.70 Glucose Level 98 Indirect Bilirubin 0.7 Lactate Dehydrogenase 548 Potassium Level 3.8 Sodium Level 134 L Total Bilirubin 0.7 Total Protein 5.4 L Uric Acid 2.1 L Test 10/31/16 11:48 Bedside Glucose 210 Medications Medications Current Medications Zolpidem Tartrate (Ambien) 5 mg HS PRN PO INSOMNIA Last administered on 22:29; Admin Dose 5 MG; Start 10/22/16 at 22:30 Docusate Sodium (Colace) 100 mg BID PO Last administered on 10/31/16 08:59; Admin Dose 100 MG; Start 10/22/16 at 23:30 Ondansetron HCl (Zofran Inj) 4 mg Q6H PRN IV NAUSEA AND/OR VOMITING Last administered on 10/31/16 09:04; Admin Dose 4 MG; Start 10/22/16 at 23:30 Acetaminophen (Tylenol Tab) 650 mg Q6H PRN PO PAIN AND OR ELEVATED TEMP; Start 10/22/16 at 23:30 Pantoprazole (Protonix Iv) 40 mg DAILY@06 IV Last administered on 10/31/16 08: 59; Admin Dose 40 MG; Start 10/23/16 at 06:00 Diagnostic Test (Pha) 1 ea 1 ea 02 XX Last administered on 10/30/16 01:25; Admin Dose 1 EA; Start 10/23/16 at 02:00 Sodium Chloride (NS) 1,000 ml @ 80 mls/hr [id number] IV Last administered on 07:01; Admin Dose 80 MLS/HR; Start 10/22/16 at 23:30 Miscellaneous Information 1 ea NOTE XX ; Start 10/22/16 at 23:30 Glucose (Glutose) 15 gm Q15M PRN PO DECREASED GLUCOSE; Start 10/22/16 at 23:30 Glucose (Glutose) 22.5 gm Q15M PRN PO DECREASED GLUCOSE; Start 10/22/16 at 23: 30 Dextrose (D50w Syringe) 25 ml Q15M PRN IV DECREASED GLUCOSE; Start 10/22/16 at 23:30 Dextrose (D50w Syringe) 50 ml Q15M PRN IV DECREASED GLUCOSE; Start 10/22/16 at 23:30 Glucagon (Glucagen) 1 mg Q15M PRN IM DECREASED GLUCOSE; Start 10/22/16 at 23: 30 Glucose (Glutose) 15 gm Q15M PRN BUCCAL DECREASED GLUCOSE; Start 10/22/16 at 23:30 Metoclopramide HCl (Reglan) 10 mg Q6 IV Last administered on 10/31/16 12:55; Admin Dose 10 MG; Start 10/23/16 at 14:30 Allopurinol 300 mg 300 mg DAILY PO Last administered on 10/31/16 08:59; Admin Dose 300 MG; Start 10/26/16 at 09:00 Ondansetron HCl/ Dextrose (Zofran Inj/D5W) 54 ml @ 108 mls/hr Q6H PRN IV NAUSEA AND/OR VOMITING; Start 10/26/16 at 14:00 Diphenhydramine HCl (Benadryl) 25 mg Q6H PRN IV ALLERGIC REACTION; Start 10/26 at 14:00 Dexamethasone 8 mg 8 mg ONCE PRN IV ALLERGIC REACTION; Start 10/26/16 at 15:00 ; Stop 01/24/17 at 14:59 Famotidine 20 mg/ Ondansetron HCl 16 mg/Sodium Chloride 60 ml @ 120 mls/hr 15 IV Last administered on 10/30/16 23:04; Admin Dose 120 MLS/HR; Start 10/27/16 at 15:00; Stop 10/31/16 at 15:29 Etoposide 83 mg/ Sodium Chloride 500 ml @ 21 mls/hr 16 IV Last administered on 10/30/16 23:46; Admin Dose 21 MLS/HR; Start 10/27/16 at 16:00; Stop 10/31/16 at 15:49 Doxorubicin HCl 17 mg/Vincristine Sulfate 0.5 mg/ Sodium Chloride 500 ml @ 21 mls/hr 16 IV Last administered on 10/30/16 23:56; Admin Dose 21 MLS/HR; Start 10/27/16 at 16:00; Stop 10/31/16 at 15:49 Cyclophosphamide/ Cyclophosphamide/ Sodium Chloride (Cytoxan/Cytoxan/ NS) 250 ml @ 1,000 mls/hr 16 IV ; Start 10/31/16 at 16:00; Stop 10/31/16 at 16:14 Filgrastim (Neupogen) 300 mcg DAILY@17 SC ; Start 11/01/16 at 17:00 Trimethoprim/ Sulfamethoxazole (Bactrim (Ds)) 1 tab TuThSa@09 PO Last administered on 10/31/16 08:59; Admin Dose 1 TAB; Start 10/31/16 at 09:00 TONEY MD Oct 31, 2016 15:23
[2016-10-31] MEDS ORDERED: SOD CHLORIDE 0.9% IV SCH (16:00)
[2016-10-31] MEDS ORDERED: CYCLOPHOSPHAMIDE IV SCH (16:00)
--- NOTE | 2016-10-31 18:09 | PN ---
Date/Time of Note Date/Time of Note DATE: 10/31/16 TIME: 18:08 Assessment/Plan VTE Prophylaxis VTE Prophylaxis Intervention: SCD's Lines/Catheters IV [facility] [place] Urinary Cath still in place: No Assessment/Plan Assessment/Plan 1. DLBCL (Large partially obstructing antral gastric mass with extensive ulceration with extensive lymphadenopathy): pt known diagnoses of lymphoma in [place]. Tumor unresectable - s/p EGD with multiple biopsies on 10/23, pathology DLBCL. Stenting felt unnecessary as pt with patent gastrojejunostomy - staging CT chest showed stable bulky retroperitoneal and gastrohepatic lymphadenopathy - bone marrow bx today - Chemo per Oncology 2. Intractable N/V: 2/2 above: per pt and family, symptom completely resolved with current anti-emetics. Will continue 3. Diabetes: A1C 6.8: diet controlled. PRN insulin while in house DVT/GI Ppx: SCDs and PPI Subjective 24 Hr Interval Summary Free Text/Dictation c/o some nausea Exam/Review of Systems Vital Signs Vitals Vital Signs Date Time Temp Pulse Resp B/P Pulse Ox O2 Delivery O2 Flow Rate FiO2 10/31/16 16:00 97.8 69 16 124/70 97 Room Air 10/30/16 14:55 3.0 Intake and Output 10/30/16 10/30/16 10/31/16 15:00 23:00 07:00 Intake Total 250 ml 1360 ml 1676 ml Balance 250 ml 1360 ml 1676 ml Exam Constitutional: alert, oriented Head: atraumatic, normocephalic Neck: non-tender, supple Respiratory: clear to auscultation, normal air movement Cardiovascular: nl pulses, regular rate and rhythm Gastrointestinal: other (minimal tenderness to deep palpation in RLQ), soft Extremities: normal pulses Results Result Diagram: 10/28/16 0442 10/31/16 0445 Results 24 hrs Laboratory Tests Test 10/30/16 22:12 10/31/16 04:45 10/31/16 07:57 10/31/16 11:48 Bedside Glucose 164 102 210 Alanine Aminotransferase (ALT/SGPT) 28 Albumin 2.7 L Albumin/Globulin Ratio 1.00 Alkaline Phosphatase 76 Anion Gap 11 Aspartate Amino Transf (AST/SGOT) 17 Blood Urea Nitrogen 9 Calcium Level 8.4 Carbon Dioxide Level 28 Chloride Level 99 Creatinine 0.52 L Direct Bilirubin 0.00 Globulin 2.70 Glucose Level 98 Indirect Bilirubin 0.7 Lactate Dehydrogenase 548 Potassium Level 3.8 Sodium Level 134 L Total Bilirubin 0.7 Total Protein 5.4 L Uric Acid 2.1 L Test 10/31/16 17:15 Bedside Glucose 148 Medications Medications Current Medications Zolpidem Tartrate (Ambien) 5 mg HS PRN PO INSOMNIA Last administered on 22:29; Admin Dose 5 MG; Start 10/22/16 at 22:30 Docusate Sodium (Colace) 100 mg BID PO Last administered on 10/31/16 08:59; Admin Dose 100 MG; Start 10/22/16 at 23:30 Ondansetron HCl (Zofran Inj) 4 mg Q6H PRN IV NAUSEA AND/OR VOMITING Last administered on 10/31/16 09:04; Admin Dose 4 MG; Start 10/22/16 at 23:30 Acetaminophen (Tylenol Tab) 650 mg Q6H PRN PO PAIN AND OR ELEVATED TEMP; Start 10/22/16 at 23:30 Pantoprazole (Protonix Iv) 40 mg DAILY@06 IV Last administered on 10/31/16 08: 59; Admin Dose 40 MG; Start 10/23/16 at 06:00 Diagnostic Test (Pha) 1 ea 1 ea 02 XX Last administered on 10/30/16 01:25; Admin Dose 1 EA; Start 10/23/16 at 02:00 Sodium Chloride (NS) 1,000 ml @ 80 mls/hr [id number] IV Last administered on 07:01; Admin Dose 80 MLS/HR; Start 10/22/16 at 23:30 Miscellaneous Information 1 ea NOTE XX ; Start 10/22/16 at 23:30 Glucose (Glutose) 15 gm Q15M PRN PO DECREASED GLUCOSE; Start 10/22/16 at 23:30 Glucose (Glutose) 22.5 gm Q15M PRN PO DECREASED GLUCOSE; Start 10/22/16 at 23: 30 Dextrose (D50w Syringe) 25 ml Q15M PRN IV DECREASED GLUCOSE; Start 10/22/16 at 23:30 Dextrose (D50w Syringe) 50 ml Q15M PRN IV DECREASED GLUCOSE; Start 10/22/16 at 23:30 Glucagon (Glucagen) 1 mg Q15M PRN IM DECREASED GLUCOSE; Start 10/22/16 at 23: 30 Glucose (Glutose) 15 gm Q15M PRN BUCCAL DECREASED GLUCOSE; Start 10/22/16 at 23:30 Metoclopramide HCl (Reglan) 10 mg Q6 IV Last administered on 10/31/16 12:55; Admin Dose 10 MG; Start 10/23/16 at 14:30 Allopurinol 300 mg 300 mg DAILY PO Last administered on 10/31/16 08:59; Admin Dose 300 MG; Start 10/26/16 at 09:00 Ondansetron HCl/ Dextrose (Zofran Inj/D5W) 54 ml @ 108 mls/hr Q6H PRN IV NAUSEA AND/OR VOMITING; Start 10/26/16 at 14:00 Diphenhydramine HCl (Benadryl) 25 mg Q6H PRN IV ALLERGIC REACTION; Start 10/26 at 14:00 Dexamethasone (Decadron) 8 mg ONCE PRN IV ALLERGIC REACTION; Start 10/26/16 at 15:00; Stop 01/24/17 at 14:59 Filgrastim (Neupogen) 300 mcg DAILY@17 SC ; Start 11/01/16 at 17:00 Trimethoprim/ Sulfamethoxazole (Bactrim (Ds)) 1 tab TuThSa@09 PO Last administered on 10/31/16 08:59; Admin Dose 1 TAB; Start 10/31/16 at 09:00 NICK GRAHAM MD Oct 31, 2016 18:09
[2016-10-31] MEDS ORDERED: MAGNESIUM HYDROXIDE 30ML CUP PO PRN (19:00)
[2016-10-31] MEDS ORDERED: DOCUSATE SODIUM 100 MG CAP PO SCH (21:00)
[2016-11-01] MEDS: METOCLOPRAMIDE 10 MG INJ IV SCH ×4 (00:24→18:00)
[2016-11-01 00:27] VITALS: BP 122/68; PULSE 68; RESP 18
[2016-11-01] MEDS: SOD CHLORIDE 0.9% IV SCH (02:19)
[2016-11-01] MEDS: FAMOTIDINE IV SCH (02:19)
[2016-11-01] MEDS: ONDANSETRON IV SCH (02:19)
[2016-11-01] MEDS: ACCUCHECK XX SCH (02:22)
[2016-11-01 02:32] VITALS: BP 115/64; PULSE 60; RESP 18
[2016-11-01 03:53] VITALS: BP 109/55; PULSE 56; RESP 18
[2016-11-01 05:29] LABS: ALBUMIN 2.7 g/dl (3.3-4.9)
[2016-11-01 05:30] LABS: POTASSIUM 3.8 mmol/L (3.5-5.1)
[2016-11-01 05:32] LABS: BILIRUBIN,INDIRECT 0.5 mg/dl (0-1.1); BILIRUBIN,TOTAL 0.5 mg/dl (0.2-1.3); CREATININE 0.54 mg/dl (0.61-1.24)
[2016-11-01 05:33] LABS: ALBUMIN/GLOBULIN RATIO 1.08; CALCIUM 8.2 mg/dl (8.4-10.2); TOTAL PROTEIN 5.2 g/dl (6.1-8.1)
[2016-11-01 05:36] LABS: URIC ACID 1.9 mg/dl (3.1-7.9)
[2016-11-01] MEDS: PANTOPRAZOLE 40 MG INJ IV SCH (05:46)
[2016-11-01 05:49] LABS: BASOPHILS % 0.5 % (0.0-2.0); EOSINOPHILS # 0.2 10^3/ul (0.0-0.5); HEMATOCRIT 34.2 % (42.0-52.0); HEMOGLOBIN 11.9 g/dl (14.0-18.0); LYMPHOCYTES # 1.1 10^3/ul (0.8-2.9); LYMPHOCYTES % 21.8 % (15.0-51.0); MEAN CORPUSCULAR HEMOGLOBIN 29.9 pg (29.0-33.0); MEAN CORPUSCULAR HGB CONC 34.9 g/dl (32.0-37.0); MEAN CORPUSCULAR VOLUME 85.7 fl (82.0-101.0); MEAN PLATELET VOLUME 6.6 fl (7.4-10.4); MONOCYTE # 0.1 10^3/ul (0.3-0.9); MONOCYTES % 1.7 % (0.0-11.0); NEUTROPHIL # 3.5 10^3/ul (1.6-7.5); PLATELET COUNT 284 10^3/UL (140-440); RED BLOOD COUNT 3.99 10^6/ul (4.70-6.10); RED CELL DISTRIBUTION WIDTH 13.3 % (11.5-14.5); UNCORRECTED WBC 4.9 10^3/ul (4.8-10.8); WHITE BLOOD COUNT 4.9 10^3/ul (4.8-10.8)
[2016-11-01 05:51] LABS: CONDITION 1
[2016-11-01] MEDS: INSULIN ASPART [NOVOLOG] 3 ML PEN SC SCH ×4 (07:50→21:06)
[2016-11-01 08:33] VITALS: BP 112/54; RESP 16
[2016-11-01] MEDS: ALLOPURINOL 300 MG TAB PO SCH (08:59)
[2016-11-01] MEDS: DOCUSATE SODIUM 100 MG CAP PO SCH ×2 (08:59→21:03)
[2016-11-01] MEDS: SOD CHLORIDE 0.9% 1,000 ML IV SCH ×2 (08:59→21:04)
--- NOTE | 2016-11-01 16:12 | CONS ---
Date/Time of Note Date/Time of Note DATE: 11/01/16 TIME: 16:10 Assessment/Plan Assessment/Plan Chief Complaint/Hosp Course The patient is a 61 year old male with recent diagnosis of gastric lymphoma in [place], with nausea and vomiting due to gastric outlet obstruction. 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 THe lymphoma has a Ki 67 high at 95%. BCL2 and BCL6 positive, FISH pending for BCL2, BCL6 and Myc. Given double expression of BCL2 and BCL6, pt has been started on R-EPOCH chemotherapy until FISH results return. Problems: (1) Gastric lymphoma Status: Acute Additional Assessment/Plan -continue with chemotherapy, day 5 today Rituximab 375 mg IV D1 Etoposide 50 mg/m2 IV over 24 hours D1-4 Doxorubicin 10 mg/m2 IV over 24 hours D1-4 Vincristine 0.4 mg/m2 IV over 24 hours D1-4 Cyclophosphamide 750 mg/m2 IV over 15 minutes D5 Prednisone 60 mg/m2 PO D1-5 - Patient will need neupogen 300 mcg x 10 days or neulasta 6 mg subcutaneous x 1 starting D6 - s/p port placement 10/25/16 - Check LDH, uric acid daily to monitor for tumor lysis, will continue allopurinol with chemotherapy as tumor lysis prophylaxis, on bactrim 3x/week prophylaxis - TTE shows normal EF. HIV, hepatitis panel negative - bone marrow bx performed 10/30/16, shows no evidence of involvement of malignant lymphoma in the bone marrow - FISH for BCL6 positive, but negative for BCL2 and MYC, thus not double or triple hit. Patient can received R-CHOP chemotherapy for the next cycle when seen as an outpatient. - Rx placed in chart for neupogen 300 mcg subcutaneous daily to be given for 10 days starting day after chemo or neulasta 6 mg subcutaneous x 1 (needs auth), bactrim ppx, allopurinol, colace and zofran prn - Patient receiving zofran prn, reglan atc - will place case management order for patient to follow up with Dr. Stephanie Leblanc upon discharge and outpatient PET/CT - ok to discharge from my perspective once neulasta or neupogen approved. RN to provide injection teaching. Problems: Consultation Date/Type/Reason Admit Date/Time Oct 22, 2016 at 19:46 Initial Consult Date 10/24/16 Type of Consultation: Hematology/Oncology Referring Provider: POOJA VILLA 24 HR Interval Summary Free Text/Dictation Patient doing well, finished chemo very early this morning. Denies nausea at this time. Exam/Review of Systems Vital Signs Vitals Vital Signs Date Time Temp Pulse Resp B/P Pulse Ox O2 Delivery O2 Flow Rate FiO2 11/01/16 08:33 98.0 60 16 112/54 99 11/01/16 03:53 Room Air 10/31/16 20:27 1 Intake and Output 10/31/16 10/31/16 11/01/16 15:00 23:00 07:00 Intake Total 2100 ml 2270 ml Output Total 900 ml Balance 2100 ml 1370 ml Exam Constitutional: alert, oriented Psych: nl mood/affect, no complaints Head: atraumatic, normocephalic Eyes: nl conjunctiva ENMT: nl external ears & nose Neck: non-tender, supple Respiratory: clear to auscultation, normal air movement Cardiovascular: nl pulses, regular rate and rhythm Gastrointestinal: soft Musculoskeletal: nl extremities to inspection, nl gait and stance Results Result Diagram: 11/01/1641911/01/16 0420 Results 24 hrs Laboratory Tests Test 10/31/16 17:15 10/31/16 20:01 11/01/16 02:20 11/01/16 04:20 Bedside Glucose 148 194 134 Alanine Aminotransferase (ALT/SGPT) 29 Albumin 2.7 L Albumin/Globulin Ratio 1.08 Alkaline Phosphatase 71 Anion Gap 12 Aspartate Amino Transf (AST/SGOT) 16 Basophils # 0.0 Basophils % 0.5 Blood Morphology Comment Blood Urea Nitrogen 9 Calcium Level 8.2 L Carbon Dioxide Level 28 Chloride Level 101 Creatinine 0.54 L Direct Bilirubin 0.00 Eosinophils # 0.2 Eosinophils % 4.0 Globulin 2.50 Glucose Level 99 Hematocrit 34.2 L Hemoglobin 11.9 L Indirect Bilirubin 0.5 Lactate Dehydrogenase 591 Lymphocytes # 1.1 Lymphocytes % 21.8 Mean Corpuscular Hemoglobin 29.9 Mean Corpuscular Hemoglobin Concent 34.9 Mean Corpuscular Volume 85.7 Mean Platelet Volume 6.6 L Monocytes # 0.1 L Monocytes % 1.7 Neutrophils # 3.5 Neutrophils % 72.0 Nucleated Red Blood Cells # 0.0 Nucleated Red Blood Cells % 0.0 Platelet Count 284 Potassium Level 3.8 Red Blood Count 3.99 L Red Cell Distribution Width 13.3 Sodium Level 137 Total Bilirubin 0.5 Total Protein 5.2 L Uric Acid 1.9 L White Blood Count 4.9 # Test 11/01/16 08:27 11/01/16 12:06 Bedside Glucose 103 177 Medications Medications Current Medications Zolpidem Tartrate (Ambien) 5 mg HS PRN PO INSOMNIA Last administered on 22:29; Admin Dose 5 MG; Start 10/22/16 at 22:30 Docusate Sodium (Colace) 100 mg BID PO Last administered on 11/01/16 08:59; Admin Dose 100 MG; Start 10/22/16 at 23:30 Ondansetron HCl (Zofran Inj) 4 mg Q6H PRN IV NAUSEA AND/OR VOMITING Last administered on 10/31/16 09:04; Admin Dose 4 MG; Start 10/22/16 at 23:30 Acetaminophen (Tylenol Tab) 650 mg Q6H PRN PO PAIN AND OR ELEVATED TEMP; Start 10/22/16 at 23:30 Pantoprazole (Protonix Iv) 40 mg DAILY@06 IV Last administered on 11/01/16 05: 46; Admin Dose 40 MG; Start 10/23/16 at 06:00 Diagnostic Test (Pha) 1 ea 1 ea 02 XX Last administered on 11/01/16 02:22; Admin Dose 1 EA; Start 10/23/16 at 02:00 Sodium Chloride (NS) 1,000 ml @ 80 mls/hr [id number] IV Last administered on 08:59; Admin Dose 80 MLS/HR; Start 10/22/16 at 23:30 Miscellaneous Information 1 ea NOTE XX ; Start 10/22/16 at 23:30 Glucose (Glutose) 15 gm Q15M PRN PO DECREASED GLUCOSE; Start 10/22/16 at 23:30 Glucose (Glutose) 22.5 gm Q15M PRN PO DECREASED GLUCOSE; Start 10/22/16 at 23: 30 Dextrose (D50w Syringe) 25 ml Q15M PRN IV DECREASED GLUCOSE; Start 10/22/16 at 23:30 Dextrose (D50w Syringe) 50 ml Q15M PRN IV DECREASED GLUCOSE; Start 10/22/16 at 23:30 Glucagon (Glucagen) 1 mg Q15M PRN IM DECREASED GLUCOSE; Start 10/22/16 at 23: 30 Glucose (Glutose) 15 gm Q15M PRN BUCCAL DECREASED GLUCOSE; Start 10/22/16 at 23:30 Metoclopramide HCl (Reglan) 10 mg Q6 IV Last administered on 11/01/16 13:25; Admin Dose 10 MG; Start 10/23/16 at 14:30 Allopurinol 300 mg 300 mg DAILY PO Last administered on 11/01/16 08:59; Admin Dose 300 MG; Start 10/26/16 at 09:00 Ondansetron HCl/ Dextrose (Zofran Inj/D5W) 54 ml @ 108 mls/hr Q6H PRN IV NAUSEA AND/OR VOMITING; Start 10/26/16 at 14:00 Diphenhydramine HCl (Benadryl) 25 mg Q6H PRN IV ALLERGIC REACTION; Start 10/26 at 14:00 Dexamethasone (Decadron) 8 mg ONCE PRN IV ALLERGIC REACTION; Start 10/26/16 at 15:00; Stop 01/24/17 at 14:59 Filgrastim (Neupogen) 300 mcg DAILY@17 SC ; Start 11/01/16 at 17:00 Trimethoprim/ Sulfamethoxazole (Bactrim (Ds)) 1 tab TuThSa@09 PO Last administered on 10/31/16 08:59; Admin Dose 1 TAB; Start 10/31/16 at 09:00 Magnesium Hydroxide (Milk Of Mag) 30 ml BID PRN PO CONSTIPATION; Start 10/31/16 at 19:00 NEY SORTO MD Nov 01, 2016 16:12
[2016-11-01] MEDS: FILGRASTIM 300 MCG INJ SC SCH (17:00)
[2016-11-01 19:37] VITALS: BP 129/65; RESP 22
--- NOTE | 2016-11-01 23:20 | PN ---
Date/Time of Note Date/Time of Note DATE: 11/01/16 TIME: 23:19 Assessment/Plan VTE Prophylaxis VTE Prophylaxis Intervention: SCD's Lines/Catheters IV [facility] Central Line Central line still needed: Yes Urinary Cath still in place: No Assessment/Plan Assessment/Plan 1. DLBCL (Large partially obstructing antral gastric mass with extensive ulceration with extensive lymphadenopathy): pt known diagnoses of lymphoma in [place]. Tumor unresectable - s/p EGD with multiple biopsies on 10/23, pathology DLBCL. Stenting felt unnecessary as pt with patent gastrojejunostomy - staging CT chest showed stable bulky retroperitoneal and gastrohepatic lymphadenopathy - bone marrow bx today - Chemo per Oncology 2. Intractable N/V: 2/2 above: per pt and family, symptom completely resolved with current anti-emetics. Will continue 3. Diabetes: A1C 6.8: diet controlled. PRN insulin while in house DVT/GI Ppx: SCDs and PPI Subjective 24 Hr Interval Summary Free Text/Dictation c/o mild nausea Exam/Review of Systems Vital Signs Vitals Vital Signs Date Time Temp Pulse Resp B/P Pulse Ox O2 Delivery O2 Flow Rate FiO2 11/01/16 20:34 Nasal Cannula 1 11/01/16 19:37 97.5 68 22 129/65 100 Intake and Output 10/31/16 10/31/16 11/01/16 15:00 23:00 07:00 Intake Total 2100 ml 2270 ml Output Total 900 ml Balance 2100 ml 1370 ml Exam Constitutional: alert, oriented Head: atraumatic, normocephalic Neck: non-tender, supple Respiratory: clear to auscultation, normal air movement Cardiovascular: nl pulses, regular rate and rhythm Gastrointestinal: other (minimal tenderness to deep palpation in RLQ), soft Extremities: normal pulses Results Result Diagram: 11/01/16 0420 11/01/16 0420 Results 24 hrs Laboratory Tests Test 11/01/16 02:20 11/01/16 04:20 11/01/16 08:27 11/01/16 12:06 Bedside Glucose 134 103 177 Alanine Aminotransferase (ALT/SGPT) 29 Albumin 2.7 L Albumin/Globulin Ratio 1.08 Alkaline Phosphatase 71 Anion Gap 12 Aspartate Amino Transf (AST/SGOT) 16 Basophils # 0.0 Basophils % 0.5 Blood Morphology Comment Blood Urea Nitrogen 9 Calcium Level 8.2 L Carbon Dioxide Level 28 Chloride Level 101 Creatinine 0.54 L Direct Bilirubin 0.00 Eosinophils # 0.2 Eosinophils % 4.0 Globulin 2.50 Glucose Level 99 Hematocrit 34.2 L Hemoglobin 11.9 L Indirect Bilirubin 0.5 Lactate Dehydrogenase 591 Lymphocytes # 1.1 Lymphocytes % 21.8 Mean Corpuscular Hemoglobin 29.9 Mean Corpuscular Hemoglobin Concent 34.9 Mean Corpuscular Volume 85.7 Mean Platelet Volume 6.6 L Monocytes # 0.1 L Monocytes % 1.7 Neutrophils # 3.5 Neutrophils % 72.0 Nucleated Red Blood Cells # 0.0 Nucleated Red Blood Cells % 0.0 Platelet Count 284 Potassium Level 3.8 Red Blood Count 3.99 L Red Cell Distribution Width 13.3 Sodium Level 137 Total Bilirubin 0.5 Total Protein 5.2 L Uric Acid 1.9 L White Blood Count 4.9 # Test 11/01/16 17:46 11/01/16 21:00 Bedside Glucose 129 182 Medications Medications Current Medications Zolpidem Tartrate (Ambien) 5 mg HS PRN PO INSOMNIA Last administered on 22:29; Admin Dose 5 MG; Start 10/22/16 at 22:30 Docusate Sodium (Colace) 100 mg BID PO Last administered on 11/01/16 21:03; Admin Dose 100 MG; Start 10/22/16 at 23:30 Ondansetron HCl (Zofran Inj) 4 mg Q6H PRN IV NAUSEA AND/OR VOMITING Last administered on 10/31/16 09:04; Admin Dose 4 MG; Start 10/22/16 at 23:30 Acetaminophen (Tylenol Tab) 650 mg Q6H PRN PO PAIN AND OR ELEVATED TEMP; Start 10/22/16 at 23:30 Pantoprazole (Protonix Iv) 40 mg DAILY@06 IV Last administered on 11/01/16 05: 46; Admin Dose 40 MG; Start 10/23/16 at 06:00 Diagnostic Test (Pha) 1 ea 1 ea 02 XX Last administered on 11/01/16 02:22; Admin Dose 1 EA; Start 10/23/16 at 02:00 Sodium Chloride (NS) 1,000 ml @ 80 mls/hr [id number] IV Last administered on 21:04; Admin Dose 80 MLS/HR; Start 10/22/16 at 23:30 Miscellaneous Information 1 ea NOTE XX ; Start 10/22/16 at 23:30 Glucose (Glutose) 15 gm Q15M PRN PO DECREASED GLUCOSE; Start 10/22/16 at 23:30 Glucose (Glutose) 22.5 gm Q15M PRN PO DECREASED GLUCOSE; Start 10/22/16 at 23: 30 Dextrose (D50w Syringe) 25 ml Q15M PRN IV DECREASED GLUCOSE; Start 10/22/16 at 23:30 Dextrose (D50w Syringe) 50 ml Q15M PRN IV DECREASED GLUCOSE; Start 10/22/16 at 23:30 Glucagon (Glucagen) 1 mg Q15M PRN IM DECREASED GLUCOSE; Start 10/22/16 at 23: 30 Glucose (Glutose) 15 gm Q15M PRN BUCCAL DECREASED GLUCOSE; Start 10/22/16 at 23:30 Metoclopramide HCl (Reglan) 10 mg Q6 IV Last administered on 11/01/16 13:25; Admin Dose 10 MG; Start 10/23/16 at 14:30 Allopurinol 300 mg 300 mg DAILY PO Last administered on 11/01/16 08:59; Admin Dose 300 MG; Start 10/26/16 at 09:00 Ondansetron HCl/ Dextrose (Zofran Inj/D5W) 54 ml @ 108 mls/hr Q6H PRN IV NAUSEA AND/OR VOMITING; Start 10/26/16 at 14:00 Diphenhydramine HCl (Benadryl) 25 mg Q6H PRN IV ALLERGIC REACTION; Start 10/26 at 14:00 Dexamethasone (Decadron) 8 mg ONCE PRN IV ALLERGIC REACTION; Start 10/26/16 at 15:00; Stop 01/24/17 at 14:59 Filgrastim (Neupogen) 300 mcg DAILY@17 SC ; Start 11/01/16 at 17:00 Trimethoprim/ Sulfamethoxazole (Bactrim (Ds)) 1 tab TuThSa@09 PO Last administered on 10/31/16 08:59; Admin Dose 1 TAB; Start 10/31/16 at 09:00 Magnesium Hydroxide (Milk Of Mag) 30 ml BID PRN PO CONSTIPATION; Start 10/31/16 at 19:00 NICK GRAHAM MD Nov 01, 2016 23:20
[2016-11-02] MEDS: METOCLOPRAMIDE 10 MG INJ IV SCH ×5 (00:19→23:08)
[2016-11-02] MEDS: ACCUCHECK XX SCH (01:10)
[2016-11-02] MEDS: PANTOPRAZOLE 40 MG INJ IV SCH (05:41)
[2016-11-02 06:01] LABS: BASOPHILS % 0.1 % (0.0-2.0); EOSINOPHILS # 0.2 10^3/ul (0.0-0.5); EOSINOPHILS % 4.8 % (0.0-7.0); HEMATOCRIT 33.5 % (42.0-52.0); HEMOGLOBIN 11.6 g/dl (14.0-18.0); LYMPHOCYTES # 0.8 10^3/ul (0.8-2.9); LYMPHOCYTES % 20.9 % (15.0-51.0); MEAN CORPUSCULAR HEMOGLOBIN 29.6 pg (29.0-33.0); MEAN CORPUSCULAR HGB CONC 34.7 g/dl (32.0-37.0); MEAN CORPUSCULAR VOLUME 85.4 fl (82.0-101.0); MEAN PLATELET VOLUME 6.7 fl (7.4-10.4); MONOCYTES % 0.6 % (0.0-11.0); NEUTROPHIL # 2.8 10^3/ul (1.6-7.5); NEUTROPHILS % 73.6 % (39.0-77.0); PLATELET COUNT 247 10^3/UL (140-440); RED BLOOD COUNT 3.92 10^6/ul (4.70-6.10); RED CELL DISTRIBUTION WIDTH 13.9 % (11.5-14.5); UNCORRECTED WBC 3.8 10^3/ul (4.8-10.8); WHITE BLOOD COUNT 3.8 10^3/ul (4.8-10.8)
[2016-11-02 06:20] LABS: CONDITION 1
[2016-11-02 06:31] LABS: ALBUMIN 2.6 g/dl (3.3-4.9)
[2016-11-02 06:32] LABS: POTASSIUM 3.4 mmol/L (3.5-5.1)
[2016-11-02 06:34] LABS: BILIRUBIN,INDIRECT 0.5 mg/dl (0-1.1); BILIRUBIN,TOTAL 0.5 mg/dl (0.2-1.3); CREATININE 0.37 mg/dl (0.61-1.24); TOTAL PROTEIN 5.2 g/dl (6.1-8.1)
[2016-11-02] MEDS: INSULIN ASPART [NOVOLOG] 3 ML PEN SC SCH ×4 (07:50→21:00)
[2016-11-02 07:51] VITALS: BP 125/58; RESP 16
[2016-11-02] MEDS: ALLOPURINOL 300 MG TAB PO SCH (08:41)
[2016-11-02] MEDS: DOCUSATE SODIUM 100 MG CAP PO SCH ×2 (08:41→21:17)
[2016-11-02 08:42] LABS: URIC ACID 1.8 mg/dl (3.1-7.9)
[2016-11-02] MEDS: TRIMETHOPRIM/SULFAMETHOX (DS) TAB PO SCH (08:47)
[2016-11-02] MEDS: SOD CHLORIDE 0.9% 1,000 ML IV SCH ×3 (08:47→21:19)
[2016-11-02] MEDS ORDERED: BACTDS PO (10:34)
[2016-11-02] MEDS ORDERED: [UNRECOGNIZED DRUG - CODE] SC (10:34)
[2016-11-02] MEDS ORDERED: ALLO300T2 PO (10:34)
[2016-11-02] MEDS ORDERED: DOCU-144 PO (10:34)
[2016-11-02] MEDS ORDERED: PEGF6DIS2 SQ (10:34)
[2016-11-02] MEDS ORDERED: ONDA4SOL2 PO (10:34)
[2016-11-02] MEDS: ONDANSETRON 4 MG INJ IV PRN (10:43)
--- NOTE | 2016-11-02 10:43 | PDOCDIS ---
Discharge Instructions CONDITION Patient Condition: Stable HOME CARE INSTRUCTIONS: Diet Instructions: Special Diet: Soft diet ACTIVITY: Activity Restrictions: Slowly Increase Activity Rest between Activity Avoid heavy lifting Bathing Restrictions: Shower FOLLOW UP/APPOINTMENTS Appointments Follow-up with primary care Doctor and Oncologist OTHER ORDERS: Other Orders: Call 911 or go to the nearest ER if you have Abdominal pain, chest pain, shortness of breath, bleeding, fever, chills, difficulty eating, Intractable nausea/vomiting, severe pain, difficulty with bowel movement or diarrhea NICK GRAHAM MD Nov 02, 2016 10:43
--- NOTE | 2016-11-02 12:24 | DS ---
DATE OF ADMISSION: 10/22/2016 DATE OF DISCHARGE: 11/02/2016 DISCHARGE DIAGNOSES: 1. Gastric lymphoma, diffuse large B cell. 2. Gastric outlet obstruction. 3. Diabetes with A1c of 6.8. 4. Anemia, chemo induced. CONSULTATIONS: 1. Gastroenterology, Dr. Kyle Rojas, [facility] [place]. 2. Oncology, Dr. Gali Brooks. HOSPITAL COURSE: The patient is a 61-year-old male with a history of diabetes and gastric lymphoma diagnosed about a month ago in [place], who presented to the emergency department with abdominal remy n, nausea and vomiting. Unfortunately, while the patient was in [place], he underwent an EGD and fou nd to have a gastric mass and the biopsy showed lymphoma. According to the son, laparoscopic surgery was done with intention of resection; however, upon openi ng up the patient, the doctors were unable to resect mass. He was told to follow up with oncologist for chemo and at that time, he returned back to the [place], where he [place]. The patient was admitted and had a CT abdomen and pelvis which showed a diffuse wall thickening of the gastric antrum and po ssibly the first portion of the duodenum, suspicious for malignancy. Also noted was marked narrowin g of the region of the pylorus/duodenal bulb, suggesting impending gastric outlet obstruction. Esvin opathy with enlarged lymph nodes in the gastrohepatic ligament, periportal, peripancreatic, celiac, portocaval, aortocaval, left periaortic region consistent with metastasis, with approximate 8.3 cm m aximum transverse, 9.7 cm maximum anterior-posterior dimension conglomerate siddharth mass. Nonspecific nodular density at the lung bases was also noted. A CT of the chest was done which showed stable b ulky retroperitoneal and gastrohepatic lymphadenopathy consistent with lymphoma. No intrathoracic, supraclavicular, or axillary lymphadenopathy was noted. Also, no suspicious pulmonary nodules were noted. He underwent an EGD with biopsy which showed large partially obstructing antral gastric mass , totally malignant in nature with extensive ulceration. Noted also was patent surgical gastrojejun ostomy. During EGD, it was determined that there would be no benefit to stenting the gastric outlet obstruction as the patient has a patent gastrojejunostomy, which is much wider than what the stent may accomplish. PLAN: Dr. Gali Brooks from oncology saw so the patient and the biopsy results of the EGD came back diffuse large B-cell lymphoma. The patient was started on chemotherapy while in the hospital. He also underwent a bone marrow biopsy on 10/30/2016 which showed no evidence of involvement of maligna nt lymphoma in the bone marrow. The patient's initial nausea and vomiting had completely resolved w ith antiemetics and at the beginning of his admission and he remained stable throughout hospitaliza tion. He was tolerating a soft diet, and except for very minimal nausea that he mentioned yesterday , the patient remained stable. He will be discharged in stable condition to follow up with oncology for continued chemo. The patient did present with a hemoglobin of almost 15, but at the discharge it is 11.6, which is secondary to side effect of the chemotherapy. He is slightly leukopenic today with a WBC of 3.8; again, chemo induced. The patient will be discharged with Neulasta which has bee n approved by his insurance. CONDITION ON DISCHARGE: Stable. MEDICATIONS UPON DISCHARGE: The patient is to continue his Dexilant and he has been given a prescription for Allopurinol, Colace , Neulasta, Zofran and Bactrim to be taken 3 times a week. Patient has been given multiple refills . FOLLOWUP INSTRUCTIONS: The patient is to follow up with his primary care doctor and with his oncolo gist and he is to call 911 and go to the nearest emergency department if he develops any fever, chil ls, difficulty swallowing, intractable nausea and vomiting, difficulty having bowel movements, chest pain, shortness of breath, or bleeding. Total time spent with the discharge summary was 35 minutes. Dictated By: NICK CHAVEZ/AMBROSE Conf#: [id number] DID#: [id number]
[2016-11-02] MEDS: FILGRASTIM 300 MCG INJ SC SCH (18:08)
[2016-11-02 19:27] VITALS: BP 105/53; RESP 18
[2016-11-02 20:36] VITALS: BP 105/68; PULSE 62; RESP 18
[2016-11-03] MEDS: ACCUCHECK XX SCH (01:22)
[2016-11-03 05:43] LABS: HEMATOCRIT 35.5 % (42.0-52.0); HEMOGLOBIN 12.3 g/dl (14.0-18.0); MEAN CORPUSCULAR HEMOGLOBIN 29.9 pg (29.0-33.0); MEAN CORPUSCULAR HGB CONC 34.7 g/dl (32.0-37.0); MEAN CORPUSCULAR VOLUME 86.4 fl (82.0-101.0); MEAN PLATELET VOLUME 6.7 fl (7.4-10.4); PLATELET COUNT 281 10^3/UL (140-440); RED BLOOD COUNT 4.11 10^6/ul (4.70-6.10); RED CELL DISTRIBUTION WIDTH 13.7 % (11.5-14.5); UNCORRECTED WBC 16.9 10^3/ul (4.8-10.8); WHITE BLOOD COUNT 16.9 10^3/ul (4.8-10.8)
[2016-11-03 05:51] LABS: URIC ACID 1.7 mg/dl (3.1-7.9)
[2016-11-03] MEDS: METOCLOPRAMIDE 10 MG INJ IV SCH ×3 (05:52→17:24)
[2016-11-03] MEDS: PANTOPRAZOLE 40 MG INJ IV SCH (05:52)
[2016-11-03 06:00] LABS: CONDITION 1; LH ANALYZER COMMENTS 1; SUSPECT 1
[2016-11-03 06:14] LABS: ALBUMIN 2.8 g/dl (3.3-4.9)
[2016-11-03 06:16] LABS: CREATININE 0.44 mg/dl (0.61-1.24)
[2016-11-03 06:17] LABS: ALBUMIN/GLOBULIN RATIO 1.16; BILIRUBIN,INDIRECT 0.5 mg/dl (0-1.1); BILIRUBIN,TOTAL 0.5 mg/dl (0.2-1.3); CALCIUM 8.7 mg/dl (8.4-10.2); TOTAL PROTEIN 5.2 g/dl (6.1-8.1)
[2016-11-03 07:32] VITALS: BP 103/52; RESP 17
[2016-11-03] MEDS: INSULIN ASPART [NOVOLOG] 3 ML PEN SC SCH ×4 (07:50→21:00)
[2016-11-03 08:15] LABS: EOSINOPHILS # 0.7 10^3/ul (0.0-0.5); LYMPHOCYTES # 1.7 10^3/ul (0.8-2.9); MYELOCYTES # 0.2; NEUTROPHIL # 13.5 10^3/ul (1.6-7.5)
[2016-11-03] MEDS: DOCUSATE SODIUM 100 MG CAP PO SCH ×2 (08:39→21:27)
[2016-11-03] MEDS: ALLOPURINOL 300 MG TAB PO SCH (08:39)
--- NOTE | 2016-11-03 10:04 | CONS ---
Date/Time of Note Date/Time of Note DATE: 11/03/16 TIME: 10:01 Assessment/Plan Assessment/Plan Chief Complaint/Hosp Course The patient is a 61 year old male with recent diagnosis of gastric lymphoma in [place], with nausea and vomiting due to gastric outlet obstruction. 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 THe lymphoma has a Ki 67 high at 95%. BCL2 and BCL6 positive, FISH pending for BCL2, BCL6 and Myc. Given double expression of BCL2 and BCL6, pt has been started on R-EPOCH chemotherapy until FISH results return. Problems: (1) Gastric lymphoma Status: Acute Additional Assessment/Plan -s/p chemotherapy which he tolerated very well Rituximab 375 mg IV D1 Etoposide 50 mg/m2 IV over 24 hours D1-4 Doxorubicin 10 mg/m2 IV over 24 hours D1-4 Vincristine 0.4 mg/m2 IV over 24 hours D1-4 Cyclophosphamide 750 mg/m2 IV over 15 minutes D5 Prednisone 60 mg/m2 PO D1-5 - Patient needs neupogen 300 mcg x 10 days or neulasta 6 mg subcutaneous x 1 starting D6. Given that insurance has denied both neupogen and neulasta as an outaptient and only neupogen can be given inpatient, discharge cancelled as patient may develop a life threatening infection if discharged without growth factor. - s/p port placement 10/25/16 - Check LDH, uric acid daily to monitor for tumor lysis, will continue allopurinol with chemotherapy as tumor lysis prophylaxis, on bactrim 3x/week prophylaxis - TTE shows normal EF. HIV, hepatitis panel negative - bone marrow bx performed 10/30/16, shows no evidence of involvement of malignant lymphoma in the bone marrow - FISH for BCL6 positive, but negative for BCL2 and MYC, thus not double or triple hit. Patient can received R-CHOP chemotherapy for the next cycle when seen as an outpatient. Order already submitted. - Rx placed in chart for neupogen 300 mcg subcutaneous daily to be given for 10 days starting day after chemo or neulasta 6 mg subcutaneous x 1 (needs auth), bactrim ppx, allopurinol, colace and zofran prn - Patient receiving zofran prn, reglan atc - will place case management order for patient to follow up with Dr. Stephanie Leblanc upon discharge and outpatient PET/CT - ok to discharge from my perspective once neulasta or neupogen approved. RN to provide injection teaching. Problems: Consultation Date/Type/Reason Admit Date/Time Oct 22, 2016 at 19:46 Initial Consult Date 10/24/16 Type of Consultation: Hematology/Oncology Referring Provider: POOJA VILLA 24 HR Interval Summary Free Text/Dictation Patient doing well, no nausea or vomiting, no fevers, eating and ambulating well , no complaints. Exam/Review of Systems Vital Signs Vitals Vital Signs Date Time Temp Pulse Resp B/P Pulse Ox O2 Delivery O2 Flow Rate FiO2 11/03/16 07:32 97.7 73 17 103/52 96 11/02/16 20:38 Nasal Cannula 1 Intake and Output 11/02/16 11/02/16 11/03/16 15:00 23:00 07:00 Intake Total 860 ml 1460 ml Output Total 400 ml 1100 ml Balance 460 ml 360 ml Exam Constitutional: alert, oriented Psych: nl mood/affect, no complaints Head: atraumatic, normocephalic Eyes: nl conjunctiva ENMT: nl external ears & nose Neck: non-tender, supple Respiratory: clear to auscultation, normal air movement Cardiovascular: nl pulses, regular rate and rhythm Gastrointestinal: soft Musculoskeletal: nl extremities to inspection, nl gait and stance Results Result Diagram: 11/03/1642411/03/16 0425 Results 24 hrs Laboratory Tests Test 11/02/16 11:54 11/02/16 17:18 11/02/16 21:00 11/03/16 04:25 Bedside Glucose 207 141 134 Alanine Aminotransferase (ALT/SGPT) 20 Albumin 2.8 L Albumin/Globulin Ratio 1.16 Alkaline Phosphatase 88 Anion Gap 14 Aspartate Amino Transf (AST/SGOT) 17 Band Neutrophils % 5.0 Basophils # Basophils % Blood Morphology Comment Blood Urea Nitrogen 11 Calcium Level 8.7 Carbon Dioxide Level 26 Chloride Level 99 Creatinine 0.44 L Differential Comment MANUAL DIFF Direct Bilirubin 0.00 Eosinophils # 0.7 H Eosinophils % 4.0 Globulin 2.40 Glucose Level 115 Hematocrit 35.5 L Hemoglobin 12.3 L Indirect Bilirubin 0.5 Lactate Dehydrogenase 466 Lymphocytes # 1.7 Lymphocytes % 10.0 L Mean Corpuscular Hemoglobin 29.9 Mean Corpuscular Hemoglobin Concent 34.7 Mean Corpuscular Volume 86.4 Mean Platelet Volume 6.7 L Monocytes # Monocytes % Myelocytes # 0.2 Myelocytes % 1.0 H Neutrophils # 13.5 H Neutrophils % 80.0 H Nucleated Red Blood Cells # Nucleated Red Blood Cells % Platelet Count 281 Potassium Level 4.0 Red Blood Count 4.11 L Red Cell Distribution Width 13.7 Sodium Level 135 Total Bilirubin 0.5 Total Protein 5.2 L Uric Acid 1.7 L White Blood Count 16.9 #H Test 11/03/16 08:03 Bedside Glucose 124 Medications Medications Current Medications Zolpidem Tartrate (Ambien) 5 mg HS PRN PO INSOMNIA Last administered on 22:29; Admin Dose 5 MG; Start 10/22/16 at 22:30 Docusate Sodium (Colace) 100 mg BID PO Last administered on 11/03/16 08:39; Admin Dose 100 MG; Start 10/22/16 at 23:30 Ondansetron HCl (Zofran Inj) 4 mg Q6H PRN IV NAUSEA AND/OR VOMITING Last administered on 11/02/16 10:43; Admin Dose 4 MG; Start 10/22/16 at 23:30 Acetaminophen (Tylenol Tab) 650 mg Q6H PRN PO PAIN AND OR ELEVATED TEMP; Start 10/22/16 at 23:30 Pantoprazole (Protonix Iv) 40 mg DAILY@06 IV Last administered on 11/03/16 05: 52; Admin Dose 40 MG; Start 10/23/16 at 06:00 Diagnostic Test (Pha) 1 ea 1 ea 02 XX Last administered on 11/02/16 01:10; Admin Dose 1 EA; Start 10/23/16 at 02:00 Sodium Chloride (NS) 1,000 ml @ 80 mls/hr [id number] IV Last administered on 21:19; Admin Dose 80 MLS/HR; Start 10/22/16 at 23:30 Miscellaneous Information 1 ea NOTE XX ; Start 10/22/16 at 23:30 Glucose (Glutose) 15 gm Q15M PRN PO DECREASED GLUCOSE; Start 10/22/16 at 23:30 Glucose (Glutose) 22.5 gm Q15M PRN PO DECREASED GLUCOSE; Start 10/22/16 at 23: 30 Dextrose (D50w Syringe) 25 ml Q15M PRN IV DECREASED GLUCOSE; Start 10/22/16 at 23:30 Dextrose (D50w Syringe) 50 ml Q15M PRN IV DECREASED GLUCOSE; Start 10/22/16 at 23:30 Glucagon (Glucagen) 1 mg Q15M PRN IM DECREASED GLUCOSE; Start 10/22/16 at 23: 30 Glucose (Glutose) 15 gm Q15M PRN BUCCAL DECREASED GLUCOSE; Start 10/22/16 at 23:30 Metoclopramide HCl (Reglan) 10 mg Q6 IV Last administered on 11/03/16 05:52; Admin Dose 10 MG; Start 10/23/16 at 14:30 Allopurinol 300 mg 300 mg DAILY PO Last administered on 11/03/16 08:39; Admin Dose 300 MG; Start 10/26/16 at 09:00 Ondansetron HCl/ Dextrose (Zofran Inj/D5W) 54 ml @ 108 mls/hr Q6H PRN IV NAUSEA AND/OR VOMITING; Start 10/26/16 at 14:00 Diphenhydramine HCl (Benadryl) 25 mg Q6H PRN IV ALLERGIC REACTION; Start 10/26 at 14:00 Dexamethasone (Decadron) 8 mg ONCE PRN IV ALLERGIC REACTION; Start 10/26/16 at 15:00; Stop 01/24/17 at 14:59 Filgrastim (Neupogen) 300 mcg DAILY@17 SC Last administered on 11/02/16 18:08; Admin Dose 300 MCG; Start 11/01/16 at 17:00 Trimethoprim/ Sulfamethoxazole (Bactrim (Ds)) 1 tab TuThSa@09 PO Last administered on 11/02/16 08:47; Admin Dose 1 TAB; Start 10/31/16 at 09:00 Magnesium Hydroxide (Milk Of Mag) 30 ml BID PRN PO CONSTIPATION; Start 10/31/16 at 19:00 NEY SORTO MD Nov 03, 2016 10:04
[2016-11-03] MEDS: SOD CHLORIDE 0.9% 1,000 ML IV SCH ×2 (10:30→14:52)
--- NOTE | 2016-11-03 12:02 | PN ---
Date/Time of Note Date/Time of Note DATE: 11/03/16 TIME: 12:00 Assessment/Plan VTE Prophylaxis VTE Prophylaxis Intervention: SCD's Lines/Catheters [facility] Urinary Cath still in place: No Assessment/Plan Assessment/Plan 1. DLBCL (Large partially obstructing antral gastric mass with extensive ulceration with extensive lymphadenopathy): pt known diagnoses of lymphoma in [place]. Tumor unresectable - s/p EGD with multiple biopsies on 10/23, pathology DLBCL. Stenting felt unnecessary as pt with patent gastrojejunostomy - staging CT chest showed stable bulky retroperitoneal and gastrohepatic lymphadenopathy - bone marrow bx completed - continue with neupogen for 10 day total therapy - Chemo per Oncology 2. Intractable N/V: 2/2 above: per pt and family, symptom completely resolved with current anti-emetics. Will continue 3. Diabetes: A1C 6.8: diet controlled. PRN insulin while in house DVT/GI Ppx: SCDs and PPI dispo - f/u recs, as per clinical course. this progress note took greater than 40 minutes to complete Subjective 24 Hr Interval Summary Free Text/Dictation Patient remained in the hospital because can fill prescription for neupogen. Since he is a high risk for infection, he will stay here for the duration of therapy as per Hem/Onc. I conveyed this to the patient and his family at bedside. Denies any fevers/chills. Spoke to him about the care plan. 15 minutes spent. Exam/Review of Systems Vital Signs Vitals Vital Signs Date Time Temp Pulse Resp B/P Pulse Ox O2 Delivery O2 Flow Rate FiO2 11/03/16 07:32 97.7 73 17 103/52 96 11/02/16 20:38 Nasal Cannula 1 Intake and Output 11/02/16 11/02/16 11/03/16 15:00 23:00 07:00 Intake Total 860 ml 1460 ml Output Total 400 ml 1100 ml Balance 460 ml 360 ml Exam Gen Diamond: NAD, AAOx4 HEENT: NC/AT, PERRLA, EOMI, no pharyngeal erythema, no tonsillar exudates, no lymphadenopathy, no JVD, no carotid bruits NECK: supple, no thyromegaly THORAX: symmetrical, no obvious deformities CV: S1S2, RRR, no M/G/R Lungs: CTAB no W/C/R/R Abd: soft, NT/ND, +BS, no rebound, no guarding, neg HSM EXT: no edema, no ecchymosis, no clubbing, FROM Neuro: CN II-XII grossly intact, no focal deficits Psych: good mentation, alert and oriented, good mood and affect Skin: C/D/I Results Result Diagram: 11/03/16 0425 11/03/16 0425 Results 24 hrs Laboratory Tests Test 11/02/16 17:18 11/02/16 21:00 11/03/16 04:25 11/03/16 08:03 Bedside Glucose 141 134 124 Alanine Aminotransferase (ALT/SGPT) 20 Albumin 2.8 L Albumin/Globulin Ratio 1.16 Alkaline Phosphatase 88 Anion Gap 14 Aspartate Amino Transf (AST/SGOT) 17 Band Neutrophils % 5.0 Basophils # Basophils % Blood Morphology Comment Blood Urea Nitrogen 11 Calcium Level 8.7 Carbon Dioxide Level 26 Chloride Level 99 Creatinine 0.44 L Differential Comment MANUAL DIFF Direct Bilirubin 0.00 Eosinophils # 0.7 H Eosinophils % 4.0 Globulin 2.40 Glucose Level 115 Hematocrit 35.5 L Hemoglobin 12.3 L Indirect Bilirubin 0.5 Lactate Dehydrogenase 466 Lymphocytes # 1.7 Lymphocytes % 10.0 L Mean Corpuscular Hemoglobin 29.9 Mean Corpuscular Hemoglobin Concent 34.7 Mean Corpuscular Volume 86.4 Mean Platelet Volume 6.7 L Monocytes # Monocytes % Myelocytes # 0.2 Myelocytes % 1.0 H Neutrophils # 13.5 H Neutrophils % 80.0 H Nucleated Red Blood Cells # Nucleated Red Blood Cells % Platelet Count 281 Potassium Level 4.0 Red Blood Count 4.11 L Red Cell Distribution Width 13.7 Sodium Level 135 Total Bilirubin 0.5 Total Protein 5.2 L Uric Acid 1.7 L White Blood Count 16.9 #H Test 11/03/16 11:39 Bedside Glucose 170 Medications Medications Current Medications Zolpidem Tartrate (Ambien) 5 mg HS PRN PO INSOMNIA Last administered on 22:29; Admin Dose 5 MG; Start 10/22/16 at 22:30 Docusate Sodium (Colace) 100 mg BID PO Last administered on 11/03/16 08:39; Admin Dose 100 MG; Start 10/22/16 at 23:30 Ondansetron HCl (Zofran Inj) 4 mg Q6H PRN IV NAUSEA AND/OR VOMITING Last administered on 11/02/16 10:43; Admin Dose 4 MG; Start 10/22/16 at 23:30 Acetaminophen (Tylenol Tab) 650 mg Q6H PRN PO PAIN AND OR ELEVATED TEMP; Start 10/22/16 at 23:30 Pantoprazole (Protonix Iv) 40 mg DAILY@06 IV Last administered on 11/03/16 05: 52; Admin Dose 40 MG; Start 10/23/16 at 06:00 Diagnostic Test (Pha) 1 ea 1 ea 02 XX Last administered on 11/02/16 01:10; Admin Dose 1 EA; Start 10/23/16 at 02:00 Sodium Chloride (NS) 1,000 ml @ 80 mls/hr [id number] IV Last administered on 21:19; Admin Dose 80 MLS/HR; Start 10/22/16 at 23:30 Miscellaneous Information 1 ea NOTE XX ; Start 10/22/16 at 23:30 Glucose (Glutose) 15 gm Q15M PRN PO DECREASED GLUCOSE; Start 10/22/16 at 23:30 Glucose (Glutose) 22.5 gm Q15M PRN PO DECREASED GLUCOSE; Start 10/22/16 at 23: 30 Dextrose (D50w Syringe) 25 ml Q15M PRN IV DECREASED GLUCOSE; Start 10/22/16 at 23:30 Dextrose (D50w Syringe) 50 ml Q15M PRN IV DECREASED GLUCOSE; Start 10/22/16 at 23:30 Glucagon (Glucagen) 1 mg Q15M PRN IM DECREASED GLUCOSE; Start 10/22/16 at 23: 30 Glucose (Glutose) 15 gm Q15M PRN BUCCAL DECREASED GLUCOSE; Start 10/22/16 at 23:30 Metoclopramide HCl (Reglan) 10 mg Q6 IV Last administered on 11/03/16 05:52; Admin Dose 10 MG; Start 10/23/16 at 14:30 Allopurinol 300 mg 300 mg DAILY PO Last administered on 11/03/16 08:39; Admin Dose 300 MG; Start 10/26/16 at 09:00 Ondansetron HCl/ Dextrose (Zofran Inj/D5W) 54 ml @ 108 mls/hr Q6H PRN IV NAUSEA AND/OR VOMITING; Start 10/26/16 at 14:00 Diphenhydramine HCl (Benadryl) 25 mg Q6H PRN IV ALLERGIC REACTION; Start 10/26 at 14:00 Dexamethasone (Decadron) 8 mg ONCE PRN IV ALLERGIC REACTION; Start 10/26/16 at 15:00; Stop 01/24/17 at 14:59 Filgrastim (Neupogen) 300 mcg DAILY@17 SC Last administered on 11/02/16 18:08; Admin Dose 300 MCG; Start 11/01/16 at 17:00 Trimethoprim/ Sulfamethoxazole (Bactrim (Ds)) 1 tab TuThSa@09 PO Last administered on 11/02/16 08:47; Admin Dose 1 TAB; Start 10/31/16 at 09:00 Magnesium Hydroxide (Milk Of Mag) 30 ml BID PRN PO CONSTIPATION; Start 10/31/16 at 19:00 CIPRIANO AL MD Nov 03, 2016 12:02
[2016-11-03] MEDS: FILGRASTIM 300 MCG INJ SC SCH (17:25)
[2016-11-03 20:45] VITALS: BP 98/57; RESP 18
[2016-11-04] MEDS: METOCLOPRAMIDE 10 MG INJ IV SCH ×4 (00:31→20:05)
[2016-11-04] MEDS: SOD CHLORIDE 0.9% 1,000 ML IV SCH ×2 (00:35→12:53)
[2016-11-04] MEDS: ACCUCHECK XX SCH (01:57)
[2016-11-04 05:21] LABS: ALBUMIN 2.7 g/dl (3.3-4.9); POTASSIUM 3.6 mmol/L (3.5-5.1)
[2016-11-04 05:23] LABS: HEMATOCRIT 32.4 % (42.0-52.0); HEMOGLOBIN 11.1 g/dl (14.0-18.0); MEAN CORPUSCULAR HEMOGLOBIN 29.7 pg (29.0-33.0); MEAN CORPUSCULAR HGB CONC 34.4 g/dl (32.0-37.0); MEAN CORPUSCULAR VOLUME 86.3 fl (82.0-101.0); MEAN PLATELET VOLUME 6.6 fl (7.4-10.4); PLATELET COUNT 218 10^3/UL (140-440); RED BLOOD COUNT 3.75 10^6/ul (4.70-6.10); RED CELL DISTRIBUTION WIDTH 13.7 % (11.5-14.5); UNCORRECTED WBC 12.8 10^3/ul (4.8-10.8); WHITE BLOOD COUNT 12.8 10^3/ul (4.8-10.8)
[2016-11-04 05:24] LABS: ALBUMIN/GLOBULIN RATIO 1.08; BILIRUBIN,INDIRECT 0.5 mg/dl (0-1.1); BILIRUBIN,TOTAL 0.5 mg/dl (0.2-1.3); CREATININE 0.39 mg/dl (0.61-1.24); TOTAL PROTEIN 5.2 g/dl (6.1-8.1)
[2016-11-04 05:25] LABS: CALCIUM 8.2 mg/dl (8.4-10.2); URIC ACID 1.5 mg/dl (3.1-7.9)
[2016-11-04 05:38] LABS: CONDITION 1; LH ANALYZER COMMENTS 1; SUSPECT 1
[2016-11-04] MEDS: PANTOPRAZOLE 40 MG INJ IV SCH (06:17)
[2016-11-04] MEDS: INSULIN ASPART [NOVOLOG] 3 ML PEN SC SCH ×4 (07:50→21:21)
[2016-11-04 08:01] LABS: EOSINOPHILS # 0.1 10^3/ul (0.0-0.5); LYMPHOCYTES # 0.8 10^3/ul (0.8-2.9); MONOCYTE # 0.5 10^3/ul (0.3-0.9); NEUTROPHIL # 10.4 10^3/ul (1.6-7.5)
[2016-11-04 08:03] LABS: ANISOCYTOSIS 1+
[2016-11-04 08:13] VITALS: BP 126/63; RESP 18
[2016-11-04] MEDS: ALLOPURINOL 300 MG TAB PO SCH (08:32)
[2016-11-04] MEDS: DOCUSATE SODIUM 100 MG CAP PO SCH ×2 (08:32→21:19)
--- NOTE | 2016-11-04 11:04 | PN ---
DATE: 11/04/2016 SUBJECTIVE DATA: Denies any abdominal pain. Denies any nausea or vomiting. OBJECTIVE DATA: VITAL SIGNS: Temperature 98.0, pulse is 74, respiratory rate 18, blood pressure 126/63, oxygen saturation 97% on room air. GENERAL: This is a well-built, well-nourished male sitting in the bed in no apparent distress. HEENT: Head normocephalic and atraumatic. Eyes: Anicteric sclerae. Conjunctivae clear. ENT: Nasal septum is midline. Oral mucosa is moist. NECK: Supple. No JVD noticed. RESPIRATORY: Bilaterally clear to auscultation. No adventitious breath sounds heard. No use of accessory muscles of respiration. CARDIAC: Regular rate and rhythm. No murmurs heard. ABDOMEN: Soft, nontender and nondistended. Bowel sounds positive in all 4 quadrants. GENITOURINARY: Deferred. EXTREMITIES: No cyanosis, no clubbing, no edema. Peripheral pulses are palpable. NEUROLOGIC: Cranial nerves II through XII grossly intact. No focal deficits. PSYCHIATRIC: Normal mood and affect. SKIN: Clean, dry and intact. LABORATORY AND DIAGNOSTIC DATA: WBC 12.8, hemoglobin 11.1, hematocrit 32.4, platelet count 218. Sodium 136, potassium 3.6, chloride 101, carbon dioxide 26 , anion gap 13, BUN 8, creatinine 0.39, glucose 101, calcium 8.2. Uric acid 1.5. ASSESSMENT AND PLAN: 1. Diffuse large B-cell lymphoma (DLBCL). The patient was initiated on chemotherapy. Will continue to monitor the patient for any tumor lysis syndrome. 2. Large partially obstructing gastric antral mass with extensive ulceration. Status post esophagogastroduodenoscopy. Stenting felt unnecessary as the patient has a patent gastrojejunostomy. 3. Intractable nausea and vomiting secondary to #1 and #2. Continue antiemetics on prokinetics. 4. Type 2 diabetes mellitus. Hemoglobin A1c 6.8. Diet controlled. Will avoid giving any home medications at this time since the patient has been initiated on chemotherapy. Nevertheless, the patient's random blood glucose is within normal limits. 5. Fluid, electrolytes and nutrition. Continue carbohydrate controlled diet. 6. Deep venous thrombosis prophylaxis. Bilateral sequential compression devices. 7. Gastrointestinal prophylaxis. Proton pump inhibitors. 8. Plan. Pending discharge because of pending approval of home medications by insurance before discharge. The patient is clinically stable to be discharged. Case discussed with Dr. Villa. JEAN IVLLA MD, AM/AMBROSE Conf#: [id number] DID#: [id number]
--- NOTE | 2016-11-04 12:23 | CONS ---
Date/Time of Note Date/Time of Note DATE: 11/04/16 TIME: 12:20 Assessment/Plan Assessment/Plan Chief Complaint/Hosp Course The patient is a 61 year old male with recent diagnosis of gastric lymphoma in [place], with nausea and vomiting due to gastric outlet obstruction. 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 THe lymphoma has a Ki 67 high at 95%. BCL2 and BCL6 positive, FISH pending for BCL2, BCL6 and Myc. Given double expression of BCL2 and BCL6, pt has been started on R-EPOCH chemotherapy until FISH results return. Problems: Additional Assessment/Plan -s/p chemotherapy which he tolerated very well Rituximab 375 mg IV D1 Etoposide 50 mg/m2 IV over 24 hours D1-4 Doxorubicin 10 mg/m2 IV over 24 hours D1-4 Vincristine 0.4 mg/m2 IV over 24 hours D1-4 Cyclophosphamide 750 mg/m2 IV over 15 minutes D5 Prednisone 60 mg/m2 PO D1-5 - Patient needs neupogen 300 mcg x 10 days or neulasta 6 mg subcutaneous x 1 starting D6. pt has received 2 doses. Neupogen is now covered by insurance. will give script for remaining days and then patient can be discharged - Check LDH, uric acid daily to monitor for tumor lysis, will continue allopurinol with chemotherapy as tumor lysis prophylaxis, on bactrim 3x/week prophylaxis - TTE shows normal EF. HIV, hepatitis panel negative - bone marrow bx performed 10/30/16, shows no evidence of involvement of malignant lymphoma in the bone marrow - FISH for BCL6 positive, but negative for BCL2 and MYC, thus not double or triple hit. Patient can received R-CHOP chemotherapy for the next cycle when seen as an outpatient. Order already submitted. -continue, bactrim ppx, allopurinol, colace and zofran prn - Patient receiving zofran prn, reglan atc - will place case management order for patient to follow up with Dr. Stephanie Quiñones upon discharge and outpatient PET/CT - ok to discharge from my perspective once neulasta or neupogen approved. RN to provide injection teaching. Consultation Date/Type/Reason Admit Date/Time Oct 22, 2016 at 19:46 Initial Consult Date 10/24/16 Type of Consultation: Hematology/Oncology Reason for Consultation diffuse large b cell lymphoma Referring Provider: POOJA VILLA 24 HR Interval Summary Free Text/Dictation no acute overnight events. pt continues on Neupogen Exam/Review of Systems Vital Signs Vitals Vital Signs Date Time Temp Pulse Resp B/P Pulse Ox O2 Delivery O2 Flow Rate FiO2 11/04/16 08:13 98.0 74 18 126/63 97 11/02/16 20:38 Nasal Cannula 1 Intake and Output 11/03/16 11/03/16 11/04/16 14:59 22:59 06:59 Intake Total 1380 ml 1000 ml Balance 1380 ml 1000 ml Exam Constitutional: alert, oriented Psych: no complaints Head: atraumatic, normocephalic Eyes: nl conjunctiva ENMT: nl external ears & nose Neck: non-tender, supple Respiratory: clear to auscultation Cardiovascular: nl pulses, regular rate and rhythm Gastrointestinal: soft Musculoskeletal: nl extremities to inspection, nl gait and stance Results Result Diagram: 11/04/16 0420 11/04/16 0420 Results 24 hrs Laboratory Tests Test 11/03/16 17:21 11/03/16 21:26 11/04/16 04:20 11/04/16 08:08 Bedside Glucose 155 155 109 Alanine Aminotransferase (ALT/SGPT) 28 Albumin 2.7 L Albumin/Globulin Ratio 1.08 Alkaline Phosphatase 85 Anion Gap 13 Anisocytosis 1+ Aspartate Amino Transf (AST/SGOT) 12 L Band Neutrophils % 8.0 H Basophils # Basophils % Blood Morphology Comment Blood Urea Nitrogen 8 Calcium Level 8.2 L Carbon Dioxide Level 26 Chloride Level 101 Creatinine 0.39 L Direct Bilirubin 0.00 Eosinophils # 0.1 Eosinophils % 1.0 Globulin 2.50 Glucose Level 101 Hematocrit 32.4 L Hemoglobin 11.1 L Indirect Bilirubin 0.5 Lactate Dehydrogenase 580 Lymphocytes # 0.8 Lymphocytes % 6.0 L Mean Corpuscular Hemoglobin 29.7 Mean Corpuscular Hemoglobin Concent 34.4 Mean Corpuscular Volume 86.3 Mean Platelet Volume 6.6 L Monocytes # 0.5 Monocytes % 4.0 Neutrophils # 10.4 H Neutrophils % 81.0 H Nucleated Red Blood Cells # Nucleated Red Blood Cells % Platelet Count 218 # Potassium Level 3.6 Red Blood Count 3.75 L Red Cell Distribution Width 13.7 Sodium Level 136 Total Bilirubin 0.5 Total Protein 5.2 L Uric Acid 1.5 L White Blood Count 12.8 #H Medications Medications Current Medications Zolpidem Tartrate (Ambien) 5 mg HS PRN PO INSOMNIA Last administered on 22:29; Admin Dose 5 MG; Start 10/22/16 at 22:30 Docusate Sodium (Colace) 100 mg BID PO Last administered on 11/04/16 08:32; Admin Dose 100 MG; Start 10/22/16 at 23:30 Ondansetron HCl (Zofran Inj) 4 mg Q6H PRN IV NAUSEA AND/OR VOMITING Last administered on 11/02/16 10:43; Admin Dose 4 MG; Start 10/22/16 at 23:30 Acetaminophen (Tylenol Tab) 650 mg Q6H PRN PO PAIN AND OR ELEVATED TEMP; Start 10/22/16 at 23:30 Pantoprazole (Protonix Iv) 40 mg DAILY@06 IV Last administered on 11/04/16 06: 17; Admin Dose 40 MG; Start 10/23/16 at 06:00 Diagnostic Test (Pha) 1 ea 1 ea 02 XX Last administered on 11/02/16 01:10; Admin Dose 1 EA; Start 10/23/16 at 02:00 Sodium Chloride (NS) 1,000 ml @ 80 mls/hr [id number] IV Last administered on 00:35; Admin Dose 80 MLS/HR; Start 10/22/16 at 23:30 Miscellaneous Information 1 ea NOTE XX ; Start 10/22/16 at 23:30 Glucose (Glutose) 15 gm Q15M PRN PO DECREASED GLUCOSE; Start 10/22/16 at 23:30 Glucose (Glutose) 22.5 gm Q15M PRN PO DECREASED GLUCOSE; Start 10/22/16 at 23: 30 Dextrose (D50w Syringe) 25 ml Q15M PRN IV DECREASED GLUCOSE; Start 10/22/16 at 23:30 Dextrose (D50w Syringe) 50 ml Q15M PRN IV DECREASED GLUCOSE; Start 10/22/16 at 23:30 Glucagon (Glucagen) 1 mg Q15M PRN IM DECREASED GLUCOSE; Start 10/22/16 at 23: 30 Glucose (Glutose) 15 gm Q15M PRN BUCCAL DECREASED GLUCOSE; Start 10/22/16 at 23:30 Metoclopramide HCl (Reglan) 10 mg Q6 IV Last administered on 11/04/16 11:16; Admin Dose 10 MG; Start 10/23/16 at 14:30 Allopurinol 300 mg 300 mg DAILY PO Last administered on 11/04/16 08:32; Admin Dose 300 MG; Start 10/26/16 at 09:00 Ondansetron HCl/ Dextrose (Zofran Inj/D5W) 54 ml @ 108 mls/hr Q6H PRN IV NAUSEA AND/OR VOMITING; Start 10/26/16 at 14:00 Diphenhydramine HCl (Benadryl) 25 mg Q6H PRN IV ALLERGIC REACTION; Start 10/26 at 14:00 Dexamethasone (Decadron) 8 mg ONCE PRN IV ALLERGIC REACTION; Start 10/26/16 at 15:00; Stop 01/24/17 at 14:59 Filgrastim (Neupogen) 300 mcg DAILY@17 SC Last administered on 11/03/16 17:25; Admin Dose 300 MCG; Start 11/01/16 at 17:00 Trimethoprim/ Sulfamethoxazole (Bactrim (Ds)) 1 tab TuThSa@09 PO Last administered on 11/02/16 08:47; Admin Dose 1 TAB; Start 10/31/16 at 09:00 Magnesium Hydroxide (Milk Of Mag) 30 ml BID PRN PO CONSTIPATION; Start 10/31/16 at 19:00 STEPHANIE QUIÑONES M.D. Nov 04, 2016 12:23
[2016-11-04 19:45] VITALS: BP 115/58; RESP 20
[2016-11-04] MEDS: FILGRASTIM 300 MCG INJ SC SCH (20:06)
[2016-11-05] MEDS: METOCLOPRAMIDE 10 MG INJ IV SCH ×4 (01:02→18:02)
[2016-11-05] MEDS: SOD CHLORIDE 0.9% 1,000 ML IV SCH ×2 (01:02→12:30)
[2016-11-05] MEDS: ACCUCHECK XX SCH (02:18)
[2016-11-05 05:15] LABS: BASOPHILS % 0.5 % (0.0-2.0); EOSINOPHILS # 0.2 10^3/ul (0.0-0.5); EOSINOPHILS % 2.2 % (0.0-7.0); HEMATOCRIT 31.1 % (42.0-52.0); HEMOGLOBIN 10.9 g/dl (14.0-18.0); LYMPHOCYTES # 0.6 10^3/ul (0.8-2.9); LYMPHOCYTES % 7.9 % (15.0-51.0); MEAN CORPUSCULAR HEMOGLOBIN 30.1 pg (29.0-33.0); MEAN CORPUSCULAR HGB CONC 35.1 g/dl (32.0-37.0); MEAN CORPUSCULAR VOLUME 85.8 fl (82.0-101.0); MEAN PLATELET VOLUME 6.3 fl (7.4-10.4); MONOCYTES % 0.4 % (0.0-11.0); NEUTROPHIL # 7.3 10^3/ul (1.6-7.5); PLATELET COUNT 191 10^3/UL (140-440); RED BLOOD COUNT 3.62 10^6/ul (4.70-6.10); RED CELL DISTRIBUTION WIDTH 13.5 % (11.5-14.5); UNCORRECTED WBC 8.3 10^3/ul (4.8-10.8); WHITE BLOOD COUNT 8.3 10^3/ul (4.8-10.8)
[2016-11-05 05:29] LABS: ALBUMIN 2.7 g/dl (3.3-4.9)
[2016-11-05 05:30] LABS: POTASSIUM 3.5 mmol/L (3.5-5.1)
[2016-11-05 05:32] LABS: ALBUMIN/GLOBULIN RATIO 1.08; BILIRUBIN,INDIRECT 0.5 mg/dl (0-1.1); BILIRUBIN,TOTAL 0.5 mg/dl (0.2-1.3); CREATININE 0.37 mg/dl (0.61-1.24); TOTAL PROTEIN 5.2 g/dl (6.1-8.1)
[2016-11-05 05:33] LABS: CALCIUM 8.1 mg/dl (8.4-10.2)
[2016-11-05 05:35] LABS: URIC ACID 1.3 mg/dl (3.1-7.9)
[2016-11-05 05:38] LABS: SUSPECT 1
[2016-11-05 05:39] LABS: CONDITION 1; LH ANALYZER COMMENTS 1
[2016-11-05] MEDS: PANTOPRAZOLE 40 MG INJ IV SCH (06:10)
--- NOTE | 2016-11-05 07:35 | PN ---
Date/Time of Note Date/Time of Note DATE: 11/05/16 TIME: 07:35 Assessment/Plan VTE Prophylaxis VTE Prophylaxis Intervention: SCD's Lines/Catheters IV [facility] Portacath Urinary Cath still in place: No Assessment/Plan Chief Complaint/Hosp Course 1. Diffuse large B-cell lymphoma (DLBCL). The patient was initiated on chemotherapy. Will continue to monitor the patient for any tumor lysis syndrome. 2. Large partially obstructing gastric antral mass with extensive ulceration. Status post esophagogastroduodenoscopy. Stenting felt unnecessary as the patient has patent gastrojejunostomy. 3. Intractable nausea and vomiting secondary to #1 and #2. Continue antiemetics and prokinetics. 4. Type 2 diabetes mellitus. Hemoglobin A1c 6.8. Diet controlled. Will avoid giving any new medications at this time since the patient has been initiated on chemotherapy. Nevertheless, the patient's random blood glucose is within normal limits. 5. Fluid, electrolytes and nutrition. Continue carbohydrate controlled diet. 6. Deep venous thrombosis prophylaxis. Bilateral sequential compression devices. 7. Gastrointestinal prophylaxis. Proton pump inhibitors. 8. Continue chemotherapy as per oncology. Pending discharge. Await approval of home medications by insurance before discharge. The patient is clinically stable to be discharged. Case discussed with Dr. Ferris. Problems: Subjective 24 Hr Interval Summary Free Text/Dictation Vital signs stable. Constipated. Exam/Review of Systems Vital Signs Vitals Vital Signs Date Time Temp Pulse Resp B/P Pulse Ox O2 Delivery O2 Flow Rate FiO2 11/04/16 19:45 97.5 75 20 115/58 98 11/04/16 08:00 Nasal Cannula 3 Intake and Output 11/04/16 11/04/16 11/05/16 15:00 23:00 07:00 Intake Total 1800 ml 960 ml Balance 1800 ml 960 ml Exam GENERAL: This is a well-built, well-nourished male sitting in the bed in no apparent distress. HEENT: Head normocephalic and atraumatic. Eyes: Anicteric sclerae. Conjunctivae clear. ENT: Nasal septum is midline. Oral mucosa is moist. NECK: Supple. No JVD noticed. RESPIRATORY: Bilaterally clear to auscultation. No adventitious breath sounds heard. No use of accessory muscles of respiration. CARDIAC: Regular rate and rhythm. No murmurs heard. ABDOMEN: Soft, nontender and nondistended. Bowel sounds positive in all 4 quadrants. GENITOURINARY: Deferred. EXTREMITIES: No cyanosis, no clubbing, no edema. Peripheral pulses are palpable. NEUROLOGIC: Cranial nerves II through XII grossly intact. No focal deficits. PSYCHIATRIC: Normal mood and affect. SKIN: Clean, dry and intact. Results Result Diagram: 11/05/16 0430 11/05/16 0430 Results 24 hrs Laboratory Tests Test 11/04/16 08:08 11/04/16 12:18 11/04/16 17:59 11/04/16 21:18 Bedside Glucose 109 213 152 196 Test 11/05/16 02:17 11/05/16 04:30 Bedside Glucose 116 Alanine Aminotransferase (ALT/SGPT) 23 Albumin 2.7 L Albumin/Globulin Ratio 1.08 Alkaline Phosphatase 97 Anion Gap 14 Aspartate Amino Transf (AST/SGOT) 14 L Basophils # 0.0 Basophils % 0.5 Blood Morphology Comment Blood Urea Nitrogen 6 L Calcium Level 8.1 L Carbon Dioxide Level 26 Chloride Level 100 Creatinine 0.37 L Direct Bilirubin 0.00 Eosinophils # 0.2 Eosinophils % 2.2 Globulin 2.50 Glucose Level 102 Hematocrit 31.1 L Hemoglobin 10.9 L Indirect Bilirubin 0.5 Lactate Dehydrogenase 606 Lymphocytes # 0.6 L Lymphocytes % 7.9 L Mean Corpuscular Hemoglobin 30.1 Mean Corpuscular Hemoglobin Concent 35.1 Mean Corpuscular Volume 85.8 Mean Platelet Volume 6.3 L Monocytes # 0.0 L Monocytes % 0.4 Neutrophils # 7.3 Neutrophils % 89.0 H Nucleated Red Blood Cells # 0.0 Nucleated Red Blood Cells % 0.0 Platelet Count 191 Potassium Level 3.5 Red Blood Count 3.62 L Red Cell Distribution Width 13.5 Sodium Level 136 Total Bilirubin 0.5 Total Protein 5.2 L Uric Acid 1.3 L White Blood Count 8.3 # Medications Medications Current Medications Zolpidem Tartrate (Ambien) 5 mg HS PRN PO INSOMNIA Last administered on 22:29; Admin Dose 5 MG; Start 10/22/16 at 22:30 Docusate Sodium (Colace) 100 mg BID PO Last administered on 11/04/16 21:19; Admin Dose 100 MG; Start 10/22/16 at 23:30 Ondansetron HCl (Zofran Inj) 4 mg Q6H PRN IV NAUSEA AND/OR VOMITING Last administered on 11/02/16 10:43; Admin Dose 4 MG; Start 10/22/16 at 23:30 Acetaminophen (Tylenol Tab) 650 mg Q6H PRN PO PAIN AND OR ELEVATED TEMP; Start 10/22/16 at 23:30 Pantoprazole (Protonix Iv) 40 mg DAILY@06 IV Last administered on 11/05/16 06: 10; Admin Dose 40 MG; Start 10/23/16 at 06:00 Diagnostic Test (Pha) 1 ea 1 ea 02 XX Last administered on 11/05/16 02:18; Admin Dose 1 EA; Start 10/23/16 at 02:00 Sodium Chloride (NS) 1,000 ml @ 80 mls/hr [id number] IV Last administered on 11/05 01:02; Admin Dose 80 MLS/HR; Start 10/22/16 at 23:30 Miscellaneous Information 1 ea NOTE XX ; Start 10/22/16 at 23:30 Glucose (Glutose) 15 gm Q15M PRN PO DECREASED GLUCOSE; Start 10/22/16 at 23:30 Glucose (Glutose) 22.5 gm Q15M PRN PO DECREASED GLUCOSE; Start 10/22/16 at 23: 30 Dextrose (D50w Syringe) 25 ml Q15M PRN IV DECREASED GLUCOSE; Start 10/22/16 at 23:30 Dextrose (D50w Syringe) 50 ml Q15M PRN IV DECREASED GLUCOSE; Start 10/22/16 at 23:30 Glucagon (Glucagen) 1 mg Q15M PRN IM DECREASED GLUCOSE; Start 10/22/16 at 23: 30 Glucose (Glutose) 15 gm Q15M PRN BUCCAL DECREASED GLUCOSE; Start 10/22/16 at 23:30 Metoclopramide HCl (Reglan) 10 mg Q6 IV Last administered on 11/05/16 06:10; Admin Dose 10 MG; Start 10/23/16 at 14:30 Allopurinol 300 mg 300 mg DAILY PO Last administered on 11/04/16 08:32; Admin Dose 300 MG; Start 10/26/16 at 09:00 Ondansetron HCl/ Dextrose (Zofran Inj/D5W) 54 ml @ 108 mls/hr Q6H PRN IV NAUSEA AND/OR VOMITING; Start 10/26/16 at 14:00 Diphenhydramine HCl (Benadryl) 25 mg Q6H PRN IV ALLERGIC REACTION; Start 10/26 at 14:00 Dexamethasone (Decadron) 8 mg ONCE PRN IV ALLERGIC REACTION; Start 10/26/16 at 15:00; Stop 01/24/17 at 14:59 Filgrastim (Neupogen) 300 mcg DAILY@17 SC Last administered on 11/04/16 20:06; Admin Dose 300 MCG; Start 11/01/16 at 17:00 Trimethoprim/ Sulfamethoxazole (Bactrim (Ds)) 1 tab TuThSa@09 PO Last administered on 11/02/16 08:47; Admin Dose 1 TAB; Start 10/31/16 at 09:00 Magnesium Hydroxide (Milk Of Mag) 30 ml BID PRN PO CONSTIPATION; Start 10/31/16 at 19:00 JEAN AUGUSTINE NP Nov 05, 2016 07:35
[2016-11-05] MEDS: INSULIN ASPART [NOVOLOG] 3 ML PEN SC SCH ×4 (07:50→20:47)
[2016-11-05 08:00] LABS: PHOSPHORUS 3.7 mg/dl (2.5-4.9)
[2016-11-05 08:01] LABS: MAGNESIUM 1.8 mg/dl (1.7-2.5)
[2016-11-05 08:13] VITALS: BP 120/56; RESP 18
[2016-11-05] MEDS: TRIMETHOPRIM/SULFAMETHOX (DS) TAB PO SCH (09:44)
[2016-11-05] MEDS: ALLOPURINOL 300 MG TAB PO SCH (09:44)
[2016-11-05] MEDS: DOCUSATE SODIUM 100 MG CAP PO SCH ×2 (09:44→20:14)
[2016-11-05] MEDS ORDERED: BISACODYL (EC) 5 MG TAB PO PRN (12:00)
[2016-11-05] MEDS: POLYETHYLENE GLYCOL 17 GM PACKET PO SCH ×2 (18:00→20:14)
[2016-11-05] MEDS: FILGRASTIM 300 MCG INJ SC SCH (18:05)
[2016-11-05 19:55] VITALS: BP 99/61; RESP 20
[2016-11-06] MEDS: SOD CHLORIDE 0.9% 1,000 ML IV SCH ×2 (01:00→04:49)
[2016-11-06] MEDS: ACCUCHECK XX SCH ×2 (02:00→22:52)
[2016-11-06 05:29] LABS: ALBUMIN 2.6 g/dl (3.3-4.9); URIC ACID 1.2 mg/dl (3.1-7.9)
[2016-11-06 05:30] LABS: POTASSIUM 3.9 mmol/L (3.5-5.1)
[2016-11-06 05:32] LABS: ALBUMIN/GLOBULIN RATIO 1.13; BILIRUBIN,INDIRECT 0.5 mg/dl (0-1.1); BILIRUBIN,TOTAL 0.5 mg/dl (0.2-1.3); CREATININE 0.41 mg/dl (0.61-1.24); TOTAL PROTEIN 4.9 g/dl (6.1-8.1)
[2016-11-06 05:33] LABS: CALCIUM 8.3 mg/dl (8.4-10.2)
[2016-11-06] MEDS: METOCLOPRAMIDE 10 MG INJ IV SCH ×5 (05:57→23:16)
[2016-11-06] MEDS: PANTOPRAZOLE 40 MG INJ IV SCH (05:57)
[2016-11-06] MEDS: INSULIN ASPART [NOVOLOG] 3 ML PEN SC SCH ×4 (07:50→21:00)
[2016-11-06 08:11] VITALS: BP 116/55; RESP 16
--- NOTE | 2016-11-06 08:50 | PN ---
Date/Time of Note Date/Time of Note DATE: 11/06/16 TIME: 08:49 Assessment/Plan VTE Prophylaxis VTE Prophylaxis Intervention: SCD's Lines/Catheters [facility] port[facility]a-cath Urinary Cath still in place: No Assessment/Plan Chief Complaint/Hosp Course 1. Diffuse large B-cell lymphoma (DLBCL). The patient was initiated on chemotherapy. Will continue to monitor the patient for any tumor lysis syndrome. 2. Large partially obstructing gastric antral mass with extensive ulceration. Status post esophagogastroduodenoscopy. Stenting felt unnecessary as the patient has patent gastrojejunostomy. 3. Intractable nausea and vomiting secondary to #1 and #2. Continue antiemetics and prokinetics. 4. Type 2 diabetes mellitus. Hemoglobin A1c 6.8. Diet controlled. Will avoid giving any new medications at this time since the patient has been initiated on chemotherapy. Nevertheless, the patient's random blood glucose is within normal limits. 5. Fluid, electrolytes and nutrition. Continue carbohydrate controlled diet. 6. Deep venous thrombosis prophylaxis. Bilateral sequential compression devices. 7. Gastrointestinal prophylaxis. Proton pump inhibitors. 8. Continue chemotherapy as per oncology. Pending discharge. Await approval of home medications by insurance before discharge. The patient is clinically stable to be discharged. Case discussed with Dr. Ferris. Problems: Subjective 24 Hr Interval Summary Free Text/Dictation Denies any complaints. Exam/Review of Systems Vital Signs Vitals Vital Signs Date Time Temp Pulse Resp B/P Pulse Ox O2 Delivery O2 Flow Rate FiO2 11/06/16 08:11 98.2 71 16 116/55 95 11/04/16 08:00 Nasal Cannula 3 Intake and Output 11/05/16 11/05/16 11/06/16 15:00 23:00 07:00 Intake Total 1660 ml 600 ml Output Total 1200 ml 1020 ml Balance 460 ml -420 ml Exam GENERAL: This is a well-built, well-nourished male sitting in the bed in no apparent distress. HEENT: Head normocephalic and atraumatic. Eyes: Anicteric sclerae. Conjunctivae clear. ENT: Nasal septum is midline. Oral mucosa is moist. NECK: Supple. No JVD noticed. RESPIRATORY: Bilaterally clear to auscultation. No adventitious breath sounds heard. No use of accessory muscles of respiration. CARDIAC: Regular rate and rhythm. No murmurs heard. ABDOMEN: Soft, nontender and nondistended. Bowel sounds positive in all 4 quadrants. GENITOURINARY: Deferred. EXTREMITIES: No cyanosis, no clubbing, no edema. Peripheral pulses are palpable. NEUROLOGIC: Cranial nerves II through XII grossly intact. No focal deficits. PSYCHIATRIC: Normal mood and affect. SKIN: Clean, dry and intact. Results Result Diagram: 11/05/16 0430 11/06/16 0430 Results 24 hrs Laboratory Tests Test 11/05/16 12:46 11/05/16 17:49 11/05/16 20:12 11/06/16 01:40 Bedside Glucose 194 149 225 H 122 Test 11/06/16 04:30 11/06/16 07:51 Alanine Aminotransferase (ALT/SGPT) 24 Albumin 2.6 L Albumin/Globulin Ratio 1.13 Alkaline Phosphatase 88 Anion Gap 12 Aspartate Amino Transf (AST/SGOT) 12 L Blood Urea Nitrogen 4 L Calcium Level 8.3 L Carbon Dioxide Level 26 Chloride Level 100 Creatinine 0.41 L Direct Bilirubin 0.00 Globulin 2.30 Glucose Level 104 Indirect Bilirubin 0.5 Lactate Dehydrogenase 444 Potassium Level 3.9 Sodium Level 134 L Total Bilirubin 0.5 Total Protein 4.9 L Uric Acid 1.2 L Bedside Glucose 112 Medications Medications Current Medications Zolpidem Tartrate (Ambien) 5 mg HS PRN PO INSOMNIA Last administered on 22:29; Admin Dose 5 MG; Start 10/22/16 at 22:30 Docusate Sodium (Colace) 100 mg BID PO Last administered on 11/05/16 20:14; Admin Dose 100 MG; Start 10/22/16 at 23:30 Ondansetron HCl (Zofran Inj) 4 mg Q6H PRN IV NAUSEA AND/OR VOMITING Last administered on 11/02/16 10:43; Admin Dose 4 MG; Start 10/22/16 at 23:30 Acetaminophen (Tylenol Tab) 650 mg Q6H PRN PO PAIN AND OR ELEVATED TEMP; Start 10/22/16 at 23:30 Pantoprazole (Protonix Iv) 40 mg DAILY@06 IV Last administered on 11/06/16 05: 57; Admin Dose 40 MG; Start 10/23/16 at 06:00 Diagnostic Test (Pha) 1 ea 1 ea 02 XX Last administered on 11/05/16 02:18; Admin Dose 1 EA; Start 10/23/16 at 02:00 Sodium Chloride (NS) 1,000 ml @ 80 mls/hr [id number] IV Last administered on 11/06 04:49; Admin Dose 80 MLS/HR; Start 10/22/16 at 23:30 Miscellaneous Information 1 ea NOTE XX ; Start 10/22/16 at 23:30 Glucose (Glutose) 15 gm Q15M PRN PO DECREASED GLUCOSE; Start 10/22/16 at 23:30 Glucose (Glutose) 22.5 gm Q15M PRN PO DECREASED GLUCOSE; Start 10/22/16 at 23: 30 Dextrose (D50w Syringe) 25 ml Q15M PRN IV DECREASED GLUCOSE; Start 10/22/16 at 23:30 Dextrose (D50w Syringe) 50 ml Q15M PRN IV DECREASED GLUCOSE; Start 10/22/16 at 23:30 Glucagon (Glucagen) 1 mg Q15M PRN IM DECREASED GLUCOSE; Start 10/22/16 at 23: 30 Glucose (Glutose) 15 gm Q15M PRN BUCCAL DECREASED GLUCOSE; Start 10/22/16 at 23:30 Metoclopramide HCl (Reglan) 10 mg Q6 IV Last administered on 11/06/16 05:57; Admin Dose 10 MG; Start 10/23/16 at 14:30 Allopurinol 300 mg 300 mg DAILY PO Last administered on 11/05/16 09:44; Admin Dose 300 MG; Start 10/26/16 at 09:00 Ondansetron HCl/ Dextrose (Zofran Inj/D5W) 54 ml @ 108 mls/hr Q6H PRN IV NAUSEA AND/OR VOMITING; Start 10/26/16 at 14:00 Diphenhydramine HCl (Benadryl) 25 mg Q6H PRN IV ALLERGIC REACTION; Start 10/26 at 14:00 Dexamethasone (Decadron) 8 mg ONCE PRN IV ALLERGIC REACTION; Start 10/26/16 at 15:00; Stop 01/24/17 at 14:59 Filgrastim (Neupogen) 300 mcg DAILY@17 SC Last administered on 11/05/16 18:05 ; Admin Dose 300 MCG; Start 11/01/16 at 17:00 Trimethoprim/ Sulfamethoxazole (Bactrim (Ds)) 1 tab TuThSa@09 PO Last administered on 11/05/16 09:44; Admin Dose 1 TAB; Start 10/31/16 at 09:00 Magnesium Hydroxide (Milk Of Mag) 30 ml BID PRN PO CONSTIPATION; Start 10/31/16 at 19:00 Polyethylene Glycol (Miralax) 17 gm BID PO Last administered on 11/05/16 20:14 ; Admin Dose 17 GM; Start 11/05/16 at 13:00 Bisacodyl (Dulcolax) 10 mg DAILY PRN PO CONSTIPATION; Start 11/05/16 at 12:00 JEAN AUGUSTINE NP Nov 06, 2016 08:50
[2016-11-06] MEDS: ALLOPURINOL 300 MG TAB PO SCH (08:53)
[2016-11-06] MEDS: DOCUSATE SODIUM 100 MG CAP PO SCH ×2 (08:53→20:51)
[2016-11-06] MEDS: POLYETHYLENE GLYCOL 17 GM PACKET PO SCH ×2 (08:53→20:51)
--- NOTE | 2016-11-06 08:59 | CONS ---
Date/Time of Note Date/Time of Note DATE: 11/06/16 TIME: 08:58 Assessment/Plan Assessment/Plan Chief Complaint/Hosp Course The patient is a 61 year old male with recent diagnosis of gastric lymphoma in [place], with nausea and vomiting due to gastric outlet obstruction. 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 THe lymphoma has a Ki 67 high at 95%. BCL2 and BCL6 positive, FISH pending for BCL2, BCL6 and Myc. Given double expression of BCL2 and BCL6, pt has been started on R-EPOCH chemotherapy until FISH results return. Problems: Additional Assessment/Plan -s/p chemotherapy which he tolerated very well Rituximab 375 mg IV D1 Etoposide 50 mg/m2 IV over 24 hours D1-4 Doxorubicin 10 mg/m2 IV over 24 hours D1-4 Vincristine 0.4 mg/m2 IV over 24 hours D1-4 Cyclophosphamide 750 mg/m2 IV over 15 minutes D5 Prednisone 60 mg/m2 PO D1-5 - Patient needs neupogen 300 mcg x 10 days or neulasta 6 mg subcutaneous x 1 starting D6. pt has received 2 doses. Neupogen is now covered by insurance. will give script for remaining days and then patient can be discharged - Check LDH, uric acid daily to monitor for tumor lysis, will continue allopurinol with chemotherapy as tumor lysis prophylaxis, on bactrim 3x/week prophylaxis - TTE shows normal EF. HIV, hepatitis panel negative - bone marrow bx performed 10/30/16, shows no evidence of involvement of malignant lymphoma in the bone marrow - FISH for BCL6 positive, but negative for BCL2 and MYC, thus not double or triple hit. Patient can received R-CHOP chemotherapy for the next cycle when seen as an outpatient. Order already submitted. -continue, bactrim ppx, allopurinol, colace and zofran prn - Patient receiving zofran prn, reglan atc - will place case management order for patient to follow up with Dr. Stephanie Leblanc upon discharge and outpatient PET/CT - ok to discharge from my perspective once neulasta or neupogen approved. RN to provide injection teaching. Problems: Consultation Date/Type/Reason Admit Date/Time Oct 22, 2016 at 19:46 Initial Consult Date 10/24/16 Type of Consultation: Hematology/Oncology Referring Provider: ALLEN,BOLATITO M. 24 HR Interval Summary Free Text/Dictation Patient doing well, no complaints. Exam/Review of Systems Vital Signs Vitals Vital Signs Date Time Temp Pulse Resp B/P Pulse Ox O2 Delivery O2 Flow Rate FiO2 11/06/16 08:11 98.2 71 16 116/55 95 11/04/16 08:00 Nasal Cannula 3 Intake and Output 11/05/16 11/05/16 11/06/16 15:00 23:00 07:00 Intake Total 1660 ml 600 ml Output Total 1200 ml 1020 ml Balance 460 ml -420 ml Exam Constitutional: alert, oriented Psych: no complaints Head: atraumatic, normocephalic Eyes: nl conjunctiva ENMT: nl external ears & nose Neck: non-tender, supple Respiratory: clear to auscultation Cardiovascular: nl pulses, regular rate and rhythm Gastrointestinal: soft Musculoskeletal: nl extremities to inspection, nl gait and stance Results Result Diagram: 11/05/16 0430 11/06/16 0430 Results 24 hrs Laboratory Tests Test 11/05/16 12:46 11/05/16 17:49 11/05/16 20:12 11/06/16 01:40 Bedside Glucose 194 149 225 H 122 Test 11/06/16 04:30 11/06/16 07:51 Alanine Aminotransferase (ALT/SGPT) 24 Albumin 2.6 L Albumin/Globulin Ratio 1.13 Alkaline Phosphatase 88 Anion Gap 12 Aspartate Amino Transf (AST/SGOT) 12 L Blood Urea Nitrogen 4 L Calcium Level 8.3 L Carbon Dioxide Level 26 Chloride Level 100 Creatinine 0.41 L Direct Bilirubin 0.00 Globulin 2.30 Glucose Level 104 Indirect Bilirubin 0.5 Lactate Dehydrogenase 444 Potassium Level 3.9 Sodium Level 134 L Total Bilirubin 0.5 Total Protein 4.9 L Uric Acid 1.2 L Bedside Glucose 112 Medications Medications Current Medications Zolpidem Tartrate (Ambien) 5 mg HS PRN PO INSOMNIA Last administered on 22:29; Admin Dose 5 MG; Start 10/22/16 at 22:30 Docusate Sodium (Colace) 100 mg BID PO Last administered on 11/06/16 08:53; Admin Dose 100 MG; Start 10/22/16 at 23:30 Ondansetron HCl (Zofran Inj) 4 mg Q6H PRN IV NAUSEA AND/OR VOMITING Last administered on 11/02/16 10:43; Admin Dose 4 MG; Start 10/22/16 at 23:30 Acetaminophen (Tylenol Tab) 650 mg Q6H PRN PO PAIN AND OR ELEVATED TEMP; Start 10/22/16 at 23:30 Pantoprazole (Protonix Iv) 40 mg DAILY@06 IV Last administered on 11/06/16 05: 57; Admin Dose 40 MG; Start 10/23/16 at 06:00 Diagnostic Test (Pha) 1 ea 1 ea 02 XX Last administered on 11/05/16 02:18; Admin Dose 1 EA; Start 10/23/16 at 02:00 Sodium Chloride (NS) 1,000 ml @ 80 mls/hr [id number] IV Last administered on 11/06 04:49; Admin Dose 80 MLS/HR; Start 10/22/16 at 23:30 Miscellaneous Information 1 ea NOTE XX ; Start 10/22/16 at 23:30 Glucose (Glutose) 15 gm Q15M PRN PO DECREASED GLUCOSE; Start 10/22/16 at 23:30 Glucose (Glutose) 22.5 gm Q15M PRN PO DECREASED GLUCOSE; Start 10/22/16 at 23: 30 Dextrose (D50w Syringe) 25 ml Q15M PRN IV DECREASED GLUCOSE; Start 10/22/16 at 23:30 Dextrose (D50w Syringe) 50 ml Q15M PRN IV DECREASED GLUCOSE; Start 10/22/16 at 23:30 Glucagon (Glucagen) 1 mg Q15M PRN IM DECREASED GLUCOSE; Start 10/22/16 at 23: 30 Glucose (Glutose) 15 gm Q15M PRN BUCCAL DECREASED GLUCOSE; Start 10/22/16 at 23:30 Metoclopramide HCl (Reglan) 10 mg Q6 IV Last administered on 11/06/16 05:57; Admin Dose 10 MG; Start 10/23/16 at 14:30 Allopurinol 300 mg 300 mg DAILY PO Last administered on 11/06/16 08:53; Admin Dose 300 MG; Start 10/26/16 at 09:00 Ondansetron HCl/ Dextrose (Zofran Inj/D5W) 54 ml @ 108 mls/hr Q6H PRN IV NAUSEA AND/OR VOMITING; Start 10/26/16 at 14:00 Diphenhydramine HCl (Benadryl) 25 mg Q6H PRN IV ALLERGIC REACTION; Start 10/26 at 14:00 Dexamethasone (Decadron) 8 mg ONCE PRN IV ALLERGIC REACTION; Start 10/26/16 at 15:00; Stop 01/24/17 at 14:59 Filgrastim (Neupogen) 300 mcg DAILY@17 SC Last administered on 11/05/16 18:05 ; Admin Dose 300 MCG; Start 11/01/16 at 17:00 Trimethoprim/ Sulfamethoxazole (Bactrim (Ds)) 1 tab TuThSa@09 PO Last administered on 11/05/16 09:44; Admin Dose 1 TAB; Start 10/31/16 at 09:00 Magnesium Hydroxide (Milk Of Mag) 30 ml BID PRN PO CONSTIPATION; Start 10/31/16 at 19:00 Polyethylene Glycol (Miralax) 17 gm BID PO Last administered on 11/06/16 08:53 ; Admin Dose 17 GM; Start 11/05/16 at 13:00 Bisacodyl (Dulcolax) 10 mg DAILY PRN PO CONSTIPATION; Start 11/05/16 at 12:00 NEY SORTO MD Nov 06, 2016 08:59
[2016-11-06] MEDS: FILGRASTIM 300 MCG INJ SC SCH (17:21)
[2016-11-06 19:57] VITALS: BP 101/58; RESP 18
[2016-11-07] MEDS: SOD CHLORIDE 0.9% 1,000 ML IV SCH ×3 (02:00→23:51)
[2016-11-07 05:33] LABS: URIC ACID 1.3 mg/dl (3.1-7.9)
[2016-11-07 05:35] LABS: ALBUMIN 2.7 g/dl (3.3-4.9); POTASSIUM 3.9 mmol/L (3.5-5.1)
[2016-11-07 05:37] LABS: BILIRUBIN,INDIRECT 0.6 mg/dl (0-1.1); BILIRUBIN,TOTAL 0.6 mg/dl (0.2-1.3); CREATININE 0.4 mg/dl (0.61-1.24)
[2016-11-07 05:38] LABS: ALBUMIN/GLOBULIN RATIO 1.03; CALCIUM 8.2 mg/dl (8.4-10.2); TOTAL PROTEIN 5.3 g/dl (6.1-8.1)
[2016-11-07] MEDS: PANTOPRAZOLE 40 MG INJ IV SCH (05:40)
[2016-11-07] MEDS: METOCLOPRAMIDE 10 MG INJ IV SCH ×4 (05:41→23:51)
[2016-11-07 07:43] VITALS: BP 98/55; RESP 18
[2016-11-07] MEDS: INSULIN ASPART [NOVOLOG] 3 ML PEN SC SCH ×4 (07:50→21:00)
--- NOTE | 2016-11-07 08:58 | PN ---
Date/Time of Note Date/Time of Note DATE: 11/07/16 TIME: 08:56 Assessment/Plan VTE Prophylaxis VTE Prophylaxis Intervention: SCD's Lines/Catheters IV C[facility]ter Type [facility]from [facility] port-a-cath Urinary Cath still in place: No Assessment/Plan Chief Complaint/Hosp Course 1. Diffuse large B-cell lymphoma (DLBCL). The patient was initiated on chemotherapy. Will continue to monitor the patient for any tumor lysis syndrome. 2. Large partially obstructing gastric antral mass with extensive ulceration. Status post esophagogastroduodenoscopy. Stenting felt unnecessary as the patient has patent gastrojejunostomy. 3. Intractable nausea and vomiting secondary to #1 and #2. Largely resolved. Continue antiemetics and prokinetics. 4. Type 2 diabetes mellitus. Hemoglobin A1c 6.8. Diet controlled. Will avoid giving any new medications at this time since the patient has been initiated on chemotherapy. Nevertheless, the patient's random blood glucose is within normal limits. 5. Constipation. Continue routine stool softeners and PRN laxatives. 6. Fluid, electrolytes and nutrition. Continue carbohydrate controlled diet. 7. Deep venous thrombosis prophylaxis. Bilateral sequential compression devices. 8. Gastrointestinal prophylaxis. Proton pump inhibitors. 9. Continue chemotherapy as per oncology. Pending discharge. Await approval of home medications by insurance before discharge. The patient is clinically stable to be discharged. Case discussed with Dr. Ferris. Problems: Subjective 24 Hr Interval Summary Free Text/Dictation Vital signs remain stable. Constipated. Exam/Review of Systems Vital Signs Vitals Vital Signs Date Time Temp Pulse Resp B/P Pulse Ox O2 Delivery O2 Flow Rate FiO2 11/07/16 07:43 98.2 74 18 98/55 96 11/04/16 08:00 Nasal Cannula 3 Intake and Output 11/06/16 11/06/16 11/07/16 14:59 22:59 06:59 Intake Total 1640 ml 2010 ml Output Total 800 ml Balance 1640 ml 1210 ml Exam GENERAL: This is a well-built, well-nourished male sitting in the bed in no apparent distress. HEENT: Head normocephalic and atraumatic. Eyes: Anicteric sclerae. Conjunctivae clear. ENT: Nasal septum is midline. Oral mucosa is moist. NECK: Supple. No JVD noticed. RESPIRATORY: Bilaterally clear to auscultation. No adventitious breath sounds heard. No use of accessory muscles of respiration. CARDIAC: Regular rate and rhythm. No murmurs heard. ABDOMEN: Soft, nontender and nondistended. Bowel sounds positive in all 4 quadrants. GENITOURINARY: Deferred. EXTREMITIES: No cyanosis, no clubbing, no edema. Peripheral pulses are palpable. NEUROLOGIC: Cranial nerves II through XII grossly intact. No focal deficits. PSYCHIATRIC: Normal mood and affect. SKIN: Clean, dry and intact. Results Result Diagram: 11/05/16 0430 11/07/16 0435 Results 24 hrs Laboratory Tests Test 11/06/16 12:23 11/06/16 17:09 11/06/16 20:03 11/07/16 04:35 Bedside Glucose 246 H 123 159 Alanine Aminotransferase (ALT/SGPT) 24 Albumin 2.7 L Albumin/Globulin Ratio 1.03 Alkaline Phosphatase 92 Anion Gap 12 Aspartate Amino Transf (AST/SGOT) 11 L Blood Urea Nitrogen 5 L Calcium Level 8.2 L Carbon Dioxide Level 29 Chloride Level 99 Creatinine 0.40 L Direct Bilirubin 0.00 Globulin 2.60 Glucose Level 90 Indirect Bilirubin 0.6 Lactate Dehydrogenase 436 Potassium Level 3.9 Sodium Level 136 Total Bilirubin 0.6 Total Protein 5.3 L Uric Acid 1.3 L Test 11/07/16 08:08 Bedside Glucose 98 Medications Medications Current Medications Zolpidem Tartrate (Ambien) 5 mg HS PRN PO INSOMNIA Last administered on 22:29; Admin Dose 5 MG; Start 10/22/16 at 22:30 Docusate Sodium (Colace) 100 mg BID PO Last administered on 11/06/16 20:51; Admin Dose 100 MG; Start 10/22/16 at 23:30 Ondansetron HCl (Zofran Inj) 4 mg Q6H PRN IV NAUSEA AND/OR VOMITING Last administered on 11/02/16 10:43; Admin Dose 4 MG; Start 10/22/16 at 23:30 Acetaminophen (Tylenol Tab) 650 mg Q6H PRN PO PAIN AND OR ELEVATED TEMP; Start 10/22/16 at 23:30 Pantoprazole (Protonix Iv) 40 mg DAILY@06 IV Last administered on 11/07/16 05: 40; Admin Dose 40 MG; Start 10/23/16 at 06:00 Diagnostic Test (Pha) 1 ea 1 ea 02 XX Last administered on 11/05/16 02:18; Admin Dose 1 EA; Start 10/23/16 at 02:00 Sodium Chloride (NS) 1,000 ml @ 80 mls/hr [id number] IV Last administered on 11/06 04:49; Admin Dose 80 MLS/HR; Start 10/22/16 at 23:30 Miscellaneous Information 1 ea NOTE XX ; Start 10/22/16 at 23:30 Glucose (Glutose) 15 gm Q15M PRN PO DECREASED GLUCOSE; Start 10/22/16 at 23:30 Glucose (Glutose) 22.5 gm Q15M PRN PO DECREASED GLUCOSE; Start 10/22/16 at 23: 30 Dextrose (D50w Syringe) 25 ml Q15M PRN IV DECREASED GLUCOSE; Start 10/22/16 at 23:30 Dextrose (D50w Syringe) 50 ml Q15M PRN IV DECREASED GLUCOSE; Start 10/22/16 at 23:30 Glucagon (Glucagen) 1 mg Q15M PRN IM DECREASED GLUCOSE; Start 10/22/16 at 23: 30 Glucose (Glutose) 15 gm Q15M PRN BUCCAL DECREASED GLUCOSE; Start 10/22/16 at 23:30 Metoclopramide HCl (Reglan) 10 mg Q6 IV Last administered on 11/07/16 05:41; Admin Dose 10 MG; Start 10/23/16 at 14:30 Allopurinol 300 mg 300 mg DAILY PO Last administered on 11/06/16 08:53; Admin Dose 300 MG; Start 10/26/16 at 09:00 Ondansetron HCl/ Dextrose (Zofran Inj/D5W) 54 ml @ 108 mls/hr Q6H PRN IV NAUSEA AND/OR VOMITING; Start 10/26/16 at 14:00 Diphenhydramine HCl (Benadryl) 25 mg Q6H PRN IV ALLERGIC REACTION; Start 10/26 at 14:00 Dexamethasone (Decadron) 8 mg ONCE PRN IV ALLERGIC REACTION; Start 10/26/16 at 15:00; Stop 01/24/17 at 14:59 Filgrastim (Neupogen) 300 mcg DAILY@17 SC Last administered on 11/06/16 17:21 ; Admin Dose 300 MCG; Start 11/01/16 at 17:00 Trimethoprim/ Sulfamethoxazole (Bactrim (Ds)) 1 tab TuThSa@09 PO Last administered on 11/05/16 09:44; Admin Dose 1 TAB; Start 10/31/16 at 09:00 Magnesium Hydroxide (Milk Of Mag) 30 ml BID PRN PO CONSTIPATION Last administered on 11/06/16 21:49; Admin Dose 30 ML; Start 10/31/16 at 19:00 Polyethylene Glycol (Miralax) 17 gm BID PO Last administered on 11/06/16 20:51 ; Admin Dose 17 GM; Start 11/05/16 at 13:00 Bisacodyl (Dulcolax) 10 mg DAILY PRN PO CONSTIPATION Last administered on 21:49; Admin Dose 10 MG; Start 11/05/16 at 12:00 JEAN AUGUSTINE NP Nov 07, 2016 08:58
[2016-11-07] MEDS: POLYETHYLENE GLYCOL 17 GM PACKET PO SCH ×2 (09:10→21:16)
[2016-11-07] MEDS: TRIMETHOPRIM/SULFAMETHOX (DS) TAB PO SCH (09:10)
[2016-11-07] MEDS: ALLOPURINOL 300 MG TAB PO SCH (09:10)
[2016-11-07] MEDS: DOCUSATE SODIUM 100 MG CAP PO SCH ×2 (09:10→21:16)
[2016-11-07] MEDS ORDERED: NA PHOSPHATE/BIPHOS 133 ML ENEMA PR PRN (09:30)
--- NOTE | 2016-11-07 10:02 | CONS ---
Date/Time of Note Date/Time of Note DATE: 11/07/16 TIME: 10:02 Assessment/Plan Assessment/Plan Chief Complaint/Hosp Course The patient is a 61 year old male with recent diagnosis of gastric lymphoma in [place], with nausea and vomiting due to gastric outlet obstruction. 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 THe lymphoma has a Ki 67 high at 95%. BCL2 and BCL6 positive, FISH pending for BCL2, BCL6 and Myc. Given double expression of BCL2 and BCL6, pt has been started on R-EPOCH chemotherapy until FISH results return. Problems: Additional Assessment/Plan -s/p chemotherapy which he tolerated very well Rituximab 375 mg IV D1 Etoposide 50 mg/m2 IV over 24 hours D1-4 Doxorubicin 10 mg/m2 IV over 24 hours D1-4 Vincristine 0.4 mg/m2 IV over 24 hours D1-4 Cyclophosphamide 750 mg/m2 IV over 15 minutes D5 Prednisone 60 mg/m2 PO D1-5 - Patient needs neupogen 300 mcg x 10 days or neulasta 6 mg subcutaneous x 1 starting D6. Pt has received 6 doses. Last counts showed WBC declining, if ANC nadirs and starts recovering then can consider discharging prior to 10 days of neupogen administration. - Check LDH, uric acid daily to monitor for tumor lysis, will continue allopurinol with chemotherapy as tumor lysis prophylaxis, on bactrim 3x/week prophylaxis - TTE shows normal EF. HIV, hepatitis panel negative - bone marrow bx performed 10/30/16, shows no evidence of involvement of malignant lymphoma in the bone marrow - FISH for BCL6 positive, but negative for BCL2 and MYC, thus not double or triple hit. Patient can received R-CHOP chemotherapy for the next cycle when seen as an outpatient. Order already submitted. -continue, bactrim ppx, allopurinol, colace and zofran prn - Patient receiving zofran prn, reglan atc - will place case management order for patient to follow up with Dr. Stephanie Leblanc upon discharge and outpatient PET/CT - ok to discharge from my perspective once neulasta or neupogen approved. RN to provide injection teaching. Problems: Consultation Date/Type/Reason Admit Date/Time Oct 22, 2016 at 19:46 Initial Consult Date 10/24/16 Type of Consultation: Hematology/Oncology Referring Provider: POOJA VILLA 24 HR Interval Summary Free Text/Dictation Patient doing well, no complaints, ambulating in the [place] with a walker. Exam/Review of Systems Vital Signs Vitals Vital Signs Date Time Temp Pulse Resp B/P Pulse Ox O2 Delivery O2 Flow Rate FiO2 11/07/16 07:43 98.2 74 18 98/55 96 11/04/16 08:00 Nasal Cannula 3 Intake and Output 11/06/16 11/06/16 11/07/16 15:00 23:00 07:00 Intake Total 1640 ml 2010 ml Output Total 800 ml Balance 1640 ml 1210 ml Exam Constitutional: alert, oriented Psych: no complaints Head: atraumatic, normocephalic Eyes: nl conjunctiva ENMT: nl external ears & nose Neck: non-tender, supple Respiratory: clear to auscultation Cardiovascular: nl pulses, regular rate and rhythm Gastrointestinal: soft Musculoskeletal: nl extremities to inspection, nl gait and stance Results Result Diagram: 11/05/16 0430 11/07/16 0435 Results 24 hrs Laboratory Tests Test 11/06/16 12:23 11/06/16 17:09 11/06/16 20:03 11/07/16 04:35 Bedside Glucose 246 H 123 159 Alanine Aminotransferase (ALT/SGPT) 24 Albumin 2.7 L Albumin/Globulin Ratio 1.03 Alkaline Phosphatase 92 Anion Gap 12 Aspartate Amino Transf (AST/SGOT) 11 L Blood Urea Nitrogen 5 L Calcium Level 8.2 L Carbon Dioxide Level 29 Chloride Level 99 Creatinine 0.40 L Direct Bilirubin 0.00 Globulin 2.60 Glucose Level 90 Indirect Bilirubin 0.6 Lactate Dehydrogenase 436 Potassium Level 3.9 Sodium Level 136 Total Bilirubin 0.6 Total Protein 5.3 L Uric Acid 1.3 L Test 11/07/16 08:08 Bedside Glucose 98 Medications Medications Current Medications Zolpidem Tartrate (Ambien) 5 mg HS PRN PO INSOMNIA Last administered on 22:29; Admin Dose 5 MG; Start 10/22/16 at 22:30 Docusate Sodium (Colace) 100 mg BID PO Last administered on 11/07/16 09:10; Admin Dose 100 MG; Start 10/22/16 at 23:30 Ondansetron HCl (Zofran Inj) 4 mg Q6H PRN IV NAUSEA AND/OR VOMITING Last administered on 11/02/16 10:43; Admin Dose 4 MG; Start 10/22/16 at 23:30 Acetaminophen (Tylenol Tab) 650 mg Q6H PRN PO PAIN AND OR ELEVATED TEMP; Start 10/22/16 at 23:30 Pantoprazole (Protonix Iv) 40 mg DAILY@06 IV Last administered on 11/07/16 05: 40; Admin Dose 40 MG; Start 10/23/16 at 06:00 Diagnostic Test (Pha) 1 ea 1 ea 02 XX Last administered on 11/05/16 02:18; Admin Dose 1 EA; Start 10/23/16 at 02:00 Sodium Chloride (NS) 1,000 ml @ 80 mls/hr [id number] IV Last administered on 11/06 04:49; Admin Dose 80 MLS/HR; Start 10/22/16 at 23:30 Miscellaneous Information 1 ea NOTE XX ; Start 10/22/16 at 23:30 Glucose (Glutose) 15 gm Q15M PRN PO DECREASED GLUCOSE; Start 10/22/16 at 23:30 Glucose (Glutose) 22.5 gm Q15M PRN PO DECREASED GLUCOSE; Start 10/22/16 at 23: 30 Dextrose (D50w Syringe) 25 ml Q15M PRN IV DECREASED GLUCOSE; Start 10/22/16 at 23:30 Dextrose (D50w Syringe) 50 ml Q15M PRN IV DECREASED GLUCOSE; Start 10/22/16 at 23:30 Glucagon (Glucagen) 1 mg Q15M PRN IM DECREASED GLUCOSE; Start 10/22/16 at 23: 30 Glucose (Glutose) 15 gm Q15M PRN BUCCAL DECREASED GLUCOSE; Start 10/22/16 at 23:30 Metoclopramide HCl (Reglan) 10 mg Q6 IV Last administered on 11/07/16 05:41; Admin Dose 10 MG; Start 10/23/16 at 14:30 Allopurinol 300 mg 300 mg DAILY PO Last administered on 11/07/16 09:10; Admin Dose 300 MG; Start 10/26/16 at 09:00 Ondansetron HCl/ Dextrose (Zofran Inj/D5W) 54 ml @ 108 mls/hr Q6H PRN IV NAUSEA AND/OR VOMITING; Start 10/26/16 at 14:00 Diphenhydramine HCl (Benadryl) 25 mg Q6H PRN IV ALLERGIC REACTION; Start 10/26 at 14:00 Dexamethasone (Decadron) 8 mg ONCE PRN IV ALLERGIC REACTION; Start 10/26/16 at 15:00; Stop 01/24/17 at 14:59 Filgrastim (Neupogen) 300 mcg DAILY@17 SC Last administered on 11/06/16 17:21 ; Admin Dose 300 MCG; Start 11/01/16 at 17:00 Trimethoprim/ Sulfamethoxazole (Bactrim (Ds)) 1 tab TuThSa@09 PO Last administered on 11/07/16 09:10; Admin Dose 1 TAB; Start 10/31/16 at 09:00 Magnesium Hydroxide (Milk Of Mag) 30 ml BID PRN PO CONSTIPATION Last administered on 11/06/16 21:49; Admin Dose 30 ML; Start 10/31/16 at 19:00 Polyethylene Glycol (Miralax) 17 gm BID PO Last administered on 11/07/16 09:10 ; Admin Dose 17 GM; Start 11/05/16 at 13:00 Bisacodyl (Dulcolax) 10 mg DAILY PRN PO CONSTIPATION Last administered on 21:49; Admin Dose 10 MG; Start 11/05/16 at 12:00 Sodium Biphosphate/ Sodium Phosphate (Fleet Enema) 133 ml DAILY PRN MT CONSTIPATION; Start 11/07/16 at 09:30 Magnesium Citrate (Citroma) 300 ml NOW ONCE PO ; Start 11/07/16 at 10:30; Stop 11/07/16 at 10:31 NEY SORTO MD Nov 07, 2016 10:02
[2016-11-07] MEDS ORDERED: MAGNESIUM CITRATE 300 ML BTL PO ONE (10:30)
[2016-11-07] MEDS: ACETAMINOPHEN 325 MG TAB PO PRN (15:44)
[2016-11-07] MEDS: FILGRASTIM 300 MCG INJ SC SCH (17:37)
[2016-11-07 20:39] VITALS: BP 94/55; RESP 20
[2016-11-08] MEDS: ACCUCHECK XX SCH (00:01)
[2016-11-08] MEDS: PANTOPRAZOLE 40 MG INJ IV SCH (05:20)
[2016-11-08] MEDS: METOCLOPRAMIDE 10 MG INJ IV SCH ×4 (05:20→23:39)
[2016-11-08 06:08] LABS: HEMATOCRIT 27.8 % (42.0-52.0); HEMOGLOBIN 9.8 g/dl (14.0-18.0); MEAN CORPUSCULAR HGB CONC 35.1 g/dl (32.0-37.0); MEAN CORPUSCULAR VOLUME 85.5 fl (82.0-101.0); MEAN PLATELET VOLUME 6.7 fl (7.4-10.4); PLATELET COUNT 160 10^3/UL (140-440); RED BLOOD COUNT 3.25 10^6/ul (4.70-6.10); RED CELL DISTRIBUTION WIDTH 13.4 % (11.5-14.5); UNCORRECTED WBC 3.2 10^3/ul (4.8-10.8); WHITE BLOOD COUNT 3.2 10^3/ul (4.8-10.8)
[2016-11-08 06:25] LABS: URIC ACID 1.5 mg/dl (3.1-7.9)
[2016-11-08 06:38] LABS: ALBUMIN 2.6 g/dl (3.3-4.9)
[2016-11-08 06:39] LABS: POTASSIUM 3.9 mmol/L (3.5-5.1)
[2016-11-08 06:40] LABS: CONDITION 1; LH ANALYZER COMMENTS 1; SUSPECT 1
[2016-11-08 06:41] LABS: BILIRUBIN,INDIRECT 0.5 mg/dl (0-1.1); BILIRUBIN,TOTAL 0.5 mg/dl (0.2-1.3); CREATININE 0.48 mg/dl (0.61-1.24); TOTAL PROTEIN 5.2 g/dl (6.1-8.1)
[2016-11-08 06:42] LABS: CALCIUM 8.4 mg/dl (8.4-10.2)
[2016-11-08 07:43] LABS: BASOPHIL # 0.1 10^3/ul (0.0-0.1); EOSINOPHILS # 0.2 10^3/ul (0.0-0.5); MONOCYTE # 0.1 10^3/ul (0.3-0.9); TOXIC GRANULATION 1+
[2016-11-08] MEDS: INSULIN ASPART [NOVOLOG] 3 ML PEN SC SCH ×4 (07:50→21:00)
[2016-11-08 07:51] VITALS: BP 106/56; RESP 16
--- NOTE | 2016-11-08 08:30 | PN ---
Date/Time of Note Date/Time of Note DATE: 11/08/16 TIME: 08:28 Assessment/Plan VTE Prophylaxis VTE Prophylaxis Intervention: ambulation, SCD's Lines/Catheters IV [facility]from [facility] SHABANA-CATH Urinary Cath still in place: No Assessment/Plan Chief Complaint/Hosp Course 1. Diffuse large B-cell lymphoma (DLBCL). The patient was initiated on chemotherapy. Will continue to monitor the patient for any tumor lysis syndrome. 2. Large partially obstructing gastric antral mass with extensive ulceration. Status post esophagogastroduodenoscopy. Stenting felt unnecessary as the patient has patent gastrojejunostomy. 3. Intractable nausea and vomiting secondary to #1 and #2. Largely resolved. Continue antiemetics and prokinetics. 4. Type 2 diabetes mellitus. Hemoglobin A1c 6.8. Diet controlled. Will avoid giving any new medications at this time since the patient has been initiated on chemotherapy. Nevertheless, the patient's random blood glucose is within normal limits. 5. Constipation. Continue routine stool softeners and PRN laxatives. 6. Fluid, electrolytes and nutrition. Continue carbohydrate controlled diet. 7. Deep venous thrombosis prophylaxis. Bilateral sequential compression devices. 8. Gastrointestinal prophylaxis. Proton pump inhibitors. 9. Continue chemotherapy as per oncology. Pending discharge. Await approval of home medications by insurance before discharge. The patient is clinically stable to be discharged. Case discussed with Dr. Ferris. Problems: Subjective 24 Hr Interval Summary Free Text/Dictation The patient had a small BM early this morning. Exam/Review of Systems Vital Signs Vitals Vital Signs Date Time Temp Pulse Resp B/P Pulse Ox O2 Delivery O2 Flow Rate FiO2 11/08/16 07:51 97.9 71 16 106/56 96 11/04/16 08:00 Nasal Cannula 3 Intake and Output 11/07/16 11/07/16 11/08/16 15:00 23:00 07:00 Intake Total 1890 ml 1610 ml Output Total 4 ml 1050 ml Balance 1886 ml 560 ml Exam GENERAL: This is a well-built, well-nourished male sitting in the bed in no apparent distress. HEENT: Head normocephalic and atraumatic. Eyes: Anicteric sclerae. Conjunctivae clear. ENT: Nasal septum is midline. Oral mucosa is moist. NECK: Supple. No JVD noticed. RESPIRATORY: Bilaterally clear to auscultation. No adventitious breath sounds heard. No use of accessory muscles of respiration. CARDIAC: Regular rate and rhythm. No murmurs heard. ABDOMEN: Soft, nontender and nondistended. Bowel sounds positive in all 4 quadrants. GENITOURINARY: Deferred. EXTREMITIES: No cyanosis, no clubbing, no edema. Peripheral pulses are palpable. NEUROLOGIC: Cranial nerves II through XII grossly intact. No focal deficits. PSYCHIATRIC: Normal mood and affect. SKIN: Clean, dry and intact. Results Result Diagram: 11/08/16 0453 11/08/16 0434 Results 24 hrs Laboratory Tests Test 11/07/16 11:37 11/07/16 17:28 11/07/16 20:14 11/08/16 04:34 Bedside Glucose 203 128 172 Alanine Aminotransferase (ALT/SGPT) 27 Albumin 2.6 L Albumin/Globulin Ratio 1.00 Alkaline Phosphatase 96 Anion Gap 12 Aspartate Amino Transf (AST/SGOT) 14 L Blood Urea Nitrogen 7 Calcium Level 8.4 Carbon Dioxide Level 27 Chloride Level 99 Creatinine 0.48 L Direct Bilirubin 0.00 Globulin 2.60 Glucose Level 76 Indirect Bilirubin 0.5 Lactate Dehydrogenase 463 Potassium Level 3.9 Sodium Level 134 L Total Bilirubin 0.5 Total Protein 5.2 L Uric Acid 1.5 L Test 11/08/16 04:53 11/08/16 07:50 Band Neutrophils % 17.0 H Basophils # 0.1 Basophils % 4.0 H Blast Cells % 7.0 H Blastocytes # 0.2 Blood Morphology Comment Eosinophils # 0.2 Eosinophils % 5.0 Hematocrit 27.8 L Hemoglobin 9.8 L Lymphocytes # 1.0 Lymphocytes % 32.0 Mean Corpuscular Hemoglobin 30.0 Mean Corpuscular Hemoglobin Concent 35.1 Mean Corpuscular Volume 85.5 Mean Platelet Volume 6.7 L Monocytes # 0.1 L Monocytes % 4.0 Neutrophils # 1.0 L Neutrophils % 31.0 L Nucleated Red Blood Cells # Nucleated Red Blood Cells % Platelet Count 160 Red Blood Count 3.25 L Red Cell Distribution Width 13.4 Toxic Granulation 1+ White Blood Count 3.2 #L Bedside Glucose 89 Medications Medications Current Medications Zolpidem Tartrate (Ambien) 5 mg HS PRN PO INSOMNIA Last administered on t 22:29; Admin Dose 5 MG; Start 10/22/16 at 22:30 Docusate Sodium (Colace) 100 mg BID PO Last administered on 11/07/16 21:16; Admin Dose 100 MG; Start 10/22/16 at 23:30 Ondansetron HCl (Zofran Inj) 4 mg Q6H PRN IV NAUSEA AND/OR VOMITING Last administered on 11/02/16 10:43; Admin Dose 4 MG; Start 10/22/16 at 23:30 Acetaminophen (Tylenol Tab) 650 mg Q6H PRN PO PAIN AND OR ELEVATED TEMP Last administered on 11/07/16 15:44; Admin Dose 650 MG; Start 10/22/16 at 23:30 Pantoprazole (Protonix Iv) 40 mg DAILY@06 IV Last administered on 11/08/16 05: 20; Admin Dose 40 MG; Start 10/23/16 at 06:00 Diagnostic Test (Pha) 1 ea 1 ea 02 XX Last administered on 11/05/16 02:18; Admin Dose 1 EA; Start 10/23/16 at 02:00 Sodium Chloride (NS) 1,000 ml @ 80 mls/hr [id number] IV Last administered on 11/07 23:51; Admin Dose 80 MLS/HR; Start 10/22/16 at 23:30 Miscellaneous Information 1 ea NOTE XX ; Start 10/22/16 at 23:30 Glucose (Glutose) 15 gm Q15M PRN PO DECREASED GLUCOSE; Start 10/22/16 at 23:30 Glucose (Glutose) 22.5 gm Q15M PRN PO DECREASED GLUCOSE; Start 10/22/16 at 23: 30 Dextrose (D50w Syringe) 25 ml Q15M PRN IV DECREASED GLUCOSE; Start 10/22/16 at 23:30 Dextrose (D50w Syringe) 50 ml Q15M PRN IV DECREASED GLUCOSE; Start 10/22/16 at 23:30 Glucagon (Glucagen) 1 mg Q15M PRN IM DECREASED GLUCOSE; Start 10/22/16 at 23: 30 Glucose (Glutose) 15 gm Q15M PRN BUCCAL DECREASED GLUCOSE; Start 10/22/16 at 23:30 Metoclopramide HCl (Reglan) 10 mg Q6 IV Last administered on 11/08/16 05:20; Admin Dose 10 MG; Start 10/23/16 at 14:30 Allopurinol 300 mg 300 mg DAILY PO Last administered on 11/07/16 09:10; Admin Dose 300 MG; Start 10/26/16 at 09:00 Ondansetron HCl/ Dextrose (Zofran Inj/D5W) 54 ml @ 108 mls/hr Q6H PRN IV NAUSEA AND/OR VOMITING; Start 10/26/16 at 14:00 Diphenhydramine HCl (Benadryl) 25 mg Q6H PRN IV ALLERGIC REACTION; Start 10/26 at 14:00 Dexamethasone (Decadron) 8 mg ONCE PRN IV ALLERGIC REACTION; Start 10/26/16 at 15:00; Stop 01/24/17 at 14:59 Filgrastim (Neupogen) 300 mcg DAILY@17 SC Last administered on 11/07/16 17:37 ; Admin Dose 300 MCG; Start 11/01/16 at 17:00 Trimethoprim/ Sulfamethoxazole (Bactrim (Ds)) 1 tab TuThSa@09 PO Last administered on 11/07/16 09:10; Admin Dose 1 TAB; Start 10/31/16 at 09:00 Magnesium Hydroxide (Milk Of Mag) 30 ml BID PRN PO CONSTIPATION Last administered on 11/06/16 21:49; Admin Dose 30 ML; Start 10/31/16 at 19:00 Polyethylene Glycol (Miralax) 17 gm BID PO Last administered on 11/07/16 21:16 ; Admin Dose 17 GM; Start 11/05/16 at 13:00 Bisacodyl (Dulcolax) 10 mg DAILY PRN PO CONSTIPATION Last administered on 21:49; Admin Dose 10 MG; Start 11/05/16 at 12:00 Sodium Biphosphate/ Sodium Phosphate (Fleet Enema) 133 ml DAILY PRN [place] CONSTIPATION Last administered on 11/07/16 15:44; Admin Dose 133 ML; Start 10/12 at 09:30 JEAN AUGUSTINE NP Nov 08, 2016 08:29
[2016-11-08] MEDS: ALLOPURINOL 300 MG TAB PO SCH (09:11)
[2016-11-08] MEDS: POLYETHYLENE GLYCOL 17 GM PACKET PO SCH ×2 (09:11→22:31)
[2016-11-08] MEDS: DOCUSATE SODIUM 100 MG CAP PO SCH ×2 (09:11→22:31)
--- NOTE | 2016-11-08 12:21 | CONS ---
Date/Time of Note Date/Time of Note DATE: 11/08/16 TIME: 12:20 Assessment/Plan Assessment/Plan Chief Complaint/Hosp Course The patient is a 61 year old male with recent diagnosis of gastric lymphoma in [place], with nausea and vomiting due to gastric outlet obstruction. 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 THe lymphoma has a Ki 67 high at 95%. BCL2 and BCL6 positive, FISH pending for BCL2, BCL6 and Myc. Given double expression of BCL2 and BCL6, pt has been started on R-EPOCH chemotherapy until FISH results return. Problems: Additional Assessment/Plan -s/p chemotherapy which he tolerated very well Rituximab 375 mg IV D1 Etoposide 50 mg/m2 IV over 24 hours D1-4 Doxorubicin 10 mg/m2 IV over 24 hours D1-4 Vincristine 0.4 mg/m2 IV over 24 hours D1-4 Cyclophosphamide 750 mg/m2 IV over 15 minutes D5 Prednisone 60 mg/m2 PO D1-5 - Patient needs neupogen 300 mcg x 10 days or neulasta 6 mg subcutaneous x 1 starting D6. Pt has received 6 doses. Last counts showed WBC declining, if ANC nadirs and starts recovering then can consider discharging prior to 10 days of neupogen administration. - Check LDH, uric acid daily to monitor for tumor lysis, will continue allopurinol with chemotherapy as tumor lysis prophylaxis, on bactrim 3x/week prophylaxis - TTE shows normal EF. HIV, hepatitis panel negative - bone marrow bx performed 10/30/16, shows no evidence of involvement of malignant lymphoma in the bone marrow - FISH for BCL6 positive, but negative for BCL2 and MYC, thus not double or triple hit. Patient can received R-CHOP chemotherapy for the next cycle when seen as an outpatient. Order already submitted. -continue, bactrim ppx, allopurinol, colace and zofran prn - Patient receiving zofran prn, reglan atc - will place case management order for patient to follow up with Dr. Stephanie Leblanc upon discharge and outpatient PET/CT - ok to discharge from my perspective once neupogen approved. RN to provide injection teaching. Problems: Consultation Date/Type/Reason Admit Date/Time Oct 22, 2016 at 19:46 Initial Consult Date 10/24/16 Type of Consultation: Hematology/Oncology Referring Provider: POOJA VILLA 24 HR Interval Summary Free Text/Dictation Patient doing well, no complaints. Exam/Review of Systems Vital Signs Vitals Vital Signs Date Time Temp Pulse Resp B/P Pulse Ox O2 Delivery O2 Flow Rate FiO2 11/08/16 07:51 97.9 71 16 106/56 96 11/04/16 08:00 Nasal Cannula 3 Intake and Output 11/07/16 11/07/16 11/08/16 15:00 23:00 07:00 Intake Total 1890 ml 1610 ml Output Total 4 ml 1050 ml Balance 1886 ml 560 ml Exam Constitutional: alert, oriented Psych: no complaints Head: atraumatic, normocephalic Eyes: nl conjunctiva ENMT: nl external ears & nose Neck: non-tender, supple Respiratory: clear to auscultation Cardiovascular: nl pulses, regular rate and rhythm Gastrointestinal: soft Musculoskeletal: nl extremities to inspection, nl gait and stance Results Result Diagram: 11/08/16 0453 11/08/16 0434 Results 24 hrs Laboratory Tests Test 11/07/16 17:28 11/07/16 20:14 11/08/16 04:34 11/08/16 04:53 Bedside Glucose 128 172 Alanine Aminotransferase (ALT/SGPT) 27 Albumin 2.6 L Albumin/Globulin Ratio 1.00 Alkaline Phosphatase 96 Anion Gap 12 Aspartate Amino Transf (AST/SGOT) 14 L Blood Urea Nitrogen 7 Calcium Level 8.4 Carbon Dioxide Level 27 Chloride Level 99 Creatinine 0.48 L Direct Bilirubin 0.00 Globulin 2.60 Glucose Level 76 Indirect Bilirubin 0.5 Lactate Dehydrogenase 463 Potassium Level 3.9 Sodium Level 134 L Total Bilirubin 0.5 Total Protein 5.2 L Uric Acid 1.5 L Band Neutrophils % 17.0 H Basophils # 0.1 Basophils % 4.0 H Blast Cells % 7.0 H Blastocytes # 0.2 Blood Morphology Comment Eosinophils # 0.2 Eosinophils % 5.0 Hematocrit 27.8 L Hemoglobin 9.8 L Lymphocytes # 1.0 Lymphocytes % 32.0 Mean Corpuscular Hemoglobin 30.0 Mean Corpuscular Hemoglobin Concent 35.1 Mean Corpuscular Volume 85.5 Mean Platelet Volume 6.7 L Monocytes # 0.1 L Monocytes % 4.0 Neutrophils # 1.0 L Neutrophils % 31.0 L Nucleated Red Blood Cells # Nucleated Red Blood Cells % Platelet Count 160 Red Blood Count 3.25 L Red Cell Distribution Width 13.4 Toxic Granulation 1+ White Blood Count 3.2 #L Test 11/08/16 07:50 11/08/16 11:34 Bedside Glucose 89 184 Medications Medications Current Medications Zolpidem Tartrate (Ambien) 5 mg HS PRN PO INSOMNIA Last administered on 22:29; Admin Dose 5 MG; Start 10/22/16 at 22:30 Docusate Sodium (Colace) 100 mg BID PO Last administered on 11/08/16 09:11; Admin Dose 100 MG; Start 10/22/16 at 23:30 Ondansetron HCl (Zofran Inj) 4 mg Q6H PRN IV NAUSEA AND/OR VOMITING Last administered on 11/02/16 10:43; Admin Dose 4 MG; Start 10/22/16 at 23:30 Acetaminophen (Tylenol Tab) 650 mg Q6H PRN PO PAIN AND OR ELEVATED TEMP Last administered on 11/07/16 15:44; Admin Dose 650 MG; Start 10/22/16 at 23:30 Pantoprazole (Protonix Iv) 40 mg DAILY@06 IV Last administered on 11/08/16 05: 20; Admin Dose 40 MG; Start 10/23/16 at 06:00 Diagnostic Test (Pha) 1 ea 1 ea 02 XX Last administered on 11/05/16 02:18; Admin Dose 1 EA; Start 10/23/16 at 02:00 Sodium Chloride (NS) 1,000 ml @ 80 mls/hr [id number] IV Last administered on 11/07 23:51; Admin Dose 80 MLS/HR; Start 10/22/16 at 23:30 Miscellaneous Information 1 ea NOTE XX ; Start 10/22/16 at 23:30 Glucose (Glutose) 15 gm Q15M PRN PO DECREASED GLUCOSE; Start 10/22/16 at 23:30 Glucose (Glutose) 22.5 gm Q15M PRN PO DECREASED GLUCOSE; Start 10/22/16 at 23: 30 Dextrose (D50w Syringe) 25 ml Q15M PRN IV DECREASED GLUCOSE; Start 10/22/16 at 23:30 Dextrose (D50w Syringe) 50 ml Q15M PRN IV DECREASED GLUCOSE; Start 10/22/16 at 23:30 Glucagon (Glucagen) 1 mg Q15M PRN IM DECREASED GLUCOSE; Start 10/22/16 at 23: 30 Glucose (Glutose) 15 gm Q15M PRN BUCCAL DECREASED GLUCOSE; Start 10/22/16 at 23:30 Metoclopramide HCl (Reglan) 10 mg Q6 IV Last administered on 11/08/16 05:20; Admin Dose 10 MG; Start 10/23/16 at 14:30 Allopurinol 300 mg 300 mg DAILY PO Last administered on 11/08/16 09:11; Admin Dose 300 MG; Start 10/26/16 at 09:00 Ondansetron HCl/ Dextrose (Zofran Inj/D5W) 54 ml @ 108 mls/hr Q6H PRN IV NAUSEA AND/OR VOMITING; Start 10/26/16 at 14:00 Diphenhydramine HCl (Benadryl) 25 mg Q6H PRN IV ALLERGIC REACTION; Start 10/26 at 14:00 Dexamethasone (Decadron) 8 mg ONCE PRN IV ALLERGIC REACTION; Start 10/26/16 at 15:00; Stop 01/24/17 at 14:59 Filgrastim (Neupogen) 300 mcg DAILY@17 SC Last administered on 11/07/16 17:37 ; Admin Dose 300 MCG; Start 11/01/16 at 17:00 Trimethoprim/ Sulfamethoxazole (Bactrim (Ds)) 1 tab TuThSa@09 PO Last administered on 11/07/16 09:10; Admin Dose 1 TAB; Start 10/31/16 at 09:00 Magnesium Hydroxide (Milk Of Mag) 30 ml BID PRN PO CONSTIPATION Last administered on 11/06/16 21:49; Admin Dose 30 ML; Start 10/31/16 at 19:00 Polyethylene Glycol (Miralax) 17 gm BID PO Last administered on 11/08/16 09:11 ; Admin Dose 17 GM; Start 11/05/16 at 13:00 Bisacodyl (Dulcolax) 10 mg DAILY PRN PO CONSTIPATION Last administered on 21:49; Admin Dose 10 MG; Start 11/05/16 at 12:00 Sodium Biphosphate/ Sodium Phosphate (Fleet Enema) 133 ml DAILY PRN [place] CONSTIPATION Last administered on 11/07/16 15:44; Admin Dose 133 ML; Start 10/12 at 09:30 TO,NEY Granado MD Nov 08, 2016 12:21
--- NOTE | 2016-11-08 12:48 | RADRPT ---
PROCEDURE: XR Abdomen. CLINICAL INDICATION: Abdomen pain. Gastric outlet obstruction. TECHNIQUE: AP supine abdomen x-ray. COMPARISON: None. FINDINGS: The bowel gas pattern is normal. There is no evidence of obstruction. There are no abnormal calcifications overlying the urinary tracts. There are mild degenerative changes of the spine. IMPRESSION: 1. Mild degenerative changes of the spine. 2. Otherwise unremarkable study. RPTAT: QQ .Nicolas Erwin MD, MD Date Time Electronically viewed and signed by .Nicolas Erwin MD, MD on 11/08/2016 12:48 .R/
[2016-11-08] MEDS: SOD CHLORIDE 0.9% 1,000 ML IV SCH (12:58)
[2016-11-08] MEDS: FILGRASTIM 300 MCG INJ SC SCH (17:11)
[2016-11-08 22:07] VITALS: BP 97/54; RESP 20
[2016-11-09] MEDS: ACCUCHECK XX SCH ×2 (02:00→21:33)
[2016-11-09] MEDS: SOD CHLORIDE 0.9% 1,000 ML IV SCH ×3 (04:00→17:04)
[2016-11-09] MEDS: ACETAMINOPHEN 325 MG TAB PO PRN (04:28)
[2016-11-09 05:24] LABS: ALBUMIN 2.8 g/dl (3.3-4.9); POTASSIUM 3.8 mmol/L (3.5-5.1)
[2016-11-09 05:25] LABS: HEMATOCRIT 30.2 % (42.0-52.0); HEMOGLOBIN 10.6 g/dl (14.0-18.0); MEAN CORPUSCULAR HEMOGLOBIN 29.9 pg (29.0-33.0); MEAN CORPUSCULAR VOLUME 85.4 fl (82.0-101.0); MEAN PLATELET VOLUME 6.6 fl (7.4-10.4); PLATELET COUNT 173 10^3/UL (140-440); RED BLOOD COUNT 3.54 10^6/ul (4.70-6.10); RED CELL DISTRIBUTION WIDTH 13.4 % (11.5-14.5); UNCORRECTED WBC 7.7 10^3/ul (4.8-10.8); WHITE BLOOD COUNT 7.7 10^3/ul (4.8-10.8)
[2016-11-09 05:26] LABS: CREATININE 0.46 mg/dl (0.61-1.24); URIC ACID 2.1 mg/dl (3.1-7.9)
[2016-11-09 05:27] LABS: ALBUMIN/GLOBULIN RATIO 1.03; BILIRUBIN,INDIRECT 0.4 mg/dl (0-1.1); BILIRUBIN,TOTAL 0.4 mg/dl (0.2-1.3); CALCIUM 8.5 mg/dl (8.4-10.2); TOTAL PROTEIN 5.5 g/dl (6.1-8.1)
[2016-11-09] MEDS: METOCLOPRAMIDE 10 MG INJ IV SCH ×3 (05:49→18:25)
[2016-11-09] MEDS: PANTOPRAZOLE 40 MG INJ IV SCH (05:49)
[2016-11-09 06:25] LABS: CONDITION 1; LH ANALYZER COMMENTS 1; SUSPECT 1
[2016-11-09 07:00] VITALS: BP 111/57; RESP 20
[2016-11-09] MEDS: INSULIN ASPART [NOVOLOG] 3 ML PEN SC SCH ×4 (07:34→21:00)
--- NOTE | 2016-11-09 09:11 | PN ---
Date/Time of Note Date/Time of Note DATE: 11/09/16 TIME: 09:09 Assessment/Plan VTE Prophylaxis VTE Prophylaxis Intervention: ambulation, SCD's Lines/Catheters IV C[facility] Type [facility]from [facility] [place] PORT-A-CATH Urinary Cath still in place: No Assessment/Plan Chief Complaint/Hosp Course 1. Diffuse large B-cell lymphoma (DLBCL). The patient was initiated on chemotherapy. Will continue to monitor the patient for any tumor lysis syndrome. 2. Large partially obstructing gastric antral mass with extensive ulceration. Status post esophagogastroduodenoscopy. Stenting felt unnecessary as the patient has patent gastrojejunostomy. 3. Intractable nausea and vomiting secondary to #1 and #2. Largely resolved. Continue antiemetics and prokinetics. 4. Type 2 diabetes mellitus. Hemoglobin A1c 6.8. Diet controlled. Will avoid giving any new medications at this time since the patient has been initiated on chemotherapy. Nevertheless, the patient's random blood glucose is within normal limits. 5. Constipation. Continue routine stool softeners and PRN laxatives. 6. Fluid, electrolytes and nutrition. Continue carbohydrate controlled diet. 7. Deep venous thrombosis prophylaxis. Bilateral sequential compression devices. 8. Gastrointestinal prophylaxis. Proton pump inhibitors. 9. Continue chemotherapy as per oncology. Pending discharge. Await approval of home medications by insurance before discharge. The patient is clinically stable to be discharged. Case discussed with Dr. Ferris. Problems: Subjective 24 Hr Interval Summary Free Text/Dictation Vital signs stable. The patient remains afebrile Exam/Review of Systems Vital Signs Vitals Vital Signs Date Time Temp Pulse Resp B/P Pulse Ox O2 Delivery O2 Flow Rate FiO2 11/09/16 07:00 97.9 68 20 111/57 97 Intake and Output 11/08/16 11/08/16 11/09/16 15:00 23:00 07:00 Intake Total 1500 ml 2060 ml Output Total 800 ml Balance 1500 ml 1260 ml Exam GENERAL: This is a well-built, well-nourished male sitting in the bed in no apparent distress. HEENT: Head normocephalic and atraumatic. Eyes: Anicteric sclerae. Conjunctivae clear. ENT: Nasal septum is midline. Oral mucosa is moist. NECK: Supple. No JVD noticed. RESPIRATORY: Bilaterally clear to auscultation. No adventitious breath sounds heard. No use of accessory muscles of respiration. CARDIAC: Regular rate and rhythm. No murmurs heard. ABDOMEN: Soft, nontender and nondistended. Bowel sounds positive in all 4 quadrants. GENITOURINARY: Deferred. EXTREMITIES: No cyanosis, no clubbing, no edema. Peripheral pulses are palpable. NEUROLOGIC: Cranial nerves II through XII grossly intact. No focal deficits. PSYCHIATRIC: Normal mood and affect. SKIN: Clean, dry and intact. Results Result Diagram: 11/09/16 04311/09/16 043 Results 24 hrs Laboratory Tests Test 11/08/16 11:34 11/08/16 17:08 11/08/16 20:10 11/09/16 04:30 Bedside Glucose 184 103 152 Alanine Aminotransferase (ALT/SGPT) 27 Albumin 2.8 L Albumin/Globulin Ratio 1.03 Alkaline Phosphatase 101 Anion Gap 12 Aspartate Amino Transf (AST/SGOT) 16 Basophils # Pending Basophils % Pending Blood Morphology Comment Blood Urea Nitrogen 6 L Calcium Level 8.5 Carbon Dioxide Level 26 Chloride Level 101 Creatinine 0.46 L Direct Bilirubin 0.00 Eosinophils # Pending Eosinophils % Pending Globulin 2.70 Glucose Level 72 Hematocrit 30.2 L Hemoglobin 10.6 L Indirect Bilirubin 0.4 Lactate Dehydrogenase 476 Lymphocytes # Pending Lymphocytes % Pending Mean Corpuscular Hemoglobin 29.9 Mean Corpuscular Hemoglobin Concent 35.0 Mean Corpuscular Volume 85.4 Mean Platelet Volume 6.6 L Monocytes # Pending Monocytes % Pending Neutrophils # Pending Neutrophils % Pending Nucleated Red Blood Cells # Pending Nucleated Red Blood Cells % Pending Platelet Count 173 Potassium Level 3.8 Red Blood Count 3.54 L Red Cell Distribution Width 13.4 Sodium Level 135 Total Bilirubin 0.4 Total Protein 5.5 L Uric Acid 2.1 L White Blood Count 7.7 # Test 11/09/16 07:23 Bedside Glucose 89 Medications Medications Current Medications Zolpidem Tartrate (Ambien) 5 mg HS PRN PO INSOMNIA Last administered on 22:29; Admin Dose 5 MG; Start 10/22/16 at 22:30 Docusate Sodium (Colace) 100 mg BID PO Last administered on 11/08/16 22:31; Admin Dose 100 MG; Start 10/22/16 at 23:30 Ondansetron HCl (Zofran Inj) 4 mg Q6H PRN IV NAUSEA AND/OR VOMITING Last administered on 11/02/16 10:43; Admin Dose 4 MG; Start 10/22/16 at 23:30 Acetaminophen (Tylenol Tab) 650 mg Q6H PRN PO PAIN AND OR ELEVATED TEMP Last administered on 11/09/16 04:28; Admin Dose 650 MG; Start 10/22/16 at 23:30 Pantoprazole (Protonix Iv) 40 mg DAILY@06 IV Last administered on 11/09/16 05: 49; Admin Dose 40 MG; Start 10/23/16 at 06:00 Diagnostic Test (Pha) 1 ea 1 ea 02 XX Last administered on 11/05/16 02:18; Admin Dose 1 EA; Start 10/23/16 at 02:00 Sodium Chloride (NS) 1,000 ml @ 80 mls/hr [id number] IV Last administered on 11/09 04:28; Admin Dose 80 MLS/HR; Start 10/22/16 at 23:30 Miscellaneous Information 1 ea NOTE XX ; Start 10/22/16 at 23:30 Glucose (Glutose) 15 gm Q15M PRN PO DECREASED GLUCOSE; Start 10/22/16 at 23:30 Glucose (Glutose) 22.5 gm Q15M PRN PO DECREASED GLUCOSE; Start 10/22/16 at 23: 30 Dextrose (D50w Syringe) 25 ml Q15M PRN IV DECREASED GLUCOSE; Start 10/22/16 at 23:30 Dextrose (D50w Syringe) 50 ml Q15M PRN IV DECREASED GLUCOSE; Start 10/22/16 at 23:30 Glucagon (Glucagen) 1 mg Q15M PRN IM DECREASED GLUCOSE; Start 10/22/16 at 23: 30 Glucose (Glutose) 15 gm Q15M PRN BUCCAL DECREASED GLUCOSE; Start 10/22/16 at 23:30 Metoclopramide HCl (Reglan) 10 mg Q6 IV Last administered on 11/09/16 05:49; Admin Dose 10 MG; Start 10/23/16 at 14:30 Allopurinol 300 mg 300 mg DAILY PO Last administered on 11/08/16 09:11; Admin Dose 300 MG; Start 10/26/16 at 09:00 Ondansetron HCl/ Dextrose (Zofran Inj/D5W) 54 ml @ 108 mls/hr Q6H PRN IV NAUSEA AND/OR VOMITING; Start 10/26/16 at 14:00 Diphenhydramine HCl (Benadryl) 25 mg Q6H PRN IV ALLERGIC REACTION; Start 10/26 at 14:00 Dexamethasone (Decadron) 8 mg ONCE PRN IV ALLERGIC REACTION; Start 10/26/16 at 15:00; Stop 01/24/17 at 14:59 Filgrastim (Neupogen) 300 mcg DAILY@17 SC Last administered on 11/08/16 17:11 ; Admin Dose 300 MCG; Start 11/01/16 at 17:00 Trimethoprim/ Sulfamethoxazole (Bactrim (Ds)) 1 tab TuThSa@09 PO Last administered on 11/07/16 09:10; Admin Dose 1 TAB; Start 10/31/16 at 09:00 Magnesium Hydroxide (Milk Of Mag) 30 ml BID PRN PO CONSTIPATION Last administered on 11/06/16 21:49; Admin Dose 30 ML; Start 10/31/16 at 19:00 Polyethylene Glycol (Miralax) 17 gm BID PO Last administered on 11/08/16 22:31 ; Admin Dose 17 GM; Start 11/05/16 at 13:00 Bisacodyl (Dulcolax) 10 mg DAILY PRN PO CONSTIPATION Last administered on 21:49; Admin Dose 10 MG; Start 11/05/16 at 12:00 Sodium Biphosphate/ Sodium Phosphate (Fleet Enema) 133 ml DAILY PRN [place] CONSTIPATION Last administered on 11/07/16 15:44; Admin Dose 133 ML; Start 10/12 at 09:30 JEAN AUGUSTINE NP Nov 09, 2016 09:11
[2016-11-09] MEDS: DOCUSATE SODIUM 100 MG CAP PO SCH ×2 (09:13→21:14)
[2016-11-09] MEDS: ALLOPURINOL 300 MG TAB PO SCH (09:13)
[2016-11-09] MEDS: POLYETHYLENE GLYCOL 17 GM PACKET PO SCH ×2 (09:13→21:14)
[2016-11-09] MEDS: TRIMETHOPRIM/SULFAMETHOX (DS) TAB PO SCH (09:15)
[2016-11-09 11:26] LABS: BASOPHIL # 0.1 10^3/ul (0.0-0.1); EOSINOPHILS # 0.1 10^3/ul (0.0-0.5); LYMPHOCYTES # 0.7 10^3/ul (0.8-2.9); MYELOCYTES # 0.2; NEUTROPHIL # 3.4 10^3/ul (1.6-7.5)
[2016-11-09 11:27] LABS: ANISOCYTOSIS 1+; POLYCHROMASIA 1+
[2016-11-09] MEDS: FILGRASTIM 300 MCG INJ SC SCH (17:01)
[2016-11-09 20:10] VITALS: BP 107/56; PULSE 78; RESP 17
[2016-11-10] MEDS: METOCLOPRAMIDE 10 MG INJ IV SCH ×4 (00:46→19:02)
[2016-11-10] MEDS: ACETAMINOPHEN 325 MG TAB PO PRN (00:46)
[2016-11-10 05:13] LABS: HEMATOCRIT 29.5 % (42.0-52.0); HEMOGLOBIN 10.2 g/dl (14.0-18.0); MEAN CORPUSCULAR HEMOGLOBIN 29.4 pg (29.0-33.0); MEAN CORPUSCULAR HGB CONC 34.5 g/dl (32.0-37.0); MEAN CORPUSCULAR VOLUME 85.4 fl (82.0-101.0); MEAN PLATELET VOLUME 6.4 fl (7.4-10.4); PLATELET COUNT 195 10^3/UL (140-440); RED BLOOD COUNT 3.46 10^6/ul (4.70-6.10); RED CELL DISTRIBUTION WIDTH 13.7 % (11.5-14.5); UNCORRECTED WBC 17.9 10^3/ul (4.8-10.8); WHITE BLOOD COUNT 17.9 10^3/ul (4.8-10.8)
[2016-11-10 05:24] LABS: CONDITION 1; LH ANALYZER COMMENTS 1; SUSPECT 1
[2016-11-10] MEDS: PANTOPRAZOLE 40 MG INJ IV SCH (05:44)
[2016-11-10] MEDS: SOD CHLORIDE 0.9% 1,000 ML IV SCH ×2 (05:45→19:02)
[2016-11-10 07:49] VITALS: BP 110/55; RESP 16
[2016-11-10] MEDS: INSULIN ASPART [NOVOLOG] 3 ML PEN SC SCH ×4 (07:50→21:00)
[2016-11-10] MEDS: ALLOPURINOL 300 MG TAB PO SCH (08:21)
[2016-11-10] MEDS: DOCUSATE SODIUM 100 MG CAP PO SCH ×2 (08:21→21:00)
[2016-11-10] MEDS: POLYETHYLENE GLYCOL 17 GM PACKET PO SCH ×2 (08:21→21:00)
--- NOTE | 2016-11-10 09:21 | PN ---
Date/Time of Note Date/Time of Note DATE: 11/10/16 TIME: 09:18 Assessment/Plan VTE Prophylaxis VTE Prophylaxis Intervention: SCD's Lines/Catheters IV [facility] Central Line Central line still needed: Yes Urinary Cath still in place: No Assessment/Plan Chief Complaint/Hosp Course 1. Diffuse large B-cell lymphoma (DLBCL). The patient was initiated on chemotherapy. Will continue to monitor the patient for any tumor lysis syndrome. 2. Large partially obstructing gastric antral mass with extensive ulceration. Status post esophagogastroduodenoscopy. Stenting felt unnecessary as the patient has patent gastrojejunostomy. 3. Intractable nausea and vomiting secondary to #1 and #2. Largely resolved. Continue antiemetics and prokinetics. 4. Type 2 diabetes mellitus. Hemoglobin A1c 6.8. Diet controlled. Will avoid giving any new medications at this time since the patient has been initiated on chemotherapy. Nevertheless, the patient's random blood glucose is within normal limits. 5. Constipation. Continue routine stool softeners and PRN laxatives. 6. Leukocytosis. Most probably secondary to Neupogen. Monitor. 7. Fluid, electrolytes and nutrition. Continue carbohydrate controlled diet. 8. Deep venous thrombosis prophylaxis. Bilateral sequential compression devices. 9. Gastrointestinal prophylaxis. Proton pump inhibitors. 10. Continue management as per oncology. Pending discharge. Await approval of home medications by insurance before discharge. The patient is clinically stable to be discharged. Case discussed with Dr. Ferris. Problems: Subjective 24 Hr Interval Summary Free Text/Dictation Had a small bowel last night. Exam/Review of Systems Vital Signs Vitals Vital Signs Date Time Temp Pulse Resp B/P Pulse Ox O2 Delivery O2 Flow Rate FiO2 11/10/16 07:49 98.2 67 16 110/55 97 11/09/16 20:10 Room Air Intake and Output 11/09/16 11/09/16 11/10/16 15:00 23:00 07:00 Intake Total 2650 ml Balance 2650 ml Exam GENERAL: This is a well-built, well-nourished male sitting in the bed in no apparent distress. HEENT: Head normocephalic and atraumatic. Eyes: Anicteric sclerae. Conjunctivae clear. ENT: Nasal septum is midline. Oral mucosa is moist. NECK: Supple. No JVD noticed. RESPIRATORY: Bilaterally clear to auscultation. No adventitious breath sounds heard. No use of accessory muscles of respiration. CARDIAC: Regular rate and rhythm. No murmurs heard. ABDOMEN: Soft, nontender and nondistended. Bowel sounds positive in all 4 quadrants. GENITOURINARY: Deferred. EXTREMITIES: No cyanosis, no clubbing, no edema. Peripheral pulses are palpable. NEUROLOGIC: Cranial nerves II through XII grossly intact. No focal deficits. PSYCHIATRIC: Normal mood and affect. SKIN: Clean, dry and intact. Results Result Diagram: 11/10/16 0430 11/09/16 0430 Results 24 hrs Laboratory Tests Test 11/09/16 11:59 11/09/16 16:58 11/09/16 21:17 11/10/16 04:30 Bedside Glucose 113 102 103 Basophils # Pending Basophils % Pending Blood Morphology Comment Eosinophils # Pending Eosinophils % Pending Hematocrit 29.5 L Hemoglobin 10.2 L Lymphocytes # Pending Lymphocytes % Pending Mean Corpuscular Hemoglobin 29.4 Mean Corpuscular Hemoglobin Concent 34.5 Mean Corpuscular Volume 85.4 Mean Platelet Volume 6.4 L Monocytes # Pending Monocytes % Pending Neutrophils # Pending Neutrophils % Pending Nucleated Red Blood Cells # Pending Nucleated Red Blood Cells % Pending Platelet Count 195 Red Blood Count 3.46 L Red Cell Distribution Width 13.7 White Blood Count 17.9 #H Test 11/10/16 08:19 Bedside Glucose 84 Medications Medications Current Medications Zolpidem Tartrate (Ambien) 5 mg HS PRN PO INSOMNIA Last administered on 22:29; Admin Dose 5 MG; Start 10/22/16 at 22:30 Docusate Sodium (Colace) 100 mg BID PO Last administered on 11/10/16 08:21; Admin Dose 100 MG; Start 10/22/16 at 23:30 Ondansetron HCl (Zofran Inj) 4 mg Q6H PRN IV NAUSEA AND/OR VOMITING Last administered on 11/02/16 10:43; Admin Dose 4 MG; Start 10/22/16 at 23:30 Acetaminophen (Tylenol Tab) 650 mg Q6H PRN PO PAIN AND OR ELEVATED TEMP Last administered on 11/10/16 00:46; Admin Dose 650 MG; Start 10/22/16 at 23:30 Pantoprazole (Protonix Iv) 40 mg DAILY@06 IV Last administered on 11/10/16 05: 44; Admin Dose 40 MG; Start 10/23/16 at 06:00 Diagnostic Test (Pha) 1 ea 1 ea 02 XX Last administered on 11/05/16 02:18; Admin Dose 1 EA; Start 10/23/16 at 02:00 Sodium Chloride (NS) 1,000 ml @ 80 mls/hr [id number] IV Last administered on 11/10 05:45; Admin Dose 80 MLS/HR; Start 10/22/16 at 23:30 Miscellaneous Information 1 ea NOTE XX ; Start 10/22/16 at 23:30 Glucose (Glutose) 15 gm Q15M PRN PO DECREASED GLUCOSE; Start 10/22/16 at 23:30 Glucose (Glutose) 22.5 gm Q15M PRN PO DECREASED GLUCOSE; Start 10/22/16 at 23: 30 Dextrose (D50w Syringe) 25 ml Q15M PRN IV DECREASED GLUCOSE; Start 10/22/16 at 23:30 Dextrose (D50w Syringe) 50 ml Q15M PRN IV DECREASED GLUCOSE; Start 10/22/16 at 23:30 Glucagon (Glucagen) 1 mg Q15M PRN IM DECREASED GLUCOSE; Start 10/22/16 at 23: 30 Glucose (Glutose) 15 gm Q15M PRN BUCCAL DECREASED GLUCOSE; Start 10/22/16 at 23:30 Metoclopramide HCl (Reglan) 10 mg Q6 IV Last administered on 11/10/16 05:44; Admin Dose 10 MG; Start 10/23/16 at 14:30 Allopurinol 300 mg 300 mg DAILY PO Last administered on 11/10/16 08:21; Admin Dose 300 MG; Start 10/26/16 at 09:00 Ondansetron HCl/ Dextrose (Zofran Inj/D5W) 54 ml @ 108 mls/hr Q6H PRN IV NAUSEA AND/OR VOMITING; Start 10/26/16 at 14:00 Diphenhydramine HCl (Benadryl) 25 mg Q6H PRN IV ALLERGIC REACTION; Start 10/26 at 14:00 Dexamethasone (Decadron) 8 mg ONCE PRN IV ALLERGIC REACTION; Start 10/26/16 at 15:00; Stop 01/24/17 at 14:59 Filgrastim (Neupogen) 300 mcg DAILY@17 SC Last administered on 11/09/16 17:01 ; Admin Dose 300 MCG; Start 11/01/16 at 17:00 Trimethoprim/ Sulfamethoxazole (Bactrim (Ds)) 1 tab TuThSa@09 PO Last administered on 11/09/16 09:15; Admin Dose 1 TAB; Start 10/31/16 at 09:00 Magnesium Hydroxide (Milk Of Mag) 30 ml BID PRN PO CONSTIPATION Last administered on 11/06/16 21:49; Admin Dose 30 ML; Start 10/31/16 at 19:00 Polyethylene Glycol (Miralax) 17 gm BID PO Last administered on 11/10/16 08:21 ; Admin Dose 17 GM; Start 11/05/16 at 13:00 Bisacodyl (Dulcolax) 10 mg DAILY PRN PO CONSTIPATION Last administered on 21:49; Admin Dose 10 MG; Start 11/05/16 at 12:00 Sodium Biphosphate/ Sodium Phosphate (Fleet Enema) 133 ml DAILY PRN [place] CONSTIPATION Last administered on 11/07/16 15:44; Admin Dose 133 ML; Start 10/12 at 09:30 JEAN AUGUSTINE NP Nov 10, 2016 09:20
[2016-11-10 10:30] LABS: LYMPHOCYTES # 0.7 10^3/ul (0.8-2.9); MONOCYTE # 1.4 10^3/ul (0.3-0.9); NEUTROPHIL # 11.5 10^3/ul (1.6-7.5)
[2016-11-10] MEDS: [UNRECOGNIZED DRUG - REMARK] XX SCH (16:30)
[2016-11-10 19:53] VITALS: BP 102/58; RESP 18
[2016-11-11] MEDS: [UNRECOGNIZED DRUG - REMARK] XX SCH ×2 (00:30→08:30)
[2016-11-11] MEDS: METOCLOPRAMIDE 10 MG INJ IV SCH ×3 (00:45→12:00)
[2016-11-11] MEDS: ACCUCHECK XX SCH (02:00)
[2016-11-11 05:56] LABS: BASOPHILS % 0.2 % (0.0-2.0); EOSINOPHILS # 0.2 10^3/ul (0.0-0.5); EOSINOPHILS % 1.5 % (0.0-7.0); HEMATOCRIT 30.4 % (42.0-52.0); HEMOGLOBIN 10.5 g/dl (14.0-18.0); LYMPHOCYTES # 0.9 10^3/ul (0.8-2.9); LYMPHOCYTES % 7.4 % (15.0-51.0); MEAN CORPUSCULAR HEMOGLOBIN 29.7 pg (29.0-33.0); MEAN CORPUSCULAR HGB CONC 34.4 g/dl (32.0-37.0); MEAN CORPUSCULAR VOLUME 86.4 fl (82.0-101.0); MEAN PLATELET VOLUME 6.3 fl (7.4-10.4); MONOCYTE # 0.7 10^3/ul (0.3-0.9); MONOCYTES % 5.7 % (0.0-11.0); NEUTROPHIL # 9.7 10^3/ul (1.6-7.5); NEUTROPHILS % 85.2 % (39.0-77.0); PLATELET COUNT 215 10^3/UL (140-440); RED BLOOD COUNT 3.51 10^6/ul (4.70-6.10); RED CELL DISTRIBUTION WIDTH 13.7 % (11.5-14.5); UNCORRECTED WBC 11.4 10^3/ul (4.8-10.8); WHITE BLOOD COUNT 11.4 10^3/ul (4.8-10.8)
[2016-11-11 06:01] LABS: CONDITION 1; LH ANALYZER COMMENTS 1; SUSPECT 1
[2016-11-11 06:12] LABS: POTASSIUM 3.5 mmol/L (3.5-5.1)
[2016-11-11 06:13] LABS: MAGNESIUM 1.9 mg/dl (1.7-2.5); PHOSPHORUS 4.5 mg/dl (2.5-4.9)
[2016-11-11 06:14] LABS: CREATININE 0.49 mg/dl (0.61-1.24)
[2016-11-11 06:15] LABS: CALCIUM 8.1 mg/dl (8.4-10.2)
[2016-11-11] MEDS: PANTOPRAZOLE 40 MG INJ IV SCH (06:51)
[2016-11-11] MEDS: SOD CHLORIDE 0.9% 1,000 ML IV SCH (06:52)
[2016-11-11] MEDS: INSULIN ASPART [NOVOLOG] 3 ML PEN SC SCH ×2 (07:50→13:08)
[2016-11-11 08:09] VITALS: BP 119/65; RESP 18
[2016-11-11] MEDS: ALLOPURINOL 300 MG TAB PO SCH (08:36)
[2016-11-11] MEDS: DOCUSATE SODIUM 100 MG CAP PO SCH (08:36)
[2016-11-11] MEDS: POLYETHYLENE GLYCOL 17 GM PACKET PO SCH (08:37)
[2016-11-11] MEDS ORDERED: HEPARIN (100 UNITS/ML) 5 ML SYG CATHETER ONE (14:30)
--- NOTE | 2016-11-11 14:41 | CONS ---
Date/Time of Note Date/Time of Note DATE: 11/11/16 TIME: 14:39 Assessment/Plan Assessment/Plan Chief Complaint/Hosp Course The patient is a 61 year old male with recent diagnosis of gastric lymphoma in [place], with nausea and vomiting due to gastric outlet obstruction. 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 The lymphoma has a Ki 67 high at 95%. BCL2 and BCL6 positive, FISH pending for BCL2, BCL6 and Myc. Given double expression of BCL2 and BCL6, pt has been started on R-EPOCH chemotherapy until FISH results return. Problems: Additional Assessment/Plan -s/p chemotherapy which he tolerated very well Rituximab 375 mg IV D1 Etoposide 50 mg/m2 IV over 24 hours D1-4 Doxorubicin 10 mg/m2 IV over 24 hours D1-4 Vincristine 0.4 mg/m2 IV over 24 hours D1-4 Cyclophosphamide 750 mg/m2 IV over 15 minutes D5 Prednisone 60 mg/m2 PO D1-5 - Patient needs neupogen 300 mcg x 10 days or neulasta 6 mg subcutaneous x 1 starting D6. Pt has received 6 doses. Last counts showed WBC declining, if ANC nadirs and starts recovering then can consider discharging prior to 10 days of neupogen administration. - Check LDH, uric acid daily to monitor for tumor lysis, will continue allopurinol with chemotherapy as tumor lysis prophylaxis, on bactrim 3x/week prophylaxis - TTE shows normal EF. HIV, hepatitis panel negative - bone marrow bx performed 10/30/16, shows no evidence of involvement of malignant lymphoma in the bone marrow - FISH for BCL6 positive, but negative for BCL2 and MYC, thus not double or triple hit. Patient can received R-CHOP chemotherapy for the next cycle when seen as an outpatient. Order already submitted. -continue, bactrim ppx, allopurinol, colace and zofran prn - Patient receiving zofran prn, reglan atc - will place case management order for patient to follow up with Dr. Stephanie Quiñones upon discharge and outpatient PET/CT - ok to discharge from my perspective once neupogen approved. RN to provide injection teaching. Consultation Date/Type/Reason Admit Date/Time Oct 22, 2016 at 19:46 Initial Consult Date 10/24/16 Type of Consultation: Hematology/Oncology Reason for Consultation diffuse large b cell lymphoma of stomach Referring Provider: POOJA VILLA 24 HR Interval Summary Free Text/Dictation no acute overnight events Exam/Review of Systems Vital Signs Vitals Vital Signs Date Time Temp Pulse Resp B/P Pulse Ox O2 Delivery O2 Flow Rate FiO2 11/11/16 08:09 97.9 74 18 119/65 96 11/09/16 20:10 Room Air Intake and Output 11/10/16 11/10/16 11/11/16 14:59 22:59 06:59 Intake Total 1760 ml 1000 ml Balance 1760 ml 1000 ml Exam Constitutional: alert, oriented Psych: no complaints Head: atraumatic, normocephalic Eyes: nl conjunctiva ENMT: nl external ears & nose Neck: non-tender, supple Respiratory: clear to auscultation Cardiovascular: nl pulses, regular rate and rhythm Gastrointestinal: nl liver, spleen, soft Musculoskeletal: nl extremities to inspection, nl gait and stance Extremities: normal pulses Results Result Diagram: 11/11/168 11/11/16 0428 Results 24 hrs Laboratory Tests Test 11/10/16 16:36 11/10/16 21:25 11/11/16 04:28 11/11/16 08:35 Bedside Glucose 151 166 93 Anion Gap 11 Basophils # 0.0 Basophils % 0.2 Blood Morphology Comment Blood Urea Nitrogen 8 Calcium Level 8.1 L Carbon Dioxide Level 27 Chloride Level 102 Creatinine 0.49 L Eosinophils # 0.2 Eosinophils % 1.5 Glucose Level 77 Hematocrit 30.4 L Hemoglobin 10.5 L Lymphocytes # 0.9 Lymphocytes % 7.4 L Magnesium Level 1.9 Mean Corpuscular Hemoglobin 29.7 Mean Corpuscular Hemoglobin Concent 34.4 Mean Corpuscular Volume 86.4 Mean Platelet Volume 6.3 L Monocytes # 0.7 Monocytes % 5.7 Neutrophils # 9.7 H Neutrophils % 85.2 H Nucleated Red Blood Cells # 0.0 Nucleated Red Blood Cells % 0.0 Phosphorus Level 4.5 Platelet Count 215 Potassium Level 3.5 Red Blood Count 3.51 L Red Cell Distribution Width 13.7 Sodium Level 136 White Blood Count 11.4 #H Test 11/11/16 12:23 Bedside Glucose 191 Medications Medications Current Medications Zolpidem Tartrate (Ambien) 5 mg HS PRN PO INSOMNIA Last administered on t 22:29; Admin Dose 5 MG; Start 10/22/16 at 22:30 Docusate Sodium (Colace) 100 mg BID PO Last administered on 11/11/16 08:36; Admin Dose 100 MG; Start 10/22/16 at 23:30 Ondansetron HCl (Zofran Inj) 4 mg Q6H PRN IV NAUSEA AND/OR VOMITING Last administered on 11/02/16 10:43; Admin Dose 4 MG; Start 10/22/16 at 23:30 Acetaminophen (Tylenol Tab) 650 mg Q6H PRN PO PAIN AND OR ELEVATED TEMP Last administered on 11/10/16 00:46; Admin Dose 650 MG; Start 10/22/16 at 23:30 Pantoprazole (Protonix Iv) 40 mg DAILY@06 IV Last administered on 11/11/16 06: 51; Admin Dose 40 MG; Start 10/23/16 at 06:00 Diagnostic Test (Pha) 1 ea 1 ea 02 XX Last administered on 11/05/16 02:18; Admin Dose 1 EA; Start 10/23/16 at 02:00 Sodium Chloride (NS) 1,000 ml @ 80 mls/hr [id number] IV Last administered on 11/11 06:52; Admin Dose 80 MLS/HR; Start 10/22/16 at 23:30 Miscellaneous Information 1 ea NOTE XX ; Start 10/22/16 at 23:30 Glucose (Glutose) 15 gm Q15M PRN PO DECREASED GLUCOSE; Start 10/22/16 at 23:30 Glucose (Glutose) 22.5 gm Q15M PRN PO DECREASED GLUCOSE; Start 10/22/16 at 23: 30 Dextrose (D50w Syringe) 25 ml Q15M PRN IV DECREASED GLUCOSE; Start 10/22/16 at 23:30 Dextrose (D50w Syringe) 50 ml Q15M PRN IV DECREASED GLUCOSE; Start 10/22/16 at 23:30 Glucagon (Glucagen) 1 mg Q15M PRN IM DECREASED GLUCOSE; Start 10/22/16 at 23: 30 Glucose (Glutose) 15 gm Q15M PRN BUCCAL DECREASED GLUCOSE; Start 10/22/16 at 23:30 Metoclopramide HCl (Reglan) 10 mg Q6 IV Last administered on 11/11/16 06:51; Admin Dose 10 MG; Start 10/23/16 at 14:30 Allopurinol 300 mg 300 mg DAILY PO Last administered on 11/11/16 08:36; Admin Dose 300 MG; Start 10/26/16 at 09:00 Ondansetron HCl/ Dextrose (Zofran Inj/D5W) 54 ml @ 108 mls/hr Q6H PRN IV NAUSEA AND/OR VOMITING; Start 10/26/16 at 14:00 Diphenhydramine HCl (Benadryl) 25 mg Q6H PRN IV ALLERGIC REACTION; Start 10/26 at 14:00 Dexamethasone (Decadron) 8 mg ONCE PRN IV ALLERGIC REACTION; Start 10/26/16 at 15:00; Stop 01/24/17 at 14:59 Trimethoprim/ Sulfamethoxazole (Bactrim (Ds)) 1 tab TuThSa@09 PO Last administered on 11/09/16 09:15; Admin Dose 1 TAB; Start 10/31/16 at 09:00 Magnesium Hydroxide (Milk Of Mag) 30 ml BID PRN PO CONSTIPATION Last administered on 11/06/16 21:49; Admin Dose 30 ML; Start 10/31/16 at 19:00 Polyethylene Glycol (Miralax) 17 gm BID PO Last administered on 11/11/16 08:37 ; Admin Dose 17 GM; Start 11/05/16 at 13:00 Bisacodyl (Dulcolax) 10 mg DAILY PRN PO CONSTIPATION Last administered on 21:49; Admin Dose 10 MG; Start 11/05/16 at 12:00 Sodium Biphosphate/ Sodium Phosphate (Fleet Enema) 133 ml DAILY PRN [place] CONSTIPATION Last administered on 11/07/16 15:44; Admin Dose 133 ML; Start 10/12 at 09:30 STEPHANIE QUIÑONES M.D. Nov 11, 2016 14:41
--- NOTE | 2016-11-12 11:08 | DS ---
DATE OF ADMISSION: 10/22/2016 DATE OF DISCHARGE: 11/11/2016 DISCHARGE DIAGNOSES: 1. Diffuse large B-cell lymphoma, now on chemotherapy . 2. Large obstructing gastric antral mass. 3. Extensive ulcerations as per the EGD. 4. Intractable nausea and vomiting, resolved. 5. Type 2 diabetes. A1c is 6.8. Lifestyle changes recommended. 6. Constipation, resolved. 7. Leukopenia, resolved with Neupogen. HOSPITAL COURSE: The patient is a 61-year-old male with history of diabetes who was recently diagno sed with gastric lymphoma in [place] just about a month prior to his admission. The patient presente d with intermittent abdominal pain, nausea, vomiting. He was diagnosed with a gastric outlet obstru ction secondary to a gastric mass with a recent diagnosis of metastatic gastric lymphoma. The patie nt was seen by oncology, did receive chemotherapy, which he tolerated well. The patient had leukope eneida and required Neupogen, which patient received. Insurance was not covering Neupogen so patient h ad to stay in house while he got Neupogen for multiple days. Finally his white count stabilized and was felt to be stable for discharge per oncology. On date of discharge, patient's vitals, labs, an d physical exam were stable. He had no acute complaints. Questions were answered. Oncology once a gain cleared for discharge with recommendation to follow up with oncology as an outpatient. The pat ient had no acute complaints the day of discharge and questions were answered. CONDITION ON DISCHARGE: Stable. DISPOSITION: To home. MEDICATIONS: 1. The patient was given a prescription for allopurinol. 2. Colace. 3. Zofran. 4. Bactrim. 5. The patient is to continue home Dexilant. Stop his . FOLLOWUP: The patient is to follow up with his PCP in 1 to 2 weeks and with oncology as instructed. Greater than 30 minutes was spent coordinating discharge of patient. Dictated By: NING HOANG/AMBROSE Conf#: [id number] DID#: [id number]
== END 2016-11-11 14:50 | disposition home or self-care (01) | DRG 841 ==
LOC: E/R 14:59 → MS2 19:46 → MS1 10-25 22:57
PROVIDERS: ADMIT Family Medicine; ATTEND Family Medicine
PROC: 0DB68ZX Excision of Stomach, Via Natural or Artificial Opening Endoscopic, Diagnostic (ICD-10-PCS; principal; 2016-10-23 17:30)
PROC: 0JH60XZ Insertion of Tunneled Vascular Access Device into Chest Subcutaneous Tissue and Fascia, Open Approach (ICD-10-PCS; 2016-10-25)
PROC: B2141ZZ Fluoroscopy of Right Heart using Low Osmolar Contrast (ICD-10-PCS; 2016-10-25)
PROC: 02H633Z Insertion of Infusion Device into Right Atrium, Percutaneous Approach (ICD-10-PCS; 2016-10-25 11:00)
PROC: 3E04305 Introduction of Other Antineoplastic into Central Vein, Percutaneous Approach (ICD-10-PCS; 2016-10-26)
PROC: 07DR3ZX Extraction of Iliac Bone Marrow, Percutaneous Approach, Diagnostic (ICD-10-PCS; 2016-10-30)
DX: C83.39 Diffuse large B-cell lymphoma, extranodal and solid organ sites (principal); K31.1 Adult hypertrophic pyloric stenosis; C77.8 Secondary and unspecified malignant neoplasm of lymph nodes of multiple regions; E11.9 Type 2 diabetes mellitus without complications; K25.9 Gastric ulcer, unspecified as acute or chronic, without hemorrhage or perforation; D72.829 Elevated white blood cell count, unspecified; N40.0 Benign prostatic hyperplasia without lower urinary tract symptoms; R11.2 Nausea with vomiting, unspecified; Z80.8 Family history of malignant neoplasm of other organs or systems; R13.10 Dysphagia, unspecified
CPT/HCPCS: 36415; 71260; 74000; 74177; 77012; 80048; 80053; 81003; 82962; 83036; 83615; 83690; 83735; 84100; 84443; 84560; 85025; 85610; 85730; 86703; 86704; 86709; 86803; 87081; 87340; 88305; 88312; 88313; 88341; 88342; 93306; 96374; 96375; J9181; J9310; C1769; C1788; C9113; J1642; J1644; J1815; J2250; J2405; J2765; J3010; J7030; J7040; J7050; J7512; J9000; J9070; J9370; Q9967